=== PATIENT | male | born 1935 | race Caucasian/White ===

== ENCOUNTER → 2017-09-01 14:30 | Outpatient (CLI) | payer MEDICARE, OTHER, SELFPAY ==
--- NOTE | 2017-09-01 14:35 | US_ITS ---
STUDY: SUPERFICIAL ULTRASOUND - AREA OF THE PALPABLE ABNORMALITY JUST LATERAL TO THE KNEE JOINT. REASON FOR EXAM: Male, 82 years old. Palpable abnormality. TECHNIQUE: A superficial ultrasound was performed with real-time and static bloom-scale imaging. COMPARISON: None. FINDINGS: The area of the palpable abnormality corresponds to a 1.2 cm x 1.7 cm x 0.8 cm fluid collection. This may represent a Davila's cyst. US/Ext Non Vasc Limited/Soft Tiss IMPRESSION: Findings suggestive of Davila's cyst. Electronically Signed: Bryson Paige MD at 15:48 EDT Tel [phone], Service support ,
== END ==
PROVIDERS: Family Provider Family Medicine; PCP Family Medicine; Visit Provider Family Medicine
DX: R22.42 Localized swelling, mass and lump, left lower limb (principal)
CPT/HCPCS: 76882

== ENCOUNTER 2018-07-26 19:55 | Emergency (ER) | payer MEDICARE, OTHER, SELFPAY ==
[2018-05-13 10:56] VITALS: BMI 31.4
[2018-07-26 19:56] VITALS: BP 147/72; PULSE 60; RESP 16; TEMP 36.8; O2SAT 96; BMI 29.4
--- NOTE | 2018-07-26 20:13 | EKG12_ITS ---
Test Reason : Blood Pressure : / mmHG Vent. Rate : 072 BPM Atrial Rate : 068 BPM P-R Int : 000 ms QRS Dur : 136 ms QT Int : 396 ms P-R-T Axes : 000 -82 095 degrees QTc Int : 433 ms Ventricular-paced rhythm with occasional AV dual-paced complexes Abnormal ECG Confirmed by LA MATHEW, FAY ([id number]), managing editor YOSEPH DANIEL ([id number]) on 07/28/2018 1:33:59 PM Referred By: TL Confirmed By:FAY TOVAR MD
--- NOTE | 2018-07-26 20:13 | ED.VISSUMM ---
- ER Visit Summary Date of Service: 07/26/18 Chief Complaint: Palpitations History of Present Illness: The patient is a 83 M, reports feeling of palpitation and skipped beats since this afternoon. No chest pains. No lightheaded symptoms. 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 Denies recent cough. Had 2 loose stools yesterday and one small one today. He is on hydrochlorothiazide. No potassium replacement. Followed by Dr. Michaud, last seen 1.5 months ago. States has his pacemaker checked every 3-4 months. It was not checked the last time. Physical Examination: General: Alert and oriented ?3, no acute distress HEENT: Normocephalic, atraumatic. Moist mucosa membranes Neck: supple, nontender. Cardiovascular: Regular rate and irregular rhythm, no murmurs Respiratory: Normal breath sounds, symmetric, no distress Abdomen: Soft, nontender, nondistended Extremities: Nontender, no edema, pulses intact ?4 Neuro: no focal neurological deficits. Test Results: Paced rhythm, rate of 72, irregular rhythm. BMP: Potassium 3.4 Emergency Department Course and Treatment: Patient EKG concerns for more A. fib rhythm with a known right bundle branch block. His rate controlled. Rates in the 70s. Pacemaker likely demand pace usually thresholds at 60. He denies chest pains or lightheaded symptoms. He had diarrhea yesterday BMP sent noted potassium 3.4 is also on hydrochlorothiazide. Potassium will be replaced. Remain stable rate controlled. He is on metoprolol and Eliquis. Discussed following up as an outpatient with Dr. Watts. All questions were answered. Treatment Plan: [] Disposition: Discharge Impression: 1. Palpitations 2. A. fib rate controlled 3. Hypokalemia This note was generated with [employer] software. It may contain incorrect words, spelling, and punctuation that were not noted in review of the chart prior to signing ED Disposition - Plan for ED Patient: Disposition: Home or Assisted Living Diagnosis: Atrial fibrillation with controlled ventricular rate, Hypokalemia Instructions: ED Afib Referrals: Prosper Banks MD [Primary Care Provider] - Cal Michaud MD [STAFF PHYSICIAN] - 3-5 Days
[2018-07-26 21:02] LABS: Anion Gap 5 (5-15); BUN 26 mg/dL (7-18); Chloride 102 mmol/L (98-107); Creatinine, Serum 1.04 mg/dL (0.70-1.30); EST Glomerular Filtration Rate 72 mL/min (>60); Est Glom Filt Rate - Afr Amer 88 mL/min (>60); Estimated Creatinine Clearance 54.59 ml/min; Glucose 115 mg/dL (74-106); Potassium 3.4 mmol/L (3.5-5.1); Sodium Level 139 mmol/L (136-145)
[2018-07-26 21:12] VITALS: BP 131/96; PULSE 69; RESP 15; O2SAT 98
[2018-07-26 21:46] VITALS: BP 131/68; PULSE 60; RESP 18; O2SAT 98
== END 2018-07-26 21:55 | disposition home or self-care (01) ==
PROVIDERS: Emergency Provider Emergency Medicine; Family Provider Family Medicine; PCP Family Medicine
DX: I48.0 Paroxysmal atrial fibrillation (principal); E87.6 Hypokalemia; I10 Essential (primary) hypertension; I45.10 Unspecified right bundle-branch block; Z95.0 Presence of cardiac pacemaker; Z79.01 Long term (current) use of anticoagulants; Z79.899 Other long term (current) drug therapy; Z87.891 Personal history of nicotine dependence
CPT/HCPCS: 80048; 93005; 99285; A4216

== ENCOUNTER → 2018-08-11 16:03 | Outpatient (CLI) | payer MEDICARE, OTHER, SELFPAY ==
[2018-08-11 15:20] VITALS: BMI 29.7
[2018-08-11 17:02] LABS: Anion Gap 3 (5-15); BUN 23 mg/dL (7-18); BUN/Creat Ratio 25.6 RATIO (10-20); Calcium,Total 8.9 mg/dL (8.5-10.1); Chloride 105 mmol/L (98-107); EST Glomerular Filtration Rate 86 mL/min (>60); Est Glom Filt Rate - Afr Amer 104 mL/min (>60); Glucose 105 mg/dL (74-106); Potassium 3.7 mmol/L (3.5-5.1); Sodium Level 139 mmol/L (136-145)
== END ==
PROVIDERS: Family Provider Family Medicine; PCP Family Medicine; Referring Provider Physician Assistant Medical; Visit Provider Physician Assistant Medical
DX: I48.0 Paroxysmal atrial fibrillation (principal)
CPT/HCPCS: 36415; 80048

== ENCOUNTER → 2020-05-28 12:50 | Outpatient (CLI) | payer MEDICARE, OTHER, SELFPAY ==
[2020-05-15 09:32] VITALS: BMI 29.7
--- NOTE | 2020-05-28 12:52 | ECHOD_ITS ---
Reason For Study: Dyspnea/SOB Procedure This was a 2D Doppler, Color Flow transthoracic echocardiogram. Exam performed in department. Left Ventricle Normal LV size. Left ventricular systolic function is normal. The estimated ejection fraction is 65 %. Stage 1 diastolic dysfunction. No regional wall motion abnormalities noted. Right Ventricle Normal RV size. ICD or pacer leads identified within the right ventricle. Normal systolic function. Atria Normal left atrium. Normal right atrium. Mitral Valve Normal mitral valve. Tricuspid Valve Normal tricuspid valve. Mild (1+) tricuspid valve insufficiency. Pulmonary artery systolic pressure is 40 mmHg. Aortic Valve Normal aortic valve. Trisinus/trileaflet aortic valve. Pulmonic Valve Normal pulmonic valve. Great Vessels Normal aortic root. The pulmonary artery is normal size. Normal inferior vena cava. Pericardium/Pleural No pericardial effusion. MMode/2D Measurements & Calculations LVIDd: 4.0 cm IVSd: 1.8 cm Ao root diam: 3.6 cm LVIDs: 2.4 cm LVPWd: 1.3 cm RVDd: 3.7 cm FS: 41.1 % LAV(MOD-bp): 54.5 ml LVAd ap4: 27.6 cm2 SV(MOD-sp4): 46.1 ml LAV(MOD-bp) Indexed: 26.8 ml/m2 EDV(MOD-sp4): 71.2 ml LAV(MOD-sp2): 51.8 ml EDV(sp4-el): 73.2 ml LAV(MOD-sp4): 58.0 ml LVAs ap4: 14.1 cm2 ESV(MOD-sp4): 25.1 ml ESV(sp4-el): 23.9 ml EF(MOD-sp4): 64.8 % EF(sp4-el): 67.4 % SV(sp4-el): 49.4 ml LA A4 area: 20.1 cm2 LA dimension(2D): 4.7 cm RA A4 area: 21.5 cm2 Doppler Measurements & Calculations MV E max tavo: 74.9 cm/sec Lat Peak E' Tavo: 8.6 cm/sec Med Peak E' Tavo: 6.2 cm/sec MV A max tavo: 82.1 cm/sec E/E' lat: 8.7 E/E' med: 12.1 MV E/A: 0.91 Ao V2 max: 187.2 cm/sec LV V1 max: 155.6 cm/sec PA V2 max: 116.5 cm/sec Ao max P.0 mmHg LV V1 max P.7 mmHg Ao V2 mean: 134.3 cm/sec Ao mean P.9 mmHg Ao V2 VTI: 38.7 cm TR max tavo: 298.1 cm/sec TR max P.5 mmHg Interpretation Summary Normal LV size. Left ventricular systolic function is normal. The estimated ejection fraction is 65 %. Stage 1 diastolic dysfunction. Pulmonary artery systolic pressure is 40 mmHg. ICD or pacer leads identified within the right ventricle. Ordering Physician: Cal Michaud Referring Physician: Prosper Banks Performed By: Celsa Jaime, DENICE, RVT
== END ==
PROVIDERS: PCP Family Medicine; Referring Provider Internal Medicine Cardiovascular Disease; Visit Provider Internal Medicine Cardiovascular Disease
DX: Z01.810 Encounter for preprocedural cardiovascular examination (principal); R06.02 Shortness of breath
CPT/HCPCS: 93306

== ENCOUNTER → 2021-04-02 11:03 | Outpatient (CLI) | payer MEDICARE, OTHER, SELFPAY ==
[2021-04-02 12:30] LABS: Hematocrit 40.5 % (40-54); Hemoglobin 13.2 g/dL (13.0-16.5); Mean Corp Hgb Conc 32.6 g/dL (32-36); Mean Platelet Vol. 10.2 fl (6.2-12.0); Platelet Count 137 K/mm3 (150-450); RBC Distribution Width CV 12.6 % (11.6-14.6); RBC Distribution Width SD 42.7 fl (35.1-43.9); White Blood Count 8.7 K/mm3 (4.4-11.0)
[2021-04-02 13:18] LABS: BNP,B-Type NATRIURETIC PEPTIDE 89.7 pg/mL (0-100)
[2021-04-02 13:31] LABS: CRP < 2.90 mg/L (0.0-3.0); Troponin-I HS 8 pg/mL (3.0-78.0)
== END ==
PROVIDERS: PCP Family Medicine; Referring Provider Nurse Practitioner Family; Visit Provider Nurse Practitioner Family
DX: M79.89 Other specified soft tissue disorders (principal); I25.10 Atherosclerotic heart disease of native coronary artery without angina pectoris; I48.0 Paroxysmal atrial fibrillation; I25.9 Chronic ischemic heart disease, unspecified; R06.02 Shortness of breath
CPT/HCPCS: 36415; 83880; 84443; 84484; 85027; 86140

== ENCOUNTER 2021-04-10 10:36 | Outpatient (CLI) | payer MEDICARE, OTHER, SELFPAY ==
--- NOTE | 2021-04-10 10:39 | VDLE_ITS ---
Reason For Study: LLE swelling Procedure LEFT This is a venous duplex using B-mode, color GSV is normal. flow and spectral Doppler. CFV is compressible, spontaneous, phasic, Exam performed in department. competent, and demonstrates normal A preliminary report was called and/or faxed augmentation. to Darcie Patrick @ 11:00 am @ FV is compressible, spontaneous, phasic, . competent and demonstrates normal augmentation. POP V is compressible, spontaneous, phasic, competent and demonstrates normal augmentation. T/P Trunk is compressible. PTV is compressible. LT PerV is compressible. Non-vasuclar structure noted in the pop fossa space measuring 3.17cm x 1.47cm. VL/Venous Duplex US, Unilateral Interpretation Summary There is no evidence of left lower extremity deep vein thrombosis. Left great s aphenous vein appears patent and compressible segmentally. Left popliteal space oval nonvascular cyst ic structure measuring 3.17 x 1.47 cm in diameter. Clinical correlation would be appropriate . This appears to be somewhat more superficial than a typical Davila's cyst. Ordering Physician: Darcie Patrick Referring Physician: Prosper Bakns Performed By: Caity Tian, DENICE, RVT
== END 2021-04-10 23:59 | disposition short-term general hospital (02) ==
PROVIDERS: PCP Family Medicine; Referring Provider Physician Assistant Medical; Visit Provider Physician Assistant Medical
DX: R60.0 Localized edema (principal)
CPT/HCPCS: 93971

== ENCOUNTER 2021-04-12 10:54 | Outpatient (CLI) | payer MEDICARE, OTHER, SELFPAY ==
--- NOTE | 2021-04-12 10:59 | ECHOD_ITS ---
Reason For Study: Murmur Procedure This was a 2D Doppler, Color Flow transthoracic echocardiogram. Exam performed in department. Left Ventricle Normal LV size. Left ventricular systolic function is normal. The estimated ejection fraction is 70 %. Stage 1 diastolic dysfunction. No regional wall motion abnormalities noted. Right Ventricle Normal RV size. ICD or pacer leads identified within the right ventricle. Normal systolic function. Atria Normal left atrium. Normal right atrium. Mitral Valve Normal mitral valve. Tricuspid Valve Normal tricuspid valve. Mild tricuspid valve insufficiency. Pulmonary artery systolic pressure is 34 mmHg. Aortic Valve Normal aortic valve. Trisinus/trileaflet aortic valve. Mild (1+) aortic valve insufficiency. Pulmonic Valve Normal pulmonic valve. Great Vessels Normal aortic root. The pulmonary artery is normal size. Normal inferior vena cava. Pericardium/Pleural No pericardial effusion. MMode/2D Measurements & Calculations LVIDd: 4.2 cm IVSd: 1.1 cm LA dimension: 3.5 cm LVIDs: 2.2 cm LVPWd: 0.71 cm FS: 46.6 % LAV(MOD-bp): 64.1 ml LA A4 area: 22.3 cm2 RA A4 area: 19.1 cm2 LAV(MOD-bp) Indexed: 30.5 ml/m2 LAV(MOD-sp2): 61.7 ml LAV(MOD-sp4): 68.1 ml Time Measurements MV dec time: 0.29 sec Doppler Measurements & Calculations MV E max tavo: 67.7 cm/sec Lat Peak E' Tavo: 6.9 cm/sec Med Peak E' Tavo: 7.1 cm/sec MV A max tavo: 90.5 cm/sec E/E' lat: 9.8 E/E' med: 9.5 MV E/A: 0.75 MV V2 max: 95.1 cm/sec MV P1/2t max tavo: 80.1 cm/sec Ao V2 max: 185.1 cm/sec MV max P.6 mmHg MV P1/2t: 121.1 msec Ao max P.7 mmHg MV V2 mean: 48.7 cm/sec MV dec slope: 193.8 cm/sec2 MV mean P.1 mmHg MVA(P1/2t): 1.8 cm2 MV V2 VTI: 30.1 cm AI max tavo: 344.6 cm/sec LV V1 max: 159.4 cm/sec PA V2 max: 113.4 cm/sec AI max P.5 mmHg LV V1 max P.2 mmHg AI dec slope: 124.5 cm/sec2 AI P1/2t: 810.4 msec TR max tavo: 264.7 cm/sec TR max P.0 mmHg ECHO/Echo Complete Interpretation Summary Normal LV size. Left ventricular systolic function is normal. The estimated ejection fraction is 70 %. Stage 1 diastolic dysfunction. Pulmonary artery systolic pressure is 34 mmHg. Ordering Physician: Darcie Patrick Referring Physician: Darcie Patrick Performed By: Duncan Ambrocio RCS
== END 2021-04-12 23:59 | disposition short-term general hospital (02) ==
LOC: CVS 10:58
PROVIDERS: PCP Family Medicine; Referring Provider Physician Assistant Medical; Visit Provider Physician Assistant Medical
DX: I48.0 Paroxysmal atrial fibrillation (principal)
CPT/HCPCS: 93306

== ENCOUNTER 2021-11-26 18:19 | Emergency (ER) | payer MEDICARE, OTHER, SELFPAY ==
[2021-11-26 18:20] VITALS: BP 145/89; PULSE 70; RESP 18; TEMP 36.6; O2SAT 97; BMI 28.5
--- NOTE | 2021-11-26 18:41 | CT_ITS ---
STUDY: CT BRAIN WITHOUT CONTRAST REASON FOR EXAM: Male, 86 years old. dizzy RADIATION DOSAGE (If Supplied By Facility): CTDIvol = ( 44.99 ) mGy, DLP = ( 829.85 ) mGycm TECHNIQUE: Transaxial CT imaging of the brain was performed without administration of intravenous contrast material. Individualized dose optimization techniques were used for this CT. COMPARISON: No relevant priors. FINDINGS: Normal soft tissue structures. Normal calvarium. There is mild cerebral atrophy with widening of the extra-axial spaces and ventricular dilatation. There are areas of decreased attenuation within the white matter tracts of the supratentorial brain, consistent with microvascular disease changes. There is no intracranial hemorrhage. There are no findings of an acute ischemic infarction. Normal visualized paranasal sinuses. CT/Brain/Head without Contrast IMPRESSION: No acute findings. Mild microvascular ischemic changes. Atrophy. Electronically Signed: Jaki Vargas MD at 19:46 EDT Reading Location ID and State: [id number] / Tel , Service support ,
--- NOTE | 2021-11-26 18:42 | EDS_ITS ---
HPI History of Present Illness Chief Complaint: Dizziness Informant: patient Narrative Narrative: Patient presents with episodic dizziness. He states this first episode was Thursday morning when he woke up. When he first stood up he felt dizzy. He had a true sense of spinning and motion. Once he stabilized himself he was able to walk and do his normal activity during the day. When he laid all the way down at night on Thursday he got the symptoms again but they resolved. He has noticed since then that most of the time if he changes position significantly he will get dizziness. For him dizziness is spinning and a sense of motion. It is not syncope or presyncope or lightheadedness. He is not having it sitting in bed. He does not have a history of vertigo. No change in medications. He is on Eliquis for history of A. fib. He also has a pacer. Other than the dizziness episodes he feels fine. No nausea vomiting really. No fevers. No chest pain palpitations. No blood in the stool. [facility] Medical History Bradycardia Essential (primary) hypertension Hyperlipidemia Obstructive sleep apnea Paroxysmal ventricular tachycardia Premature ventricular contractions 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 Home Medications multivitamin with folic acid 400 mcg tablet 1 tab PO DAILY 01/18/13 [History Last Taken 07/26/18] nitroglycerin 0.4 mg sublingual tablet 0.4 mg sublingual Q5M PRN Chest Pain 01/18/13 [History Last Taken 07/26/18] acetaminophen 500 mg capsule 500 mg PO Q6H PRN Pain 04/10/21 [History Last Taken Unknown] latanoprost 0.005 % eye drops 1 drp ophthalmic (eye) DAILY 30 days #2 mL 04/10/21 [History Last Taken Unknown] hydrochlorothiazide 25 mg tablet 25 mg PO QDAY #90 tabs 05/06/21 [Rx Last Taken Unknown] apixaban 5 mg tablet (Eliquis) 5 mg PO BID #180 tabs 08/05/21 [Rx Last Taken Unknown] metoprolol succinate 50 mg tablet,extended release 24 hr 50 mg PO QDAY #90 tabs 08/05/21 [Rx Last Taken Unknown] pravastatin 40 mg tablet 40 mg PO QHS #90 tabs 05/31/22 [Rx Last Taken Unknown] meclizine 25 mg tablet 25 mg PO TID PRN dizziness #20 tabs 11/26/21 [Rx Last Taken Unknown] Allergy/AdvReac Type Severity Reaction Status Date / Time No Known Allergies Allergy Verified 11/26/21 18:23 Family History Father , age 77 Cancer larynx and prostate Surgical History Cardiac pacemaker in situ (01/2013) Social History Smoking Status: Former smoker how long ago did patient quit smokin alcohol intake: current alcohol intake frequency: a few times a week Alcohol type: wine substance use type: does not use caffeine: No ROS ROS ED Constitutional Constitutional ED: Denies chills, fever(s), subjective or sweats Eyes Eyes: Denies blurry vision, change in vision or diplopia ENT ENT ED: Denies rhinorrhea or sore throat Cardiovascular Cardiovascular: Denies chest pain, palpitations or racing heartbeat Respiratory/Chest Respiratory/Chest: Denies cough or dyspnea Gastrointestinal Gastrointestinal: Denies abdominal pain, nausea or vomiting Genitourinary Genitourinary ED: Denies dysuria Musculoskeletal Musculoskeletal: Denies arthralgias or myalgias Integumentary Denies rash Neurologic Neurologic: Denies headache(s), paresthesias or weakness Psychiatric Psychiatric: Denies anxiety Endocrine Endocrinology: Denies polydipsia or polyuria Hematologic/Lymphatic Hematologic/Lymphatic: Reports easy bleeding and easy bruising Allergic/Immunologic Allergic/Immunologic ED: Denies urticaria EXAM Physical Exam Const Vital Signs: 11/26/21 18:20 11/26/21 18:29 11/26/21 19:38 Temperature 98 F Temperature Source Oral Pulse Rate 70 73 Respiratory Rate 18 26 H Respiratory Effort Normal Non-Labored Blood Pressure 145/89 H 134/95 H Blood Pressure Mean 107 108 Pulse Ox 97 94 Oxygen Delivery Method Room Air Room Air 11/26/21 21:00 Temperature Temperature Source Pulse Rate 70 Respiratory Rate 20 H Respiratory Effort Blood Pressure 148/111 H Blood Pressure Mean 123 Pulse Ox 91 Oxygen Delivery Method Room Air Positive well nourished and well developed General Appearance ED: well developed and NAD; Negative for cyanotic or diaphoretic HEENT Reports moist mucous membranes Eyes PERRL and EOMs intact bilaterally Neck no JVD Chest Wall inspection of chest normal Chest Narrative: Pacer in left upper chest wall. Resp normal respiratory effort Cardio regular rate and regular rhythm Rate: other Other Details: Monitor appears to show paced rhythm GI normal to inspection, nondistended, normoactive bowel sounds, non-tender and no masses Palpation: soft Back/Spine no CVA tenderness Extremity normal to inspection General Extremety ED: Negative for tenderness Neuro oriented x3 Neuro Narrative: Patient is not having symptoms now. I did lay him down looking up into the left and right. He really did not have symptoms this time. He states is not every time he moves just sometimes. However, he also was fixated with his eyes on 1 spot and this can suppress vertigo. There was no nystagmus visible Psych mental status grossly normal Skin no rashes or lesions noted Rashes: No rashes noted Trauma: Negative for abrasion MDM MDM MDM Narrative Medical decision making narrative: Patient's labs show minimal anemia which is a nonspecific finding. Electrolytes are overall normal. CT scan shows no acute process. Patient was treated with 1 meclizine here. He was given a little bit of IV fluids. He is feeling better. He actually walked down the [place] and back without difficulty to go to the bathroom. He is not feeling the vertigo at this point. We discussed that he has had symptoms off and on for 3 days. They are generally motion related. He gets a true spinning sense that then goes away. This is not a typical pattern for stroke. We will get him home with meds and close follow- up. We did talk about specific reasons to bring him back. Lab Data Attestation: I reviewed the patient's lab results. Labs: Laboratory Results - last 24 hr 11/26/21 11/26/21 18:55 18:55 WBC 7.0 RBC 4.30 L Hgb 12.7 L Hct 39.3 L MCV 91.4 MCH 29.5 MCHC 32.3 RDW Std Deviation 43.2 RDW Coeff of Jeremiah 13.0 Plt Count 133 L MPV 9.7 Immature Gran % (Auto) 0.300 Neut % (Auto) 76.0 H Lymph % (Auto) 12.4 L [place] % (Auto) 9.1 Eos % (Auto) 1.9 Baso % (Auto) 0.3 Absolute Neuts (auto) 5.3 Absolute Lymphs (auto) 0.87 Nucleated RBC % 0 Sodium 140 Potassium 3.5 Chloride 103 Carbon Dioxide 31.0 Anion Gap 6 BUN 21 H Creatinine 0.98 Estim Creat Clear Calc 54.83 Est GFR (MDRD) Af Amer 93 Est GFR (MDRD) Non-Af 77 BUN/Creatinine Ratio 21.4 H Glucose 105 Calcium 9.2 Radiography Diagnostic Testing: Clinical Impression(s) from Imaging Studies Brain CT 11/26/21 18:41 IMPRESSION: No acute findings. Mild microvascular ischemic changes. Atrophy. Electronically Signed: Jaki Vargas MD at 19:46 EDT Reading Location ID and State: [id number] / Tel , Service support , Discharge Plan Triage Chief Complaint: Dizziness ED Provider: Ranjit Renteria Dx/Rx/DC Orders Clinical Impression: Vertigo Instructions: ED Vertigo, Unspecified Prescriptions: New meclizine 25 mg tablet 25 mg PO TID PRN (Reason: dizziness) Qty: 20 0RF No Action latanoprost 0.005 % drops 1 drp OPHTHALMIC DAILY 30 Days Qty: 2 acetaminophen 500 mg capsule 500 mg PO Q6H PRN (Reason: Pain) nitroglycerin 0.4 MG tablet 0.4 mg SUBLINGUAL Q5M PRN (Reason: Chest Pain) Label Comments: RELIEF CHEST PAIN multivitamin with folic acid 1 TABLET tablet 1 tab PO DAILY Label Comments: VITAMENS hydrochlorothiazide 25 mg tablet 25 mg PO QDAY Qty: 90 3RF metoprolol succinate 50 mg tablet extended release 24 hr 50 mg PO QDAY Qty: 90 3RF Eliquis 5 mg tablet 5 mg PO BID Qty: 180 3RF pravastatin 40 mg tablet 40 mg PO QHS Qty: 90 3RF Primary Care Provider: Manuela Ribera Referrals: Manuela Ribera, [Primary Care Provider] - 3-5 Days Disposition Disposition: Home, Self Care
[2021-11-26] MEDS: Meclizine HCl 25 MG Tablet PO (18:54)
[2021-11-26 19:00] LABS: Absolute Lymphocyte Count 0.87 X10^3/uL (0.83-4.51); Absolute Neutrophil Count 5.3 X10^3/uL (2.0-7.7); Basophil# 0.02 X10^3/uL; Basophil% 0.3 % (0-1); Eosinophil# 0.13 X10^3/uL; Eosinophils% 1.9 % (0-5); Hematocrit 39.3 % (40-54); Hemoglobin 12.7 g/dL (13.0-16.5); Lymphocyte # 0.87 X10^3/ul (0.83-4.51); Lymphocyte % 12.4 % (19-41); Mean Corp Hgb Conc 32.3 g/dL (32-36); Mean Corpuscular Hgb 29.5 pg (27.0-32.0); Mean Corpuscular Volume 91.4 fL (80-94); Mean Platelet Vol. 9.7 fl (6.2-12.0); Monocyte# 0.64 X10^3/uL; Monocyte% 9.1 % (0-10); NRBC Flagged by Analyzer 0 % (0-5); Neutrophil # 5.33 X10^3/uL (2.7-7.7); Platelet Count 133 K/mm3 (150-450); RBC Distribution Width SD 43.2 fl (35.1-43.9)
[2021-11-26 19:14] LABS: Anion Gap 6 (5-15); BUN 21 mg/dL (7-18); BUN/Creat Ratio 21.4 RATIO (10-20); Calcium,Total 9.2 mg/dL (8.5-10.1); Chloride 103 mmol/L (98-107); Creatinine, Serum 0.98 mg/dL (0.70-1.30); EST Glomerular Filtration Rate 77 mL/min (>60); Est Glom Filt Rate - Afr Amer 93 mL/min (>60); Estimated Creatinine Clearance 54.83 ml/min; Glucose 105 mg/dL (74-106); Potassium 3.5 mmol/L (3.5-5.1); Sodium Level 140 mmol/L (136-145)
[2021-11-26 19:38] VITALS: BP 134/95; PULSE 73; RESP 26; O2SAT 94
[2021-11-26 21:00] VITALS: BP 148/111; PULSE 70; RESP 20; O2SAT 91
[2021-11-26 22:35] VITALS: BP 129/79; PULSE 67; RESP 15; O2SAT 94
== END 2021-11-26 22:58 | disposition home or self-care (01) ==
PROVIDERS: Emergency Provider Emergency Medicine; PCP Family Medicine; Visit Provider Emergency Medicine
DX: R42 Dizziness and giddiness (principal); I48.91 Unspecified atrial fibrillation; I10 Essential (primary) hypertension; E78.5 Hyperlipidemia, unspecified; Z95.0 Presence of cardiac pacemaker; Z79.01 Long term (current) use of anticoagulants; Z79.899 Other long term (current) drug therapy; Z87.891 Personal history of nicotine dependence
CPT/HCPCS: 70450; 80048; 85025; 96360; 99285; J7030

== ENCOUNTER 2022-09-02 22:06 | Inpatient (IN) | payer MEDICARE, OTHER, SELFPAY ==
[2022-09-02 22:07] VITALS: BP 124/77; PULSE 78; RESP 16; TEMP 37; O2SAT 97; BMI 28.5
[2022-09-02 22:25] VITALS: BP 121/67; PULSE 70; RESP 15; TEMP 37; O2SAT 97
--- NOTE | 2022-09-02 23:20 | RAD_ITS ---
STUDY: X-RAY - PELVIS AND RIGHT HIP REASON FOR EXAM: Male, 87 years old. Fell on steps. Severe hip pain. TECHNIQUE: 3 views of the pelvis and hip. COMPARISON: None. FINDINGS: There is a non-specific bowel gas pattern. Normal visualized soft tissue structures. There are multiple calcified phleboliths. There are vascular calcifications along the course of the bilateral iliac and femoral arteries. Normal bilateral iliac wings, sacroiliac joints and visualized sacrum. Normal bilateral superior and inferior pubic rami. Normal pubic symphysis. Normal bilateral ischial tuberosities. Normal visualized right femoral head. Normal right acetabulum. Normal right hip joint. RAD/HIP, UNI W/ Pelvis 2-3 Views IMPRESSION: 1. No evidence of right hip fracture or dislocation. 2. Intact pelvis. Electronically Signed: Aubrey Franz DO at 23:55 EDT ,
[2022-09-03] VITALS (7 sets, daily range): BP systolic 118–154; BP diastolic 70–86; PULSE 68–95; RESP 16–20; TEMP 36.3–37.1; O2SAT 93–97; BMI 27.3
--- NOTE | 2022-09-03 01:37 | HP.PCM.HOS_ITS ---
HPI - General General Date of Admission: 09/03/22 Date of Service: 09/03/22 Chief Complaint: severe right hamstring pain HPI Narrative EMMANUEL MARIE, is a 87 M who presents w/ severe right hamstring pain, worsened after stepping up with right leg on steps and then experiencing excruciating pain. He had soreness in right hamstring prior for several weeks (does not recall inciting event several weeks ago). He required a neighbor for assistance in moving and getting to hospital. He lives alone, with son in basement who is sometimes nearby. There is only pain with attempted weight bearing or flexion. No pain present while lying in bed. Xrays without fracture. He could not walk in ED so was admitted. The patient realizes he may need PT or rehab. He is very active for 87 yo. He is on eliquis for paroxysmal A fib and denies bleeding events but does have easy bruising. [facility] Medical History (Updated 09/03/22 @ 01:[address] David Frederick MD) Bradycardia Essential (primary) hypertension Former smoker Hyperlipidemia Obstructive sleep apnea Osteoporosis Paroxysmal ventricular tachycardia Premature ventricular contractions 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 Home Medications multivitamin with folic acid 400 mcg tablet 1 tab PO DAILY 01/18/13 [History Last Taken 07/26/18] nitroglycerin 0.4 mg sublingual tablet 0.4 mg sublingual Q5M PRN Chest Pain 01/18/13 [History Last Taken 07/26/18] acetaminophen 500 mg capsule 500 mg PO Q6H PRN Pain 04/10/21 [History Last Taken Unknown] latanoprost 0.005 % eye drops 1 drp ophthalmic (eye) DAILY 30 days #2 mL 04/10/21 [History Last Taken Unknown] hydrochlorothiazide 25 mg tablet 25 mg PO QDAY #90 tabs 06/09/22 [Rx Last Taken Unknown] pravastatin 40 mg tablet 40 mg PO QHS #90 tabs 07/08/22 [Rx Last Taken Unknown] apixaban 5 mg tablet (Eliquis) 5 mg PO BID #180 tabs 08/18/22 [Rx Last Taken Unknown] metoprolol succinate 50 mg tablet,extended release 24 hr 50 mg PO QDAY #90 tabs 08/18/22 [Rx Last Taken Unknown] Allergy/AdvReac Type Severity Reaction Status Date / Time No Known Allergies Allergy Verified 04/14/22 11:10 Family History Father , age 77 Cancer larynx and prostate Surgical History Cardiac pacemaker in situ (01/2013) Social History Smoking Status: Former smoker how long ago did patient quit smokin alcohol intake: current alcohol intake frequency: a few times a week Alcohol type: wine substance use type: does not use caffeine: No Vital Signs Vital Signs Vital Signs: 09/02/22 22:07 09/02/22 22:18 09/02/22 22:25 Temperature 98.6 F 98.6 F Temperature Source Oral Oral Pulse Rate 78 70 Respiratory Rate 16 15 Respiratory Effort Normal Respiratory Depth Normal Respiratory Pattern Normal Blood Pressure 124/77 H 121/67 H Blood Pressure Mean 92 85 Pulse Ox 97 97 Oxygen Delivery Method Room Air Room Air Room Air 09/03/22 00:47 Temperature Temperature Source Pulse Rate 87 Respiratory Rate 16 Respiratory Effort Respiratory Depth Respiratory Pattern Blood Pressure 137/73 H Blood Pressure Mean 94 Pulse Ox 97 Oxygen Delivery Method Room Air Weight Weight: 199 lb 4.766 oz Body Mass Index (BMI) 28.5 Physical Exam Const alert, no apparent distress, average body habitus and healthy appearing HEENT normocephalic and head/scalp atraumatic Eyes PERRL Neck no lymphadenopathy Resp normal respiratory effort and no retractions Cardio regular rate and regular rhythm GI normal to inspection, nondistended, normoactive bowel sounds Extremity Extremity Narrative: Pain becomes severe in right hamstring with hip flexion on right side. Psych affect normal Results Radiology Impression Hip/Pelvis X-Ray 09/02/22 23:20 IMPRESSION: 1. No evidence of right hip fracture or dislocation. 2. Intact pelvis. Electronically Signed: Aubrey Franz DO at 23:55 EDT Reading Location ID and State: [facility] / [place] Tel [phone], Service support , Assessment & Plan Assessment/Plan (1) Persistent atrial fibrillation: (2) Central sleep apnea: (3) Cardiac pacemaker in situ: (4) Right leg pain: PLAN: Plan Right hamstring sprain likely Tylenol and Tramadol for pain PT, OT Pelvic xray w/o fracture. Sounds muscular in etiology based on hx and exam. Case management ask Orthopedic consult for advice Paroxysmal Afib - Resume home meds, eliquis. HTN - Continue HCTZ Central Apnea - resume Bipap Charges/Coding Visit Charges Inpatient E&M: 72220 Init Hosp L2
--- NOTE | 2022-09-03 01:45 | EDS_ITS ---
HPI History of Present Illness Chief Complaint: Fall Narrative Narrative: Patient is an 87-year-old male who lives at home with past medical of hypertension and previous atrial fibrillation requiring cardiac pacemaker who is currently on Eliquis. He states that over the last 2 to 3 weeks he has noticed some pain in his right hip/leg. He states the pain is located essentially between his buttocks and upper thigh. He denies any injury or excessive activity prior to the pain beginning. He states he has been able to ambulate but that today after being outside watering his plants as he stepped back up onto his step he used his right leg and as he put pressure down developed severe pain causing him to fall. He states he fell into the bushes denies striking his head or any loss of consciousness. He states however that he could not get back up secondary to pain with each time he tried to bear weight on his right leg and with concern for underlying injury was brought in for evaluation [facility] Medical History (Updated 09/03/22 @ 02:[address] Bonilla Babcock, DO) Bradycardia Essential (primary) hypertension Former smoker Hyperlipidemia Obstructive sleep apnea Osteoporosis Paroxysmal ventricular tachycardia Premature ventricular contractions 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 Home Medications multivitamin with folic acid 400 mcg tablet 1 tab PO DAILY 01/18/13 [History Last Taken 07/26/18] nitroglycerin 0.4 mg sublingual tablet 0.4 mg sublingual Q5M PRN Chest Pain 01/18/13 [History Last Taken 07/26/18] acetaminophen 500 mg capsule 500 mg PO Q6H PRN Pain 04/10/21 [History Last Taken Unknown] latanoprost 0.005 % eye drops 1 drp ophthalmic (eye) DAILY 30 days #2 mL 04/10/21 [History Last Taken Unknown] hydrochlorothiazide 25 mg tablet 25 mg PO QDAY #90 tabs 06/09/22 [Rx Last Taken Unknown] pravastatin 40 mg tablet 40 mg PO QHS #90 tabs 07/08/22 [Rx Last Taken Unknown] apixaban 5 mg tablet (Eliquis) 5 mg PO BID #180 tabs 08/18/22 [Rx Last Taken Unknown] metoprolol succinate 50 mg tablet,extended release 24 hr 50 mg PO QDAY #90 tabs 08/18/22 [Rx Last Taken Unknown] Allergy/AdvReac Type Severity Reaction Status Date / Time No Known Allergies Allergy Verified 04/14/22 11:10 Family History Father , age 77 Cancer larynx and prostate Surgical History (Updated 09/03/22 @ 02:[address] Bonilla Babcock DO) Cardiac pacemaker in situ (01/2013) Social History Smoking Status: Former smoker how long ago did patient quit smokin alcohol intake: current alcohol intake frequency: a few times a week Alcohol type: wine substance use type: does not use caffeine: No ROS ROS ED Constitutional Constitutional ED: Denies chills or fever(s) Eyes Eyes: Denies blurry vision or change in vision ENT ENT ED: Denies sore throat Cardiovascular Cardiovascular: Denies chest pain Respiratory/Chest Respiratory/Chest: Denies cough or dyspnea Gastrointestinal Gastrointestinal: Denies abdominal pain, diarrhea, nausea or vomiting Genitourinary Genitourinary ED: Denies dysuria Musculoskeletal Musculoskeletal: Reports other Details: Positive right hip/leg pain ; Denies back pain or neck pain Integumentary Denies Abrasions or rash Neurologic Neurologic: Denies headache(s), paresthesias or weakness Hematologic/Lymphatic Hematologic/Lymphatic: Reports easy bleeding and easy bruising EXAM Physical Exam Const Vital Signs: 09/02/22 22:07 09/02/22 22:18 09/02/22 22:25 Temperature 98.6 F 98.6 F Temperature Source Oral Oral Pulse Rate 78 70 Respiratory Rate 16 15 Respiratory Effort Normal Respiratory Depth Normal Respiratory Pattern Normal Blood Pressure 124/77 H 121/67 H Blood Pressure Mean 92 85 Pulse Ox 97 97 Oxygen Delivery Method Room Air Room Air Room Air 09/03/22 00:47 09/03/22 01:55 Temperature 98.7 F Temperature Source Oral Pulse Rate 87 89 Respiratory Rate 16 16 Respiratory Effort Respiratory Depth Respiratory Pattern Blood Pressure 137/73 H 133/83 H Blood Pressure Mean 94 99 Pulse Ox 97 97 Oxygen Delivery Method Room Air Room Air Positive well nourished and well developed General Appearance ED: well developed HEENT HEENT Narrative: Normocephalic atraumatic Eyes PERRL and EOMs intact bilaterally Neck supple Neck Narrative: No midline pain on palpation no bony deformity or step-off of the cervical spine Chest Wall palpation of chest normal Resp normal respiratory effort and clear to auscultation bilaterally Cardio regular rate and regular rhythm GI normal to inspection, nondistended, normoactive bowel sounds, non-tender, non- distended and no masses GI Narrative: No voluntary guarding or rigidity no pulsatile mass Auscultation: normoactive bowel sounds Palpation: soft Back/Spine Back/Spine Narrative: No bony deformity or step-off of the thoracic or lumbar spine no midline pain with palpation Extremity Extremity Narrative: Pelvis is stable there is no shortening or external rotation of either lower extremity. There is no pain on palpation in the inguinal regions bilaterally. No pain on palpation over top the greater trochanter. There is mild pain on palpation in the posterior upper thigh just prior to the buttocks without obvious bony deformity or joint effusion. Passive range of motion reveals no pain. Active range of motion is just minimally decreased secondary to pain. There is no asymmetric edema or pitting edema and negative Homans' sign bilaterally. Neuro oriented x3 and CN's II-XII intact bilaterally Sensorium / Orientation: alert Psych mental status grossly normal Skin no rashes or lesions noted MDM MDM MDM Narrative Medical decision making narrative: Patient presented to the ER awake alert and oriented with no signs of trauma and reported a mechanical fall and therefore there is no need for cardiac or syncope work-up. Differential diagnosis includes hip fracture versus hip dislocation versus pubic rami fracture versus muscular tear. I discussed with patient that as he is over 64 and on Eliquis and fell we are not wrong to CT his head. However he has no signs of head trauma he is awake alert and oriented with no headache light sensitivity or nausea or vomiting. I informed him my concern for underlying traumatic brain injury is low yield and therefore he does not want a CT scan obtained. X-rays of the right hip/pelvis were ordered secondary to his pain with weightbearing and revealed no acute finding. The patient was pain- free at rest and did not have signs to suggest DVT and as he only has pain with weightbearing do feel this is most likely a muscular tear which will be noted on MRI. We did attempt to ambulate the patient with a walker but as soon as he goes to bear weight on his right leg is unable to do so secondary to severe pain. Therefore at this time as the patient cannot ambulate I do not feel he is safe for discharge and therefore I will contact medicine. Hospitalist was contacted and they do agree to accept the patient at this time therefore he will be admitted for potential PT OT evaluation and he is agreeable to rehab or assisted if deemed necessary History & Record Review Discussion w/independent historian: Patient and Family Radiography Diagnostic Testing: Clinical Impression(s) from Imaging Studies Hip/Pelvis X-Ray 09/02/22 23:20 IMPRESSION: 1. No evidence of right hip fracture or dislocation. 2. Intact pelvis. Electronically Signed: Aubrey Franz DO at 23:55 EDT Reading Location ID and State: [address] [place] [address] Tel [phone], Service support , X-ray of the right hip with 1 view pelvis as interpreted by the emergency medicine physician reveals no acute fracture or dislocation Discharge Plan Dx/Rx/DC Orders Clinical Impression: Inability to walk, Essential (primary) hypertension, Cardiac pacemaker in situ, Persistent atrial fibrillation, Current use of [employer] anticoagulation Disposition Disposition: Acute Care Hospital [facility]
--- NOTE | 2022-09-03 03:08 | CPS ---
patient stated that he wears asv machine at home. rt explained to patient that hospital doesnt have a asv machine. patient stated that he is fine tonight and will have family bring in machine today.
[2022-09-03] MEDS: Latanoprost 0.005% 1 Bottle 1 DRP EACH EYE ×2 (03:38→21:33)
--- NOTE | 2022-09-03 07:25 | CT_ITS ---
STUDY: CT PELVIS WITHOUT CONTRAST REASON FOR EXAM: Male, 87 years old. Intractable R hip pain, assure no fracture RADIATION DOSAGE (If Supplied By Facility): CTDIvol = ( 22.09 ) mGy, DLP = ( 855.05 ) mGycm TECHNIQUE: Transaxial imaging of the pelvis was performed with oral contrast, and without intravenous administration of contrast material. Multiplanar coronal and sagittal images were reformatted. Individualized dose optimization techniques were used for this CT. COMPARISON: Comparison is made with prior radiograph dated September 02, 2022. FINDINGS: Distended urinary bladder. There is a 6.9 cm x 7.5 cm cyst in the left midabdomen most likely represent a cyst arising from the lower pole of the left kidney. Normal visualized small intestine. Normal visualized colon. There is no pelvic fluid. There is no pelvic mass lesion or lymphadenopathy. Normal visualized pelvic arteries. Normal abdominal wall. Limited visualization of the lumbar spine. Mild loss of height of the superior endplate of the L4 vertebrae. Moderate degree of spinal stenosis at the L3-L4 level. 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 CT/Pelvis without IV Contrast IMPRESSION: No hip fracture seen. Spinal stenosis at the L4-L5 level with loss of height of the superior endplate of the L4 vertebra. Tarlov cyst. Findings suggestive of a cyst in the lower pole of the left kidney. Electronically Signed: Bryson Paige MD at 8:55 EDT ,
--- NOTE | 2022-09-03 07:27 | PCM.PN.HOSP ---
Reason for Visit Reason for Visit: Diagnoses Primary central sleep apnea (09/03/22) Other persistent atrial fibrillation (09/03/22) Pain in right leg (09/03/22) Presence of cardiac pacemaker (09/03/22) Subjective Subjective Patient reports that severe pain to the right hip and right lower extremity has lessened since initial ED arrival with pain regimen. He does state that with any attempt for bearing weight he does feel as though he is going to buckle and pain is severe, 10 out of 10, sharp and dull aching. Discussed plan of care with him which included to obtain CT of the right hip to be cautious and a sternal fracture with already pending orthopedic surgery evaluation to which she is amenable. Patient denies fevers, chills, nausea, emesis, abdominal pain, chest pain or dyspnea. Objective Data Objective Data Vital Signs: Vital Signs Temp Pulse Resp BP Pulse Ox O2 Del Method 97.3 F L 69 20 H 154/86 H 95 Room Air 09/03/22 02:53 09/03/22 02:53 09/03/22 02:53 09/03/22 02:53 09/03/22 02:53 09/03/22 03:06 Oxygen Delivery Method Room Air Weight: 190 lb 4.143 oz Body Mass Index (BMI) 27.3 Intake & Output: Intake and Output for Last 24 Hours 09/01/22 09/02/22 09/03/22 23:59 23:59 23:59 Output Total 1200 / 1200 Balance -1200 / -1200 Lab / Micro Data Result Diagrams: 09/03/22 01:10 09/03/22 01:10 Radiography Diagnostic Testing: Radiology Impression Hip/Pelvis X-Ray 09/02/22 23:20 IMPRESSION: 1. No evidence of right hip fracture or dislocation. 2. Intact pelvis. Electronically Signed: Aubrey Franz DO at 23:55 EDT Reading Location ID and State: [facility] / [place] Tel [phone], Service support , Physical Exam Narrative Physical Examination: General: Awake, alert, oriented x 3 and cooperative, laying in the PCU bed, fatigued otherwise no acute distress, does note with any activity attempt or bearing weight there is recurrent right hip pain. Skin: Normal color, normal turgor, no icterus, no cyanosis except for occasional staged ecchymoses especially with recent fall. HEENT: AT/NC, EOMI, PERRLA, MMM. Lungs: Diminished, greater bases, proper effort, no rales, ronchi or wheezing. Heart: Regular rate and rhythm/suspect paced; no gallop, rub audible. Abdomen: Soft, NTTP, ND, normal BS. Extremities: No cyanosis, no clubbing, bilateral lower extremity with ankle mildly pitting edema, has right lower extremity externally rotated, discomfort with palpation or movement. Neurological: Patient awake, alert, oriented as noted, cognitive function intact; pupils equally reactive to light and accommodation, cranial nerves II-XII grossly normal, moving all 4 extremities although limited right lower extremity given pain elicited, strength accordingly moderately globally decreased. Psychiatric: Affect appears fatigued otherwise normal, no acute evidence of depressive or anxiety feelings. Assessment & Plan Assessment/Plan (1) Right leg pain: PLAN: Plan The patient is an 87 y/o M w/ PMHx: Persistent AF, Hx 2nd degree HB s/p pacemaker placement, HTN, HLD, CHRIS, Chronic bradycardia, Former tobacco use who presents to the [facility] ED on 09/03/22 with history of progressively worsening discomfort and pain to his right hip and right lower extremity over the last 3 weeks primarily located between the buttock and the upper thigh with no recent injury normally able to ambulate however following outside activities he unfortunately fell secondary to sudden onset more severe sharp pain to the R hip/leg. #1. Intractable R hip pain, debility with fall: ED evaluation with plain film of the hip with no evidence of a right hip fracture or dislocation with an intact pelvis, admitted to CT, maintained on fall precautions, pending Orthopedic surgery consultation, will request CT R hip to assure no fracture unidentified, continue as needed pain regimen, as needed antiemetics, PT/OT/CM consultations for discharge planning. #2. Hypertension: Continue home regimen including metoprolol, hydrochlorothiazide, PRN hydralazine. #3. Hyperlipidemia: Continue home statin regimen. #4. Persistent AF: We will continue patient home metoprolol and apixaban regimen. #5. History secondary heart block: Status post pacemaker placement. #6. Former tobacco use: Encourage continued tobacco cessation. #7. CHRIS: PAP nightly. #8. DVT prophylaxis: We will continue patient home apixaban regimen. #9. CODE STATUS: DNR-CCA, no intubation. Admission Evaluation Time spent evaluating chart, patient history, patient evaluation, care planning and discussion with specialists: 35 minutes. Charges/Coding Visit Charges Inpatient E&M: 17979 Subs Hosp L2
--- NOTE | 2022-09-03 07:32 | CON.PCM.OR_ITS ---
HPI Consult Data Date of Consult: 09/03/22 HPI Narrative HPI Narrative: EMMANUEL MARIE, is a 87 M who presents after a ground-level fall at home when he was out performing yard work. Patient attempted to step up approximately 6 inches with his right leg as lead foot noted worsening pain in his posterior thigh causing him to fall. He states he broke his fall and denies any new injuries. Patient reports pain in his posterior right thigh/hamstring region from pelvis to Mid thigh. Denies any numbness or tingling. He denies any inciting injury or event. Patient states the pain has been present for approximately 3 weeks now. Denies any prior issues with his hamstring, radicular pain or sciatica. With regard to the fall yesterday, patient was able to walk following the injury. He was helped up by a neighbor. They made a decision to call EMS and was brought to [facility] emergency department. X-rays of the right hip were benign. Patient was admitted for possible placement and therapies. I was consulted for recommendations. [facility] Medical History (Updated 09/03/22 @ 02:[address] Bonilla Babcock, ) Bradycardia Essential (primary) hypertension Former smoker Hyperlipidemia Obstructive sleep apnea Osteoporosis Paroxysmal ventricular tachycardia Premature ventricular contractions 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 Home Medications multivitamin with folic acid 400 mcg tablet 1 tab PO DAILY 01/18/13 [History La st Taken 07/26/18] nitroglycerin 0.4 mg sublingual tablet 0.4 mg sublingual Q5M PRN Chest Pain 01/18/13 [History Last Taken 07/26/18] acetaminophen 500 mg capsule 500 mg PO Q6H PRN Pain 04/10/21 [History Last Taken Unknown] latanoprost 0.005 % eye drops 1 drp ophthalmic (eye) QHS 30 days #2 mL 04/10/21 [History Last Taken Unknown] hydrochlorothiazide 25 mg tablet 25 mg PO QDAY #90 tabs 06/09/22 [Rx Last Taken Unknown] pravastatin 40 mg tablet 40 mg PO QHS #90 tabs 07/08/22 [Rx Last Taken Unknown] apixaban 5 mg tablet (Eliquis) 5 mg PO BID #180 tabs 08/18/22 [Rx Last Taken Unknown] metoprolol succinate 50 mg tablet,extended release 24 hr 50 mg PO QDAY #90 tabs 08/18/22 [Rx Last Taken Unknown] Allergy/AdvReac Type Severity Reaction Status Date / Time No Known Allergies Allergy Verified 04/14/22 11:10 Family History Father , age 77 Cancer larynx and prostate Surgical History (Updated 09/03/22 @ 02:[address] Bonilla Babcock DO) Cardiac pacemaker in situ (01/2013) Social History Smoking Status: Former smoker how long ago did patient quit smokin alcohol intake: current alcohol intake frequency: a few times a week Alcohol type: wine substance use type: does not use caffeine: No ROS ROS Narrative Review of systems obtained, negative unless otherwise noted in HPI. Vital Signs Vital Signs Vital Signs: 09/02/22 22:07 09/02/22 22:18 09/02/22 22:25 Temperature 98.6 F 98.6 F Temperature Source Oral Oral Pulse Rate 78 70 Respiratory Rate 16 15 Respiratory Effort Normal Respiratory Depth Normal Respiratory Pattern Normal Blood Pressure 124/77 H 121/67 H Blood Pressure Mean 92 85 Blood Pressure Source Blood Pressure Position Blood Pressure Location Pulse Ox 97 97 Oxygen Delivery Method Room Air Room Air Room Air 09/03/22 00:47 09/03/22 01:55 09/03/22 02:53 Temperature 98.7 F 97.3 F L Temperature Source Oral Temporal Pulse Rate 87 89 69 Respiratory Rate 16 16 20 H Respiratory Effort Respiratory Depth Respiratory Pattern Blood Pressure 137/73 H 133/83 H 154/86 H Blood Pressure Mean 94 99 108 Blood Pressure Source Monitor Blood Pressure Position Semi-Fowlers Blood Pressure Location Right Arm Pulse Ox 97 97 95 Oxygen Delivery Method Room Air Room Air Room Air 09/03/22 03:06 Temperature Temperature Source Pulse Rate Respiratory Rate Respiratory Effort Normal Non-Labored Respiratory Depth Normal Respiratory Pattern Normal Blood Pressure Blood Pressure Mean Blood Pressure Source Blood Pressure Position Blood Pressure Location Pulse Ox Oxygen Delivery Method Room Air Weight Weight: 190 lb 4.143 oz Body Mass Index (BMI) 27.3 Physical Exam Narrative General -A&Ox3, NAD, appears stated age. Vital signs stable, afebrile. Respiratory -normal work of breathing, no intercostal retractions. CV -pulses regular, brisk capillary refill ?4 limbs. Abdomen-soft, nontender, nondistended. No guarding, rigidity, rebound tenderness. Musculoskeletal/neurologic -full range of motion nontender throughout bilateral upper extremities, left lower extremity with full sensation and strength in all dermatomes and myotomes. No midline cervical tenderness. Right lower extremity-no obvious deformity. No pain with logroll of the right lower extremity. Tenderness to palpation in the hamstring musculature from mid hamstring and proximal to the ischial tuberosity. No palpable defects. Pain reproduced with resisted hip extension and knee flexion. Nontender throughout the right knee femoral shaft, tibial shaft and left foot/ankle. Brisk capillary refill. Sensation intact light touch L3-S1 dermatomes. DF, PF, EHL intact. DP, PT 2+. Pelvis is stable, nontender. Skin is intact without lacerations, abrasions. No ecchymosis noted. Lab / Micro Data Result Diagrams: 09/03/22 01:10 09/03/22 01:10 Radiology Impression Hip/Pelvis X-Ray 09/02/22 23:20 IMPRESSION: 1. No evidence of right hip fracture or dislocation. 2. Intact pelvis. Electronically Signed: Aubrey Franz DO at 23:55 EDT Reading Location ID and State: [address] [place] [address] Tel [phone], Service support , Assessment & Plan Assessment/Plan (1) Right leg pain: PLAN: Suspect acute exacerbation of hamstring strain, possible avulsion. Avulsion is considered less likely given no history of ecchymosis. Patient can weight-bear as tolerated in the right lower extremity. I would mobilize with physical and Occupational Therapy today. Patient may need skilled care if he is unable to care for himself at home. MRI is of low priority at this time as it is unlikely to change our plan. If patient continues to struggle over the coming days, may consider MRI, however patient does have a pacemaker incompatibility must be confirmed. I explained to the patient that hamstring strains/injuries can take upwards of 6 weeks to improve. Patient may follow-up in the office in the coming weeks if pain is not improving. With anticoagulate use, I would recommend Tylenol and consider judicious narcotic use to assist with ambulation. Certainly narcotic use will increase fall risk so risks and benefits must be weighed. Thank for this consultation. I will follow peripherally. Please not hesitate to call if any questions or concerns arise.
[2022-09-03 07:33] LABS: Absolute Lymphocyte Count 1.13 X10^3/uL (0.83-4.51); Absolute Neutrophil Count 7.2 X10^3/uL (2.0-7.7); Basophil# 0.04 X10^3/uL; Basophil% 0.4 % (0-1); Eosinophil# 0.16 X10^3/uL; Eosinophils% 1.7 % (0-5); Hemoglobin 12.5 g/dL (13.0-16.5); Lymphocyte # 1.13 X10^3/ul (0.83-4.51); Lymphocyte % 12.2 % (19-41); Mean Corp Hgb Conc 32.1 g/dL (32-36); Mean Corpuscular Hgb 30.3 pg (27.0-32.0); Mean Corpuscular Volume 94.4 fL (80-94); Mean Platelet Vol. 11.1 fl (6.2-12.0); Monocyte# 0.76 X10^3/uL; Monocyte% 8.2 % (0-10); NRBC Flagged by Analyzer 0 % (0-5); Neutrophil # 7.16 X10^3/uL (2.7-7.7); Neutrophil % 77.2 % (47-70); Platelet Count 121 K/mm3 (150-450); RBC Distribution Width CV 13.5 % (11.6-14.6); RBC Distribution Width SD 46.9 fl (35.1-43.9); Red Blood Count 4.13 M/mm3 (4.6-6.2); White Blood Count 9.3 K/mm3 (4.4-11.0)
[2022-09-03 07:47] LABS: AST(SGOT) 22 U/L (15-37); Alanine Aminotransfer ALT/SGPT 23 U/L (16-61); Albumin, Serum 3.6 g/dL (3.2-5.0); Alkaline Phosphatase 80 U/L (45-117); Anion Gap 4 (5-15); BUN 31 mg/dL (7-18); BUN/Creat Ratio 33.7 RATIO (10-20); Calcium,Total 9.1 mg/dL (8.5-10.1); Chloride 104 mmol/L (98-107); Creatinine, Serum 0.92 mg/dL (0.70-1.30); EST Glomerular Filtration Rate 82 mL/min (>60); Est Glom Filt Rate - Afr Amer 100 mL/min (>60); Estimated Creatinine Clearance 57.31 ml/min; Globulin 3.7 g/dL (2.2-4.2); Glucose 122 mg/dL (74-106); Potassium 3.5 mmol/L (3.5-5.1); Protein, Total 7.3 g/dL (6.4-8.2); Sodium Level 141 mmol/L (136-145)
[2022-09-03] MEDS: Multivitamins,Therapeutic Tablet 1 TABLET PO (09:00)
[2022-09-03] MEDS: hydroCHLOROthiazide 25 MG Tablet PO (09:42)
[2022-09-03] MEDS: APIXABAN 5 MG TABLET PO ×2 (09:42→21:34)
[2022-09-03] MEDS: 0.9% Saline Lock 10 ML Syringe IV (09:43)
[2022-09-03] MEDS: traMADol 50 MG Tablet PO (09:49)
[2022-09-03] MEDS: Acetaminophen 500 MG Tablet PO (09:50)
--- NOTE | 2022-09-03 10:20 | CASEMGMT ---
RN CM Face to Face with patient for initial transition planning/care coordination assessment. RN CM introduced self and role at [facility]. Patient lying in bed, alert and oriented. Patient willing to participate in assessment and is able to answer all questions appropriately. Care providers, pharmacy, and demographics verified. Patient wishes to discharge home, will monitor progress with therapy. Patient states he has no further needs or concerns at this time. CM to follow for discharge planning needs that may arise. PCP: [facility] Specialists: none Preferred Pharmacy: [facility] Insurance: [employer] Prescription Benefit: yes Living Will/HPOA: yes, son Chintan Davis LNOK: son, daughter Living Arrangements: Patient lives with son in a single story home with 2 steps to enter. Patient states he was independent at home. Transportation: self, son DME/HHC: Patient has raised toilet, cane, walker, bipap, and pulse ox at home. Patient denies previous HHC or SNF. Will monitor progress with therapy Disposition Plan: Patient to discharge home, anticipate HHC vs Outpatient therapy pending progress with therapy. Daysi HILL, RN, CM
[2022-09-03] MEDS: Metoprolol(XL)Succ 50 MG Tablet PO (13:00)
--- NOTE | 2022-09-03 14:43 | CASEMGMT ---
ESPERANZA HANDY updated by therapy that emre will need HHC and wheelchair at discharge. ESPERANZA HANDY in to room to discuss needs. Patient states he would like transport wheelchair and prefers [facility]. Patient states he will have family take script to [facility] to see if insurance will cover, if not patient will pay for transport chair. Script received and provided to patient. ESPERANZA HANDY discuss HHC with patient. A list of HHC providers including quality and resource use data and consistent with the patient?s preferred geographical region, medical needs, and insurance network were provided from the [employer] Guide. Patient reviewed list and prefers [facility]. ESPERANZA HANDY called and made referral to [facility]. [facility] is able to accept the patient with planned start of care for Tuesday 09/05. ESPERANZA HANDY updated the patient, patient had no further questions or concerns at this time.
[2022-09-03] MEDS: Pravastatin 40 MG Tablet PO (21:34)
[2022-09-04 02:20] VITALS: BP 122/72; PULSE 67; RESP 17; TEMP 36.7; O2SAT 96
[2022-09-04 06:26] LABS: Absolute Lymphocyte Count 1.37 X10^3/uL (0.83-4.51); Absolute Neutrophil Count 6.1 X10^3/uL (2.0-7.7); Basophil# 0.04 X10^3/uL; Basophil% 0.5 % (0-1); Eosinophil# 0.21 X10^3/uL; Eosinophils% 2.4 % (0-5); Hematocrit 38.4 % (40-54); Hemoglobin 12.5 g/dL (13.0-16.5); Lymphocyte # 1.37 X10^3/ul (0.83-4.51); Lymphocyte % 15.5 % (19-41); Mean Corp Hgb Conc 32.6 g/dL (32-36); Mean Corpuscular Hgb 30.1 pg (27.0-32.0); Mean Corpuscular Volume 92.5 fL (80-94); Monocyte# 1.06 X10^3/uL; NRBC Flagged by Analyzer 0 % (0-5); Neutrophil # 6.13 X10^3/uL (2.7-7.7); Neutrophil % 69.3 % (47-70); Platelet Count 122 K/mm3 (150-450); RBC Distribution Width CV 13.5 % (11.6-14.6); RBC Distribution Width SD 46.2 fl (35.1-43.9); Red Blood Count 4.15 M/mm3 (4.6-6.2); White Blood Count 8.8 K/mm3 (4.4-11.0)
[2022-09-04 06:57] LABS: ALB/GLOB Ratio 0.9 RATIO (0.9-2.4); AST(SGOT) 17 U/L (15-37); Alanine Aminotransfer ALT/SGPT 16 U/L (16-61); Albumin, Serum 3.2 g/dL (3.2-5.0); Alkaline Phosphatase 65 U/L (45-117); Anion Gap 7 (5-15); BUN 26 mg/dL (7-18); Calcium,Total 8.5 mg/dL (8.5-10.1); Chloride 105 mmol/L (98-107); Creatinine, Serum 0.79 mg/dL (0.70-1.30); EST Glomerular Filtration Rate 99 mL/min (>60); Est Glom Filt Rate - Afr Amer 119 mL/min (>60); Estimated Creatinine Clearance 52.72 ml/min; Globulin 3.4 g/dL (2.2-4.2); Glucose 106 mg/dL (74-106); Potassium 3.3 mmol/L (3.5-5.1); Protein, Total 6.6 g/dL (6.4-8.2); Sodium Level 139 mmol/L (136-145)
[2022-09-04 07:45] VITALS: BP 122/74; PULSE 65; RESP 16; TEMP 36.9; O2SAT 98
[2022-09-04 08:21] VITALS: BP 122/74; PULSE 65; RESP 16; TEMP 36.9; O2SAT 98
[2022-09-04] MEDS: APIXABAN 5 MG TABLET PO ×2 (09:27→23:26)
[2022-09-04] MEDS: Multivitamins,Therapeutic Tablet 1 TABLET PO (09:27)
[2022-09-04] MEDS: hydroCHLOROthiazide 25 MG Tablet PO (09:27)
--- NOTE | 2022-09-04 09:53 | PN.HOSP_ITS ---
Reason for Visit Reason for Visit: Diagnoses Primary central sleep apnea (09/03/22) Other persistent atrial fibrillation (09/03/22) Pain in right leg (09/03/22) Presence of cardiac pacemaker (09/03/22) Subjective Subjective Unable to bear weight on right leg which is very distressing to patient, severe pain when trying to stand Objective Data Objective Data Vital Signs: Vital Signs Temp Pulse Resp BP Pulse Ox O2 Del Method 98.5 F 65 16 122/74 H 98 Room Air 09/04/22 08:21 09/04/22 08:21 09/04/22 08:21 09/04/22 08:21 09/04/22 08:21 09/04/22 08:33 Oxygen Delivery Method Room Air Weight: 86.3 kg Body Mass Index (BMI) 27.3 Intake & Output: Intake and Output for Last 24 Hours 09/02/22 09/03/22 09/04/22 23:59 23:59 23:59 Intake Total 480 / 480 Output Total 1200 / 1200 Balance -720 / -720 Lab / Micro Data Result Diagrams: 09/04/22 05:15 09/04/22 05:15 Labs: Laboratory Results - last 24 hr 09/04/22 05:15: WBC 8.8, RBC 4.15 L, Hgb 12.5 L, Hct 38.4 L, MCV 92.5, MCH 30.1, MCHC 32.6, RDW Std Deviation 46.2 H, RDW Coeff of Jeremiah 13.5, Plt Count 122 L, MPV 11.0, Immature Gran % (Auto) 0.300, Neut % (Auto) 69.3, Lymph % (Auto) 15.5 L, [place] % (Auto) 12.0 H, Eos % (Auto) 2.4, Baso % (Auto) 0.5, Absolute Neuts (auto) 6.1, Absolute Lymphs (auto) 1.37, Nucleated RBC % 0 09/04/22 05:15: Sodium 139, Potassium 3.3 L, Chloride 105, Carbon Dioxide 27.0, Anion Gap 7, BUN 26 H, Creatinine 0.79, Estim Creat Clear Calc 52.72, Est GFR (MDRD) Af Amer 119, Est GFR (MDRD) Non-Af 99, BUN/Creatinine Ratio 33.0 H, Glucose 106, Calcium 8.5, Total Bilirubin 1.50 H, AST 17, ALT 16, Alkaline Phosphatase 65, Total Protein 6.6, Albumin 3.2, Globulin 3.4, Albumin/Globulin Ratio 0.9 Radiography Diagnostic Testing: Radiology Impression Pelvis CT 09/03/22 07:25 IMPRESSION: No hip fracture seen. Spinal stenosis at the L4-L5 level with loss of height of the superior endplate of the L4 vertebra. Tarlov cyst. Findings suggestive of a cyst in the lower pole of the left kidney. Electronically Signed: Bryson Paige MD at 8:55 EDT , ADDENDUM: 09/03/22 1437 IMPRESSION: undefined Physical Exam Narrative General: Alert, oriented, no apparent distress HEENT: Atraumatic, normocephalic Eyes: Anicteric, normal conjunctiva, extraocular movements grossly intact Neck: Supple Respiratory: Clear to auscultation bilaterally, normal respiratory effort Cardiovascular: Regular rate and rhythm GI: Soft, nontender, nondistended Extremities: No edema Musculoskeletal: Moving all extremities, strength equal in bilateral lower extremities while sitting down, pain in right lower extremity 1 extending right leg and lifting causing pain in left thigh, no other maneuvers elicited the same pain Neuro: No overt focal neurological deficits Skin: No rashes appreciated Psych: Cooperative Assessment & Plan Assessment/Plan (1) Right leg pain: PLAN: Plan #Right hip/leg pain after a fall at home -X-rays benign -CT pelvis with prominent soft tissue density with edema and origin of the left hamstring muscle -Ortho consulted and suspect acute exacerbation of hamstring strain versus possible avulsion -Patient unable to bear weight on right leg today and is having significant pain, due to not getting better/if anything worsening will obtain MRI for further evaluation, follows with Dr. Michaud with cardiology, pacemaker is a [employer] Advantio [id number] per notes -PT/OT -Will need placement -We will need to follow-up with Ortho in the office #Hypertension: Continue home regimen including metoprolol, hydrochlorothiazide, PRN hydralazine. #Hyperlipidemia: Continue home statin regimen. #Persistent AF: We will continue patient home metoprolol and apixaban regimen. 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 #CHRIS: PAP nightly. #DVT prophylaxis: We will continue patient home apixaban regimen. Charges/Coding Visit Charges Inpatient E&M: 37841 Subs Hosp L2
[2022-09-04] MEDS: Potassium Chloride Oral Tablet 20 MEQ 40 MEQ PO (10:38)
--- NOTE | 2022-09-04 11:47 | CASEMGMT ---
Patient is now requesting to go to a correction facility. Patient will likely not get a qualifying stay in order for fpc to be covered. KENYON spoke with physician and RN CM both of which do not feel there is a medical reason to keep patient in the hospital. Per therapy patient mentioned he is going to [facility]. SW called [facility] and their room and board is $400 per day. They could bill his part B for his therapy. KENYON met with patient. Introduced self and role at [facility]. SW explained this information to patient. Originally patient thought he came in Thursday night. SW pulled up patient's chart on the computer in the room and the ambulance report indicated they picked up patient Thursday night late. KENYON told patient SW heard he was asking about [facility] so SW called [facility] and their private pay flor is $400 per day. Patient then asked to talk with the doctor as he feels there should be medical reasons for him to stay. KENYON notified physician. Saskia BEAVERS
[2022-09-04 12:11] VITALS: BP 117/65; PULSE 68; RESP 14; TEMP 36.2; O2SAT 97
[2022-09-04 12:13] VITALS: BP 117/74; PULSE 68
[2022-09-04] MEDS: Metoprolol(XL)Succ 50 MG Tablet PO (12:13)
--- NOTE | 2022-09-04 14:43 | CASEMGMT ---
SW spoke with patient after physician spoke with patient. Patient is requesting TCU. SW offered a list and patient declined unless TCU cannot take him. SW made a referral to [facility]. Saskia BEAVERS
[2022-09-04 18:10] VITALS: BP 116/65; PULSE 65; RESP 16; TEMP 36.4; O2SAT 98
[2022-09-04] MEDS: Pravastatin 40 MG Tablet PO (23:26)
[2022-09-04] MEDS: Latanoprost 0.005% 1 Bottle 1 DRP EACH EYE (23:27)
[2022-09-05 00:10] VITALS: BP 125/68; PULSE 65; RESP 17; TEMP 37.1; O2SAT 98
[2022-09-05] MEDS: Acetaminophen 500 MG Tablet PO ×2 (05:00→21:04)
[2022-09-05 06:04] LABS: Absolute Lymphocyte Count 1.44 X10^3/uL (0.83-4.51); Absolute Neutrophil Count 6.6 X10^3/uL (2.0-7.7); Basophil# 0.03 X10^3/uL; Basophil% 0.3 % (0-1); Eosinophils% 1.1 % (0-5); Hematocrit 38.6 % (40-54); Hemoglobin 12.7 g/dL (13.0-16.5); Lymphocyte # 1.44 X10^3/ul (0.83-4.51); Lymphocyte % 15.2 % (19-41); Mean Corp Hgb Conc 32.9 g/dL (32-36); Mean Corpuscular Hgb 30.2 pg (27.0-32.0); Mean Corpuscular Volume 91.9 fL (80-94); Mean Platelet Vol. 10.4 fl (6.2-12.0); Monocyte# 1.25 X10^3/uL; Monocyte% 13.2 % (0-10); NRBC Flagged by Analyzer 0 % (0-5); Neutrophil # 6.64 X10^3/uL (2.7-7.7); Neutrophil % 69.8 % (47-70); Platelet Count 130 K/mm3 (150-450); RBC Distribution Width CV 13.4 % (11.6-14.6); RBC Distribution Width SD 45.2 fl (35.1-43.9); White Blood Count 9.5 K/mm3 (4.4-11.0)
[2022-09-05 06:20] VITALS: BP 130/70; PULSE 70; RESP 17; TEMP 36.6; O2SAT 98
[2022-09-05 06:39] LABS: ALB/GLOB Ratio 0.8 RATIO (0.9-2.4); AST(SGOT) 22 U/L (15-37); Alanine Aminotransfer ALT/SGPT 22 U/L (16-61); Albumin, Serum 3.2 g/dL (3.2-5.0); Alkaline Phosphatase 69 U/L (45-117); Anion Gap 6 (5-15); BUN 25 mg/dL (7-18); BUN/Creat Ratio 29.3 RATIO (10-20); Chloride 104 mmol/L (98-107); Creatinine, Serum 0.85 mg/dL (0.70-1.30); EST Glomerular Filtration Rate 90 mL/min (>60); Est Glom Filt Rate - Afr Amer 109 mL/min (>60); Estimated Creatinine Clearance 62.03 ml/min; Globulin 3.8 g/dL (2.2-4.2); Glucose 119 mg/dL (74-106); Potassium 3.7 mmol/L (3.5-5.1); Sodium Level 138 mmol/L (136-145)
--- NOTE | 2022-09-05 08:32 | PN.HOSP_ITS ---
Reason for Visit Reason for Visit: Diagnoses Primary central sleep apnea (09/03/22) Other persistent atrial fibrillation (09/03/22) Pain in right leg (09/03/22) Presence of cardiac pacemaker (09/03/22) Subjective Subjective Continues to have inability to walk and is unable to walk or climb stairs and requires significant/max assist for sitting down and standing up from chair with arms and moving to and from bed to chair Objective Data Objective Data Vital Signs: Vital Signs Temp Pulse Resp BP Pulse Ox O2 Del Method 97.8 F 70 17 130/70 H 98 Room Air 09/05/22 06:20 09/05/22 06:20 09/05/22 06:20 09/05/22 06:20 09/05/22 06:20 09/05/22 07:16 Oxygen Delivery Method Room Air Weight: 86.3 kg Body Mass Index (BMI) 27.3 Intake & Output: Intake and Output for Last 24 Hours 09/03/22 09/04/22 09/05/22 23:59 23:59 23:59 Intake Total 480 / 480 1300 / 1300 Output Total 1200 / 1200 775 / 975 200 / 200 Balance -720 / -720 525 / 325 -200 / -200 Lab / Micro Data Result Diagrams: 09/05/22 05:11 09/05/22 05:11 Labs: Laboratory Results - last 24 hr 09/05/22 05:11: WBC 9.5, RBC 4.20 L, Hgb 12.7 L, Hct 38.6 L, MCV 91.9, MCH 30.2, MCHC 32.9, RDW Std Deviation 45.2 H, RDW Coeff of Jeremiah 13.4, Plt Count 130 L, MPV 10.4, Immature Gran % (Auto) 0.400, Neut % (Auto) 69.8, Lymph % (Auto) 15.2 L, [place] % (Auto) 13.2 H, Eos % (Auto) 1.1, Baso % (Auto) 0.3, Absolute Neuts (auto) 6.6, Absolute Lymphs (auto) 1.44, Nucleated RBC % 0 09/05/22 05:11: Sodium 138, Potassium 3.7, Chloride 104, Carbon Dioxide 28.0, Anion Gap 6, BUN 25 H, Creatinine 0.85, Estim Creat Clear Calc 62.03, Est GFR (MDRD) Af Amer 109, Est GFR (MDRD) Non-Af 90, BUN/Creatinine Ratio 29.3 H, Glucose 119 H, Calcium 9.0, Total Bilirubin 1.90 H, AST 22, ALT 22, Alkaline Phosphatase 69, Total Protein 7.0, Albumin 3.2, Globulin 3.8, Albumin/Globulin Ratio 0.8 L Physical Exam Narrative General: Alert, oriented, no apparent distress HEENT: Atraumatic, normocephalic Eyes: Anicteric, normal conjunctiva, extraocular movements grossly intact Neck: Supple Respiratory: Clear to auscultation bilaterally, normal respiratory effort Cardiovascular: Regular rate and rhythm GI: Soft, nontender, nondistended Extremities: No edema Musculoskeletal: Moving all extremities well sitting in bed, unable to ambulate Neuro: No overt focal neurological deficits Skin: No rashes appreciated Psych: Cooperative Assessment & Plan Assessment/Plan (1) Right leg pain: PLAN: Plan #Right hip/leg pain after a fall at home w/ concern for hamstring tear -X-rays benign -CT pelvis with prominent soft tissue density with edema and origin of the left hamstring muscle but reviewing films and patient's symptoms believe that this is for the right hamstring -Ortho consulted and suspect acute exacerbation of hamstring strain versus possi ble avulsion -Patient unable to bear weight on right leg today and is having significant pain, due to not getting better/if anything worsening will obtain MRI for further evaluation, follows with Dr. Michaud with cardiology, pacemaker is a [employer] Advantio [id number] per notes -PT/OT -Will need placement -We will need to follow-up with Ortho in the office -09/05: Given patient's complete inability to bear weight on leg yesterday that planned on MRI however is verify that this in fact is not compatible. It will be important for pain control and physical therapy with close Ortho follow-up #Hyperbilirubinemia/thrombocytopenia -Increasing bilirubin and low platelets -No history of liver dysfunction/work-up noted -Given his fall and need for further anticoagulation as well as hamstring tear w ith unclear etiology of thrombocytopenia feel it is important to get right upper quadrant further assess due to his bleeding/fall risk #Hypertension: Continue home regimen including metoprolol, hydrochlorothiazide, PRN hydralazine. #Hyperlipidemia: Continue home statin regimen. #Persistent AF: We will continue patient home metoprolol and apixaban regimen. 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 #CHRIS: PAP nightly. #DVT prophylaxis: We will continue patient home apixaban regimen. Charges/Coding Visit Charges Inpatient E&M: 35291 Subs Hosp L2
[2022-09-05] MEDS: Multivitamins,Therapeutic Tablet 1 TABLET PO (08:57)
[2022-09-05] MEDS: hydroCHLOROthiazide 25 MG Tablet PO (08:58)
[2022-09-05] MEDS: APIXABAN 5 MG TABLET PO ×2 (08:59→20:59)
--- NOTE | 2022-09-05 09:37 | CASEMGMT ---
KENYON notified patient that [facility] can take him when he is medically ready. Plan: [facility] under skilled level of care. Saskia BEAVERS
[2022-09-05 12:20] VITALS: BP 122/65; PULSE 69; RESP 14; TEMP 36.9; O2SAT 97
[2022-09-05 12:28] VITALS: BP 122/65; PULSE 69
[2022-09-05] MEDS: Metoprolol(XL)Succ 50 MG Tablet PO (12:28)
--- NOTE | 2022-09-05 16:08 | US_ITS ---
STUDY: ABDOMINAL ULTRASOUND - RIGHT UPPER QUADRANT REASON FOR VISIT: Male, 87 years old elevated bili, thrombocytopenia TECHNIQUE: Ultrasound evaluation of the right upper quadrant was performed with real-time and static bloom-scale imaging. TECHNICAL QUALITY: Adequate. COMPARISON: None. FINDINGS: Liver: The liver measures 19.3 cm. There is normal echogenicity of the liver. The bile ducts are within normal limits. There is hepatic color flow. The direction of portal flow is hepatopetal. There is no demonstrated mass lesion. Gallbladder: Normal distended gallbladder. The gallbladder wall measures 2 mm. There is a negative sonographic Macias''s sign. There is no pericholecystic fluid. There are no gallstones. Common Bile Duct (C.B.D.): The common bile duct measures 3 mm. Pancreas: Limited visualization of the pancreas without definitive abnormality. CT recommended for more definitive evaluation if indicated Right Kidney: Normal size of the right kidney. The right kidney measures 11.8 x 5.8 x 6 cm. Normal renal cortex. The right cortex measures 1.6 cm. There is a cyst measuring 1.2 x 1.2 x 1 cm. There is no right hydronephrosis. US/Liver IMPRESSION: Nonspecific enlargement of the liver.. Nonvisualization of pancreas which may be further assessed with CAT scan if clinically indicated Small right renal cyst Electronically Signed: Kranthi Mcpherson MD at 20:48 EDT ,
[2022-09-05 17:20] VITALS: BP 114/73; PULSE 70; RESP 14; TEMP 36.9; O2SAT 97
[2022-09-05] MEDS: Pravastatin 40 MG Tablet PO (20:59)
[2022-09-05] MEDS: Latanoprost 0.005% 1 Bottle 1 DRP EACH EYE (21:00)
[2022-09-05 21:05] VITALS: BP 117/58; PULSE 67; RESP 15; TEMP 37; O2SAT 95
[2022-09-06 03:05] VITALS: BP 118/80; PULSE 67; RESP 14; TEMP 37; O2SAT 99
[2022-09-06 06:40] LABS: Absolute Neutrophil Count 5.7 X10^3/uL (2.0-7.7); Basophil# 0.03 X10^3/uL; Basophil% 0.3 % (0-1); Eosinophil# 0.11 X10^3/uL; Eosinophils% 1.3 % (0-5); Hematocrit 36.2 % (40-54); Lymphocyte % 17.2 % (19-41); Mean Corp Hgb Conc 33.1 g/dL (32-36); Mean Corpuscular Hgb 30.6 pg (27.0-32.0); Mean Corpuscular Volume 92.3 fL (80-94); Mean Platelet Vol. 10.7 fl (6.2-12.0); Monocyte# 1.32 X10^3/uL; Monocyte% 15.2 % (0-10); NRBC Flagged by Analyzer 0 % (0-5); Neutrophil # 5.72 X10^3/uL (2.7-7.7); Neutrophil % 65.8 % (47-70); Platelet Count 127 K/mm3 (150-450); RBC Distribution Width CV 13.4 % (11.6-14.6); Red Blood Count 3.92 M/mm3 (4.6-6.2); White Blood Count 8.7 K/mm3 (4.4-11.0)
[2022-09-06 07:14] LABS: ALB/GLOB Ratio 0.8 RATIO (0.9-2.4); AST(SGOT) 19 U/L (15-37); Alanine Aminotransfer ALT/SGPT 19 U/L (16-61); Alkaline Phosphatase 69 U/L (45-117); Anion Gap 6 (5-15); BUN 28 mg/dL (7-18); BUN/Creat Ratio 36.3 RATIO (10-20); Bilirubin, Direct 0.49 mg/dL (0.00-0.30); Calcium,Total 8.5 mg/dL (8.5-10.1); Chloride 105 mmol/L (98-107); Creatinine, Serum 0.77 mg/dL (0.70-1.30); EST Glomerular Filtration Rate 101 mL/min (>60); Est Glom Filt Rate - Afr Amer 122 mL/min (>60); Estimated Creatinine Clearance 52.72 ml/min; Globulin 3.7 g/dL (2.2-4.2); Glucose 105 mg/dL (74-106); Potassium 3.2 mmol/L (3.5-5.1); Protein, Total 6.7 g/dL (6.4-8.2); Sodium Level 142 mmol/L (136-145)
[2022-09-06] MEDS: Acetaminophen 500 MG Tablet PO (07:22)
[2022-09-06 08:50] VITALS: BP 126/71; PULSE 70; RESP 16; TEMP 36.9; O2SAT 99
[2022-09-06] MEDS: Potassium Chloride Oral Tablet 20 MEQ 40 MEQ PO (08:55)
[2022-09-06] MEDS: Multivitamins,Therapeutic Tablet 1 TABLET PO (08:56)
[2022-09-06] MEDS: hydroCHLOROthiazide 25 MG Tablet PO (08:56)
[2022-09-06] MEDS: APIXABAN 5 MG TABLET PO (08:56)
--- NOTE | 2022-09-06 09:33 | PCM.TXEXTCAR ---
Diet Diet Order/Speech Therapy: 09/03/22 01:12 Diet: Regular - General Food consistency:: Regular Liquid Consistency:: Regular/Thin Diet Comments: KEEP NPO till 20:00 after liver US Routine Orders/Code Status Suppository Type: Dulcolax 10mg Suppository Frequency: Daily PRN Code Status: DNC-A Therapies Physical Therapy: Eval and Treat Problem/Diagnosis (1) Right leg pain: Status: Acute Code(s): M79.604 - Pain in right leg Plan #Right hip/leg pain after a fall at home w/ concern for hamstring tear -X-rays benign -CT pelvis with prominent soft tissue density with edema and origin of the left hamstring muscle but reviewing films and patient's symptoms believe that this is for the right hamstring -Ortho consulted and suspect acute exacerbation of hamstring strain versus possible avulsion -Patient unable to bear weight on right leg today and is having significant pain, due to not getting better/if anything worsening will obtain MRI for further evaluation, follows with Dr. Michaud with cardiology, pacemaker is a [employer] Advantio [id number] per notes -PT/OT -Will need placement -We will need to follow-up with Ortho in the office -09/05: Given patient's complete inability to bear weight on leg yesterday, planned on MRI however it was verified that this in fact is not compatible. It will be important for pain control and physical therapy with close Ortho follow-up. Pt for TCU #Hyperbilirubinemia/thrombocytopenia -Increasing bilirubin and low platelets -No history of liver dysfunction/work-up noted 09/06: Liver US w/ nonspecific liver enlargement with no gallbladder pathology or other pathology noted, can follow-up with GI in an outpatient basis for further work-up and monitoring if desired #Central sleep apnea: Follows with pulm, will need NIPPV at bedtime which he uses at home #Hypertension #Persistent AF: metoprolol and apixaban #History secondary heart block: Status post pacemaker placement. #Former tobacco use Allergies/Procedures Done in Hospital Allergies No Known Allergies Allergy (Verified 04/14/22 11:10) Type of Care/Length of Stay Estimated LOS: Convalescent Care Less Than 30 days Type of Care Needed: Skilled Rehab Potential: Fair Prognosis: Fair Additional Orders/Day of Discharge Day of Discharge: 09/06/22 Discharge Plan Admission Admit Date/Time: 09/03/22 04:55 Primary Reason for Your Visit: R thigh pain Attending Provider: Pili Villagomez Primary Care Provider: Manuela Ribera Consulting Providers: Chang Meier ; David Frederick ; Luann Bello Instructions Patient Instructions: ED Fall Prevention Additional Instructions / Restrictions: DISCHARGE INSTRUCTIONS PLEASE READ *Please take this with you to your next doctors appointment* -Please follow-up with orthopedics if your pain is not improving or if it is worsening. You call their office to schedule this appointment if applicable -You are found to have a cyst on your left kidney, this may need further monitoring or work-up but this can be discussed with your primary care physician and on an outpatient basis if indicated -He may benefit from following up with gastroenterology due to a nonspecific large meant of your liver. If desired you can follow-up with Dr. Ling with GI in his office upon discharge. Please call his office to schedule an establish care appointment (ph. [phone]) -Please call your primary care provider's office upon discharge to schedule a hospital follow up within 1 week. -For any concerning signs or symptoms please call 911 or proceed to the nearest emergency department Discharge Orders/Prescriptions Prescriptions: Continued latanoprost 0.005 % drops 1 drp OPHTHALMIC QHS 30 Days Qty: 2 Rx Instructions: both eyes acetaminophen 500 mg capsule 500 mg PO Q6H PRN (Reason: Pain) nitroglycerin 0.4 MG tablet 0.4 mg SUBLINGUAL Q5M PRN (Reason: Chest Pain) Label Comments: RELIEF CHEST PAIN multivitamin with folic acid 1 TABLET tablet 1 tab PO DAILY Label Comments: VITAMENS hydrochlorothiazide 25 mg tablet 25 mg PO QDAY Qty: 90 3RF pravastatin 40 mg tablet 40 mg PO QHS Qty: 90 3RF metoprolol succinate 50 mg tablet extended release 24 hr 50 mg PO QDAY Qty: 90 3RF Rx Instructions: at noon Eliquis 5 mg tablet 5 mg PO BID Qty: 180 3RF Referrals / Follow Up: Manuela Ribera DO [Primary Care Provider] - Within 1 Week Chang Meier DO [Med Staff - Active Staff] - See Referral Note (Please follow-up with the orthopedic doctor if your pain is not improving. Please call their office to schedule ) Disposition Disposition (needs filled in before D/C Order can be placed): Long Term Facility
--- NOTE | 2022-09-06 09:39 | PCM.DC.SUM ---
Providers Date of Admission: 09/03/22 Date of Discharge: 09/06/22 Primary Care Physician: Manuela Ribera, Consultations 09/03/22 01:33 Consult: Orthopedics Routine Consulting Provider: Chang Meier Reason for Consult: Evaluation for torn hamstring muscle, cannot walk EMERGENT Consult: No MD Notified: Yes Date Notified: 09/03/22 Time Notified: 06:30 Method of Notification: phone Reason For Visit: RIGHT HIP PAIN Diagnosis Discharge Diagnosis (1) Right leg pain: Status: Acute Code(s): M79.604 - Pain in right leg Plan #Right hip/leg pain after a fall at home w/ concern for hamstring tear -X-rays benign -CT pelvis with prominent soft tissue density with edema and origin of the left hamstring muscle but reviewing films and patient's symptoms believe that this is for the right hamstring -Ortho consulted and suspect acute exacerbation of hamstring strain versus possible avulsion -Patient unable to bear weight on right leg today and is having significant pain, due to not getting better/if anything worsening will obtain MRI for further evaluation, follows with Dr. Michaud with cardiology, pacemaker is a [employer] Advantio [id number] per notes -PT/OT -Will need placement -We will need to follow-up with Ortho in the office -09/05: Given patient's complete inability to bear weight on leg yesterday, planned on MRI however it was verified that this in fact is not compatible. It will be important for pain control and physical therapy with close Ortho follow-up. Pt for TCU #Hyperbilirubinemia/thrombocytopenia -Increasing bilirubin and low platelets -No history of liver dysfunction/work-up noted 09/06: Liver US w/ nonspecific liver enlargement with no gallbladder pathology or other pathology noted, can follow-up with GI in an outpatient basis for further work-up and monitoring if desired #Central sleep apnea: Follows with pulm, will need NIPPV at bedtime which he uses at home #Hypertension #Persistent AF: metoprolol and apixaban #History secondary heart block: Status post pacemaker placement. #Former tobacco use Medications at Discharge Home Medications multivitamin with folic acid 400 mcg tablet 1 tab PO DAILY 01/18/13 nitroglycerin 0.4 mg sublingual tablet 0.4 mg sublingual Q5M PRN Chest Pain 10/15/13 acetaminophen 500 mg capsule 500 mg PO Q6H PRN Pain 04/10/21 latanoprost 0.005 % eye drops 1 drp ophthalmic (eye) QHS 30 days #2 mL 04/10/21 hydrochlorothiazide 25 mg tablet 25 mg PO QDAY #90 tabs 06/09/22 pravastatin 40 mg tablet 40 mg PO QHS #90 tabs 07/08/22 apixaban 5 mg tablet (Eliquis) 5 mg PO BID #180 tabs 08/18/22 metoprolol succinate 50 mg tablet,extended release 24 hr 50 mg PO QDAY #90 tabs 08/18/22 Hospital Course Summary of Care Provided Minutes Spent on Discharge: 36 Hospital Course: 87-year-old male history of persistent atrial fibrillation, cardiac pacemaker, hypertension, central sleep apnea presented to the [facility] ED 09/03/2022 with severe right hamstring pain. Pain worsened after stepping up on his right leg and stops with fall. Pelvic x-ray without fracture, PT OT and orthopedic surgery consulted. Patient had significant difficulty bearing weight and CT obtained which showed prominent soft tissue density with edema and origin of the left hamstring muscle but reviewing films and patient's symptoms believe that this is for the right hamstring which is consistent with history and exam. Ortho also suspected hamstring strain or involvement and recommended mobilize and weightbearing as tolerated with PT and using Tylenol for pain control and avoiding opioids if possible as he remains on anticoagulation and opioids would increase risk of falls. Initially MRI not recommended as it was unlikely to change plan with consideration in the future and follow-up in the office if needed. Given patient's persistent complaints had planned on obtaining MRI prior to TCU however patient's pacemaker is not MRI compatible. Prior to discharge did have noted slight elevated bili and low platelets so liver ultrasound obtained which showed nonspecific hepatic enlargement. Given labs stable on day of discharge feel this can be followed up on an outpatient basis. On day of discharge still continues to report the pain and inability to bear weight on his leg with no other acute complaints. Discharge instructions as follows: -Please follow-up with orthopedics if your pain is not improving or if it is worsening.? You call their office to schedule this appointment if applicable -You are found to have a cyst on your left kidney, this may need further monitoring or work-up but this can be discussed with your primary care physician and on an outpatient basis if indicated -He may benefit from following up with gastroenterology due to a nonspecific large meant of your liver.? If desired you can follow-up with Dr. Ling with GI in his office upon discharge.? Please call his office to schedule an establish care appointment (ph. [phone]) -Please call your primary care provider's office upon discharge to schedule a hospital follow up within 1 week. -For any concerning signs or symptoms please call 911 or proceed to the nearest emergency department Physical Exam Narrative General: Alert, oriented, no apparent distress HEENT: Atraumatic, normocephalic Eyes: Anicteric, normal conjunctiva, extraocular movements grossly intact Neck: Supple Respiratory: Clear to auscultation bilaterally, normal respiratory effort Cardiovascular: Regular rate and rhythm GI: Soft, nontender, nondistended Extremities: No edema Musculoskeletal: Moving all extremities while sitting in bed, unable to ambulate Neuro: No overt focal neurological deficits Skin: No rashes appreciated Psych: Cooperative Weight / BMI Weight Weight: 86.3 kg Body Mass Index (BMI) 27.3 ABG / Lab / Microbiology Data Result Diagrams: 09/06/22 05:03 09/06/22 05:03 Laboratory: Laboratory Results - last 24 hr 09/06/22 05:03: WBC 8.7, RBC 3.92 L, Hgb 12.0 L, Hct 36.2 L, MCV 92.3, MCH 30.6, MCHC 33.1, RDW Std Deviation 45.0 H, RDW Coeff of Jeremiah 13.4, Plt Count 127 L, MPV 10.7, Immature Gran % (Auto) 0.200, Neut % (Auto) 65.8, Lymph % (Auto) 17.2 L, Roseau % (Auto) 15.2 H, Eos % (Auto) 1.3, Baso % (Auto) 0.3, Absolute Neuts (auto) 5.7, Absolute Lymphs (auto) 1.50, Nucleated RBC % 0 09/06/22 05:03: Sodium 142, Potassium 3.2 L, Chloride 105, Carbon Dioxide 31.0, Anion Gap 6, BUN 28 H, Creatinine 0.77, Estim Creat Clear Calc 52.72, Est GFR (MDRD) Af Amer 122, Est GFR (MDRD) Non-Af 101, BUN/Creatinine Ratio 36.3 H, Glucose 105, Calcium 8.5, Total Bilirubin 1.80 H, Direct Bilirubin 0.49 H, AST 19, ALT 19, Alkaline Phosphatase 69, Total Protein 6.7, Albumin 3.0 L, Globulin 3.7, Albumin/Globulin Ratio 0.8 L Radiography Diagnostic Testing: Radiology Impression Liver Ultrasound 09/05/22 16:08 IMPRESSION: Nonspecific enlargement of the liver.. Nonvisualization of pancreas which may be further assessed with CAT scan if clinically indicated Small right renal cyst Electronically Signed: Kranthi Mcpherson MD at 20:48 EDT Reading Location ID and State: [facility] / [place] , Service support , Meaningful Use Info Meaningful Use Diagnoses (Choose all that apply): None applicable Discharge Plan Admission Admit Date/Time: 09/03/22 04:55 Primary Reason for Your Visit: R thigh pain Attending Provider: Pili Villagomez Primary Care Provider: Manuela Ribera Consulting Providers: Chang Meier ; David Frederick ; Luann Bello Instructions Patient Instructions: ED Fall Prevention Additional Instructions / Restrictions: DISCHARGE INSTRUCTIONS PLEASE READ *Please take this with you to your next doctors appointment* -Please follow-up with orthopedics if your pain is not improving or if it is worsening. You call their office to schedule this appointment if applicable -You are found to have a cyst on your left kidney, this may need further monitoring or work-up but this can be discussed with your primary care physician and on an outpatient basis if indicated -He may benefit from following up with gastroenterology due to a nonspecific large meant of your liver. If desired you can follow-up with Dr. Ling with GI in his office upon discharge. Please call his office to schedule an establish care appointment (ph. [phone]) -Please call your primary care provider's office upon discharge to schedule a hospital follow up within 1 week. -For any concerning signs or symptoms please call 911 or proceed to the nearest emergency department Discharge Orders/Prescriptions Prescriptions: Continued latanoprost 0.005 % drops 1 drp OPHTHALMIC QHS 30 Days Qty: 2 Rx Instructions: both eyes acetaminophen 500 mg capsule 500 mg PO Q6H PRN (Reason: Pain) nitroglycerin 0.4 MG tablet 0.4 mg SUBLINGUAL Q5M PRN (Reason: Chest Pain) Label Comments: RELIEF CHEST PAIN multivitamin with folic acid 1 TABLET tablet 1 tab PO DAILY Label Comments: VITAMENS hydrochlorothiazide 25 mg tablet 25 mg PO QDAY Qty: 90 3RF pravastatin 40 mg tablet 40 mg PO QHS Qty: 90 3RF metoprolol succinate 50 mg tablet extended release 24 hr 50 mg PO QDAY Qty: 90 3RF Rx Instructions: at noon Eliquis 5 mg tablet 5 mg PO BID Qty: 180 3RF Referrals / Follow Up: Manuela Ribera DO [Primary Care Provider] - Within 1 Week Chang Meier DO [Med Staff - Active Staff] - See Referral Note (Please follow-up with the orthopedic doctor if your pain is not improving. Please call their office to schedule ) Disposition Disposition (needs filled in before D/C Order can be placed): Intermediate Facility Charges/Coding Visit Charges Inpatient E&M: 29106 Disch Hosp >30min
[2022-09-06 12:06] VITALS: PULSE 67
[2022-09-06] MEDS: Metoprolol(XL)Succ 50 MG Tablet PO (12:06)
[2022-09-06 12:07] VITALS: BP 131/67; PULSE 67; RESP 16; TEMP 36.8; O2SAT 98
== END 2022-09-06 12:50 | disposition skilled nursing facility (03) | DRG 537 ==
LOC: ED 09-03 01:45 → PCU 09-03 04:57
PROVIDERS: Family Medicine; Admitting Provider Hospitalist; Emergency Provider Emergency Medicine; PCP Family Medicine; Visit Provider Internal Medicine
DX: S76.311A Strain of muscle, fascia and tendon of the posterior muscle group at thigh level, right thigh, initial encounter (principal); I48.19 Other persistent atrial fibrillation; D69.6 Thrombocytopenia, unspecified; E78.5 Hyperlipidemia, unspecified; G47.31 Primary central sleep apnea; I44.1 Atrioventricular block, second degree; E80.7 Disorder of bilirubin metabolism, unspecified; I10 Essential (primary) hypertension; W18.39XA Other fall on same level, initial encounter; M25.551 Pain in right hip; R26.2 Difficulty in walking, not elsewhere classified; N28.1 Cyst of kidney, acquired; R53.81 Other malaise; Z66 Do not resuscitate; Z95.0 Presence of cardiac pacemaker; Z79.01 Long term (current) use of anticoagulants; Z79.899 Other long term (current) drug therapy; Z87.891 Personal history of nicotine dependence
CPT/HCPCS: 36415; 72192; 73502; 76705; 80053; 82248; 85025; 87811; 97110; 97162; 97166; 97530; 97535; 99285; A4216

== ENCOUNTER 2022-09-06 12:40 | Inpatient (IN) | payer MEDICARE, OTHER, SELFPAY ==
[2022-09-06 13:08] VITALS: BP 122/66; PULSE 70; RESP 18; TEMP 36.7; O2SAT 96; BMI 31.7
[2022-09-06 15:00] VITALS: PULSE 70; RESP 18; O2SAT 96
--- NOTE | 2022-09-06 17:26 | NURSING ---
pt wants eliquis at [facility] since he took it at 10am today. will start new time schedule at 6am tomorrow.
--- NOTE | 2022-09-06 17:46 | PCM.HP.STD ---
HPI - General General Date of Admission: 09/06/22 Date of Service: 09/07/22 Chief Complaint: Here for rehabilitation. HPI Narrative 09/03/2022 EMMANUEL MARIE, is a 87 Male who presents to [facility] Emergency Department with fall. Right hip, right leg pain x 2-3 weeks, between buttock, upper thigh. No obvious injury. Outside, watering plants, severe right leg pain, fell into bushes. No head injury, No loss of consciousness. Unable to get up, unable to bear weight right leg. X-ray right hip, pelvis negative. 09/03/2022 Admit to Hospital. Tylenol, Tramadol, PT/OT, Ortho consult for right hamstring pain. 09/03/2022 Severe right hip, right lower extremity pain improved. PT/OT for SNF. CT right hip showed possible right hamstring tear, also L4-L5 spinal stenosis. 09/03/2022 Dr. Meier recommended PT/OT, consider MRI for right hamstring strain. 09/04/2022 Unable to bear weight right leg, severe pain when trying to stand. PT/OT for SNF. 09/05/2022 MRI unable secondary to pacemaker. Liver imaging for hyperbilirubinemia, thrombocytopenia. 09/06/2022 Liver ultrasound showed nonspecific liver enlargement. He has central sleep apnea, needs NIPPV at bedtime. 09/06/2022 Admit to TCU with debility, here for rehabilitation, strengthening, prior to discharge home alone. [facility] Medical History Bradycardia Essential (primary) hypertension Former smoker Hyperlipidemia Obstructive sleep apnea Osteoporosis Paroxysmal ventricular tachycardia Premature ventricular contractions 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 Home Medications multivitamin with folic acid 400 mcg tablet 1 tab PO DAILY vitamin 01/18/13 [History Last Taken 07/26/18] nitroglycerin 0.4 mg sublingual tablet 0.4 mg sublingual Q5M PRN Chest Pain 01/18/13 [History Last Taken 07/26/18] acetaminophen 500 mg capsule 500 mg PO Q6H PRN Pain 04/10/21 [History Last Taken Unknown] latanoprost 0.005 % eye drops 1 drp ophthalmic (eye) QHS eyes 30 days #2 mL 04/10/21 [History Last Taken Unknown] apixaban 5 mg tablet (Eliquis) 5 mg PO BID blood thinner 09/06/22 [History Last Taken Unknown] hydrochlorothiazide 25 mg tablet 25 mg PO QDAY water/BP 09/06/22 [History Last Taken Unknown] metoprolol succinate 50 mg tablet,extended release 24 hr 50 mg PO QDAY BP 09/06/22 [History Last Taken Unknown] pravastatin 40 mg tablet 40 mg PO QHS cholesterol 09/06/22 [History Last Taken Unknown] Allergy/AdvReac Type Severity Reaction Status Date / Time No Known Allergies Allergy Verified 04/14/22 11:10 Family History Father , age 77 Cancer larynx and prostate Surgical History Cardiac pacemaker in situ (01/2013) Social History (Updated 09/06/22 @ 17:[address] Chuck Nogueira MD) household members: none Smoking Status: Former smoker how long ago did patient quit smokin alcohol intake: current alcohol intake frequency: a few times a week Alcohol type: wine substance use type: does not use caffeine: No ROS Constitutional Constitutional: Denies chills, fever(s) or weight gain ENT HEENT: Denies headache(s), nasal congestion or nasal discharge Cardiovascular Cardiovascular: Denies chest pain or palpitations Respiratory/Chest Respiratory/Chest: Denies cough, excessive phlegm production or shortness of breath with exertion Gastrointestinal Gastrointestinal: Denies abdominal pain, nausea or vomiting Genitourinary Genitourinary: Denies dysuria Musculoskeletal Musculoskeletal: Reports other Details: Right hamstring pain. ; Denies joint pain or joint swelling Integumentary Integumentary: Denies rash or wounds Neurologic Neurologic: Denies focal weakness, numbness or tingling Psychiatric Psychiatric: Denies anxiety, auditory hallucinations, depression, homicidal ideation or suicidal ideation Vital Signs Vital Signs Vital Signs: 09/06/22 13:08 09/06/22 15:00 Temperature 98.1 F Temperature Source Oral Pulse Rate 70 70 Pulse Rhythm Irregular Pulse Strength Normal (2+) Respiratory Rate 18 18 Respiratory Effort Normal Respiratory Depth Normal Respiratory Pattern Normal Blood Pressure 122/66 H Blood Pressure Mean 84 Blood Pressure Source Monitor Blood Pressure Position Semi-Fowlers Blood Pressure Location Right Arm Pulse Ox 96 96 Oxygen Delivery Method Room Air Room Air Weight Weight: 97.522 kg Body Mass Index (BMI) 31.7 Physical Exam Const alert General Appearance: cooperative HEENT normocephalic Eyes PERRL and EOMs intact bilaterally Neck supple, no JVD and no carotid bruits Resp normal respiratory effort, normal air movement and clear to auscultation bilaterally Cardio regular rate and regular rhythm GI normal to inspection, nondistended, normoactive bowel sounds, non-tender and non-distended Extremity normal capillary refill General Extremity: Negative for edema Skin no rashes or lesions noted General Skin Exam: no breakdown Psych affect normal Appearance: appropriate Results Lab / Micro Data Result Diagrams: 09/07/22 06:25 09/07/22 06:25 Assessment & Plan Assessment/Plan (1) Debility: (2) Inability to walk: (3) Right leg pain: (4) Persistent atrial fibrillation: (5) Central sleep apnea: (6) Cardiac pacemaker in situ: (7) Essential (primary) hypertension: (8) Hyperlipidemia: (9) Coronary artery disease: (10) Right hamstring muscle strain: PLAN: Plan 87 year old male with below past medical history hospitalized for right hamstring strain, complicated by hyperbilirubinemia, thrombocytopenia, admitted to TCU with debility, here for rehabilitation, strengthening, prior to discharge home alone. Debility - PT/OT. Pain - Tylenol 1000mg q6h prn pain (1-5), Tramadol 50mg q6h prn pain (6-10), Bowel - senna/colace 1 tablet bid, Dulcolax 10mg pr daily prn. Adult immunization - Administer pneumonia vaccine, covid19 vaccine, flu vaccine as appropriate. DVT prophylaxis - on Eliquis. Atrial fibrillation - Metoprolol succinate 50mg daily, Eliquis 5mg bid. Hypertension - Metoprolol succinate 50mg daily, HCTZ 25mg daily. Glaucoma - Latanoprost 1gtt ou qhs. Nutrition - MVI 1 tablet daily. Coronary artery disease - Metoprolol succinate 50mg daily, NTG 0.4mg sl q5m prn. Tinea corporis - Nystatin powder topical bid. Hyperlipidemia - Pravastatin 40mg qhs.
[2022-09-06 20:56] VITALS: BP 112/61; PULSE 69; RESP 16; TEMP 36.9; O2SAT 98
[2022-09-06] MEDS: APIXABAN 5 MG TABLET PO (21:01)
[2022-09-06] MEDS: Pravastatin 40 MG Tablet PO (21:02)
[2022-09-06] MEDS: Latanoprost 0.005% 1 Bottle 1 DRP OPHTHALMIC (21:02)
[2022-09-07] MEDS: hydroCHLOROthiazide 25 MG Tablet PO (06:53)
[2022-09-07] MEDS: APIXABAN 5 MG TABLET PO ×2 (06:53→17:45)
[2022-09-07 06:54] LABS: Absolute Lymphocyte Count 1.63 X10^3/uL (0.83-4.51); Basophil# 0.04 X10^3/uL; Basophil% 0.4 % (0-1); Eosinophil# 0.11 X10^3/uL; Eosinophils% 1.2 % (0-5); Hematocrit 37.8 % (40-54); Hemoglobin 12.2 g/dL (13.0-16.5); Lymphocyte # 1.63 X10^3/ul (0.83-4.51); Lymphocyte % 18.2 % (19-41); Mean Corp Hgb Conc 32.3 g/dL (32-36); Mean Corpuscular Hgb 30.1 pg (27.0-32.0); Mean Corpuscular Volume 93.3 fL (80-94); Mean Platelet Vol. 10.4 fl (6.2-12.0); Monocyte# 1.15 X10^3/uL; Monocyte% 12.8 % (0-10); NRBC Flagged by Analyzer 0 % (0-5); Neutrophil # 5.99 X10^3/uL (2.7-7.7); Platelet Count 160 K/mm3 (150-450); RBC Distribution Width CV 13.3 % (11.6-14.6); RBC Distribution Width SD 45.4 fl (35.1-43.9); Red Blood Count 4.05 M/mm3 (4.6-6.2)
[2022-09-07 06:58] VITALS: BP 136/70; PULSE 69; RESP 16; TEMP 36.9; O2SAT 97
[2022-09-07 07:16] LABS: Anion Gap 5 (5-15); BUN 26 mg/dL (7-18); BUN/Creat Ratio 34.2 RATIO (10-20); Chloride 104 mmol/L (98-107); Creatinine, Serum 0.76 mg/dL (0.70-1.30); EST Glomerular Filtration Rate 103 mL/min (>60); Est Glom Filt Rate - Afr Amer 124 mL/min (>60); Estimated Creatinine Clearance 51.06 ml/min; Glucose 112 mg/dL (74-106); Potassium 3.6 mmol/L (3.5-5.1); Sodium Level 140 mmol/L (136-145)
[2022-09-07] MEDS: Multivitamins,Therapeutic Tablet 1 TABLET PO (08:56)
[2022-09-07] MEDS: Tuberculin,Purif.prot.deriv. 50 TU/ML Vial 0.1 ML ID (10:08)
[2022-09-07 12:04] VITALS: BP 117/63; PULSE 70
[2022-09-07] MEDS: Metoprolol(XL)Succ 50 MG Tablet PO (12:04)
[2022-09-07 16:00] VITALS: BP 119/64; PULSE 67; RESP 16; TEMP 36.6; O2SAT 96
[2022-09-07] MEDS: Pravastatin 40 MG Tablet PO (20:55)
[2022-09-07] MEDS: Nystatin Powder 15gm Bottle 1 APPLIC TOPICAL (20:55)
[2022-09-07] MEDS: Latanoprost 0.005% 1 Bottle 1 DRP OPHTHALMIC (20:55)
[2022-09-07] MEDS: Acetaminophen 500 MG Tablet 1000 MG PO (20:56)
[2022-09-08 07:00] VITALS: BP 125/67; PULSE 70
[2022-09-08] MEDS: hydroCHLOROthiazide 25 MG Tablet PO (07:00)
[2022-09-08] MEDS: APIXABAN 5 MG TABLET PO ×2 (07:00→22:19)
[2022-09-08] MEDS: Nystatin Powder 15gm Bottle 1 APPLIC TOPICAL ×2 (07:05→22:22)
[2022-09-08] MEDS: Multivitamins,Therapeutic Tablet 1 TABLET PO (08:20)
--- NOTE | 2022-09-08 10:08 | NURSING ---
Offered covid booster, education provided on vaccine. Patient refuses at this time.
[2022-09-08 11:39] VITALS: BP 107/67; PULSE 70; RESP 16; TEMP 36.8; O2SAT 95
[2022-09-08 11:41] VITALS: PULSE 70
[2022-09-08] MEDS: Metoprolol(XL)Succ 50 MG Tablet PO (11:41)
--- NOTE | 2022-09-08 15:32 | PCM.PN.DRR ---
TCU RX Drug Regimen Review Subjective: TCU Admission. 87 YOM presented to the ER with a fall. Hospitalized for right hamstring strain, complicated by hyperbilirubinemia, thrombocytopenia. Admitted to TCU with debility for strengthening and rehabilitation. Objective: Allergies No Known Allergies Allergy (Verified 04/14/22 11:10) Current Medications Generic Name Dose Route Start Last Admin Trade Name Freq PRN Reason Stop Dose Admin Acetaminophen 1,000 mg 09/06/22 18:01 09/07/22 20:56 Acetaminophen 500 Mg Tablet PO 1,000 mg Q6H PRN Administration Pain Score 1-5 Apixaban 5 mg 09/08/22 10:00 09/08/22 08:44 Apixaban 5 Mg Tablet PO Not Given 1000,2200 [facility] Bisacodyl 10 mg 09/06/22 13:16 Bisacodyl 10 Mg Suppository RC DAILY PRN Constipation Hydrochlorothiazide 25 mg 09/07/22 06:00 09/08/22 07:00 Hydrochlorothiazide 25 Mg Tablet PO 25 mg DAILY EB Administration Latanoprost 1 drp 09/06/22 22:00 09/07/22 20:55 Latanoprost 0.005% 1 Bottle OPHTHALMIC 1 drp QHS EB Administration Metoprolol Succinate 50 mg 09/07/22 12:00 09/08/22 11:41 Metoprolol(Xl)Succ 50 Mg Tablet PO 50 mg 1200 EB Administration Multivitamins 1 tablet 09/07/22 08:00 09/08/22 08:20 Multivitamins,Therapeutic Tablet PO 1 tablet DAILYCM EB Administration Nitroglycerin 0.4 mg 09/06/22 13:38 Nitroglycerin (Inpatient Use) 0.4 Mg Tab.Subl SL Q5M PRN Chest Pain Nystatin 1 applic 09/06/22 22:00 09/08/22 07:05 Nystatin Powder 15gm Bottle TOPICAL 1 applic 0600,2200 [facility] Administration Protocol Pravastatin Sodium 40 mg 09/06/22 22:00 09/07/22 20:55 Pravastatin 40 Mg Tablet PO 40 mg QHS [facility] Administration Senna/Docusate Sodium 1 tablet 09/06/22 18:00 09/08/22 07:00 Senna/Docusate Sodium 1 Tablet PO Not Given BID EB Sodium Chloride 10 - 40 ml 09/06/22 13:32 0.9% Saline Lock 10 Ml Syringe IV UD PRN SALINE FLUSH Tramadol HCl 50 mg 09/06/22 18:00 Tramadol 50 Mg Tablet PO Q6H PRN PRN Pain Score 6-10 Tuberculin PPD 0.1 ml 09/14/22 10:00 Tuberculin,Purif.Prot.Deriv. 50 Tu/Ml Vial ID 09/14/22 10:01 X1 ONE Problem List (Last Reviewed 09/06/22 @ 17:[address] Chuck Nogueira MD) Right hamstring muscle strain (Acute) Coronary artery disease (Acute) Debility (Acute) Inability to walk (Acute) Right leg pain (Acute) Persistent atrial fibrillation (Acute) Central sleep apnea (Acute) Cardiac pacemaker in situ (Chronic 01/2013) Essential (primary) hypertension (Chronic) Hyperlipidemia (Chronic) Vital Signs Temp Pulse Resp BP Pulse Ox O2 Del Method 98.2 F 70 16 107/67 95 Room Air 09/08/22 11:39 09/08/22 11:41 09/08/22 11:39 09/08/22 11:39 09/08/22 11:39 09/08/22 11:39 Oxygen Delivery Method Room Air Weight: 97.522 kg Body Mass Index (BMI) 31.7 Sodium 140 mmol/L (136-145) 09/07/22 06:25 Potassium 3.6 mmol/L (3.5-5.1) 09/07/22 06:25 Chloride 104 mmol/L (98-107) 09/07/22 06:25 Carbon Dioxide 31.0 mmol/L (21.0-32.0) 09/07/22 06:25 Anion Gap 5 (5-15) 09/07/22 06:25 BUN 26 mg/dL (7-18) H 09/07/22 06:25 Creatinine 0.76 mg/dL (0.70-1.30) 09/07/22 06:25 Est GFR (MDRD) Af Amer 124 mL/min (>60) 09/07/22 06:25 Est GFR (MDRD) Non-Af 103 mL/min (>60) 09/07/22 06:25 BUN/Creatinine Ratio 34.2 RATIO (10-20) H 09/07/22 06:25 Glucose 112 mg/dL (74-106) H 09/07/22 06:25 Assessment/Plan: 1. Pain: acetaminophen 1000mg PO Q6H PRN pain 1-5 and tramadol 50mg PO Q6H PRN pain 6-10. Resident has had 1 dose of acetaminophen for a pain score of 2 in the left leg but no doses of tramadol. Please continue to monitor for increased pain, PRN usage, constipation, renal function, and respiratory depression. 2. Bowel: senna/docusate 1T PO BID and bisacodyl 10mg RC x1 PRN constipation. Resident has not had any PRN doses, last documented bowel movement 09/08. Resident has refused 4/4 doses of senna/docusate. Please consider changing from scheduled to PRN constipation. Thanks. 3. Atrial fibrillation/hypertension/CAD: metoprolol succinate 50mg PO daily, nitroglycerin 0.4mg SL Q5M PRN chest pain, hydrochlorothiazide 25mg PO daily and apixaban 5mg PO BID. Please continue to monitor HR (last 70), BP (last 107/67), sodium (last 140mmol/L), potassium (last 3.6mmol/L), renal function, S/S of bleeding and hemoglobin (last 12.2g/dL). Resident has not used any PRN doses. 4. Hyperlipidemia: pravastatin 40mg PO QHS. Please consider ordering a lipid panel as this resident does not have one in the chart. Thanks. Please continue to monitor LFTs (last 09/06/22) and muscle pain. 5. Glaucoma: latanoprost 0.005% 1gtt OU QHS. Please continue to monitor for S/S of glaucoma and eye irritation. 6. Nutrition: multivitamin 1T PO daily. Please continue to monitor. Assessment/Plan for indications treated with psychotropic medications: None Medical chart and medication regimen reviewed. The following medication irregularities or issues were identified: *1. Senna/docusate 1T PO BID. Resident has refused 4/4 doses of senna/docusate. Please consider changing from scheduled to PRN constipation. Thanks. Date of Note:: 09/08/22
--- NOTE | 2022-09-08 17:03 | CASEMGMT ---
Social Work Met with patient to complete initial assessment. Introduced self and role. Verified contacts. Discussed code status and MOLST form. Pt wishes to be DNR-CCA, no intubation. MOLST form placed in Dr folder. Educated to Medicare benefit. Encouraged to contact secondary insurance to ensure copay coverage. Pt's goal is to return home alone at [facility]. SW to continue to follow for DC planning. RYDER garyW
[2022-09-08] MEDS: Acetaminophen 500 MG Tablet 1000 MG PO (22:16)
[2022-09-08] MEDS: Latanoprost 0.005% 1 Bottle 1 DRP OPHTHALMIC (22:18)
[2022-09-08] MEDS: Pravastatin 40 MG Tablet PO (22:19)
[2022-09-08 23:00] VITALS: PULSE 80; RESP 16; O2SAT 97
[2022-09-09] MEDS: hydroCHLOROthiazide 25 MG Tablet PO (06:19)
[2022-09-09] MEDS: Nystatin Powder 15gm Bottle 1 APPLIC TOPICAL ×2 (06:19→21:48)
[2022-09-09 06:25] VITALS: BP 135/73; PULSE 70
[2022-09-09] MEDS: Multivitamins,Therapeutic Tablet 1 TABLET PO (08:36)
[2022-09-09 09:42] VITALS: BMI 28.0
[2022-09-09 10:00] VITALS: PULSE 69; O2SAT 96
[2022-09-09] MEDS: APIXABAN 5 MG TABLET PO ×2 (10:43→21:45)
[2022-09-09 12:07] VITALS: BP 131/69; PULSE 70
[2022-09-09] MEDS: Metoprolol(XL)Succ 50 MG Tablet PO (12:07)
[2022-09-09 14:21] VITALS: BP 119/58; PULSE 70; RESP 18; TEMP 36.2; O2SAT 94
[2022-09-09] MEDS: Senna/Docusate Sodium 1 Tablet PO (16:56)
[2022-09-09] MEDS: Latanoprost 0.005% 1 Bottle 1 DRP OPHTHALMIC (21:45)
[2022-09-09] MEDS: Pravastatin 40 MG Tablet PO (21:46)
[2022-09-10] MEDS: Nystatin Powder 15gm Bottle 1 APPLIC TOPICAL ×2 (05:54→22:30)
[2022-09-10] MEDS: hydroCHLOROthiazide 25 MG Tablet PO (05:54)
[2022-09-10 05:56] VITALS: BP 175/67; PULSE 70
[2022-09-10] MEDS: Multivitamins,Therapeutic Tablet 1 TABLET PO (08:22)
[2022-09-10 10:00] VITALS: PULSE 70; RESP 16; O2SAT 95
[2022-09-10] MEDS: APIXABAN 5 MG TABLET PO ×2 (10:17→22:29)
--- NOTE | 2022-09-10 12:17 | NURSING ---
Vinyl Installer Note; Activity Asset: Clint Irizarry is independent in his choice of daily activities. When not in therapy he watches tv, visit w/family, friends, confucianism and will read and do word puzzles. Juan C enjoys talking about his time in the and the places he has traveled.
[2022-09-10 12:27] VITALS: BP 109/58; PULSE 70
[2022-09-10] MEDS: Metoprolol(XL)Succ 50 MG Tablet PO (12:27)
--- NOTE | 2022-09-10 14:05 | CASEMGMT ---
Social Work IDT met with patient and son for care plan meeting. Discussed patient's progress in PT/OT/SN. Educated to Medicare benefit. Encouraged to contact secondary insurance to ensure copay coverage. Pt's goal is to return home alone closer to [place]. SW offered to provide assistance with DC planning. RYDER MaloneW
[2022-09-10 15:11] VITALS: BP 129/75; PULSE 70; RESP 16; TEMP 36.6; O2SAT 96
--- NOTE | 2022-09-10 16:07 | CHAPLAIN ---
Type of Pastoral Visit _x__ Initial Visit ___ Follow-up Visit ___ On-call Visit ___ General Patient Visit ___ Spiritual Assessment ___ Family Conference ___ Bereavement ___ Rapid Response ___ Code Blue ___ Other (describe below) Pastoral Care Referral From _x__ Patient ___ Family ___ Nurse ___ Physician ___ Pulp Roller ___ Nuclear Equipment Sales Engineer ___ Other (describe below) Sacrament/Intervention _x__ Active listening ___ Anointing ___ Sikhism ___ Bereavement ___ Communion _x__ Gregoria exploration ___ _x__ Life review _x__ Prayer ___ Reconciliation ___ Sacrament of Sick ___ Supportive presence ___ Wedding ___ Other (describe below) Pastoral Comments patient is welcoming and eager to talk; pt speaks of time when was sick for five years before her and how he cared for her at home; pt has strong gregoria and is active with [employer] including a visit today for communion purposes; pt shares inspirational thoughts of his own; pt is positive about care and outcome; pt welcomes spiritual care in future
[2022-09-10] MEDS: Senna/Docusate Sodium 1 Tablet PO (17:03)
[2022-09-10] MEDS: Latanoprost 0.005% 1 Bottle 1 DRP OPHTHALMIC (22:29)
[2022-09-10] MEDS: Pravastatin 40 MG Tablet PO (22:29)
[2022-09-11] MEDS: hydroCHLOROthiazide 25 MG Tablet PO (05:47)
[2022-09-11 05:48] VITALS: BP 126/70; PULSE 70
[2022-09-11] MEDS: Nystatin Powder 15gm Bottle 1 APPLIC TOPICAL ×2 (05:48→22:38)
[2022-09-11] MEDS: Multivitamins,Therapeutic Tablet 1 TABLET PO (07:54)
[2022-09-11 09:39] VITALS: PULSE 85; O2SAT 98
[2022-09-11] MEDS: APIXABAN 5 MG TABLET PO ×2 (09:48→22:38)
[2022-09-11 11:57] VITALS: BP 102/64; PULSE 85; RESP 17; TEMP 36.7; O2SAT 96
[2022-09-11 12:00] VITALS: PULSE 85
[2022-09-11] MEDS: Metoprolol(XL)Succ 50 MG Tablet PO (12:00)
--- NOTE | 2022-09-11 12:38 | MDS.RN ---
MDS pain interview for triston 09/13/22 completed.
[2022-09-11 14:45] VITALS: BP 120/62; PULSE 70; RESP 16; TEMP 36.6; O2SAT 95
[2022-09-11] MEDS: Senna/Docusate Sodium 1 Tablet PO (16:42)
[2022-09-11] MEDS: Pravastatin 40 MG Tablet PO (22:38)
[2022-09-11] MEDS: Latanoprost 0.005% 1 Bottle 1 DRP OPHTHALMIC (22:38)
[2022-09-12 06:45] VITALS: BP 112/72; PULSE 66
[2022-09-12] MEDS: Senna/Docusate Sodium 1 Tablet PO (06:49)
[2022-09-12] MEDS: hydroCHLOROthiazide 25 MG Tablet PO (06:49)
[2022-09-12] MEDS: Nystatin Powder 15gm Bottle 1 APPLIC TOPICAL ×2 (06:51→23:03)
[2022-09-12] MEDS: APIXABAN 5 MG TABLET PO ×2 (08:43→23:00)
[2022-09-12] MEDS: Multivitamins,Therapeutic Tablet 1 TABLET PO (08:43)
[2022-09-12 12:02] VITALS: PULSE 68
[2022-09-12] MEDS: Metoprolol(XL)Succ 50 MG Tablet PO (12:02)
--- NOTE | 2022-09-12 13:04 | CASEMGMT ---
Social Work BIMS () and PHQ-9 (06/02) completed for MDS assessment. Frances Gibbs MSW ASSEMBLY LINE WORKER
[2022-09-12 15:00] VITALS: BP 125/70; PULSE 70; RESP 16; TEMP 36.8; O2SAT 95
[2022-09-12] MEDS: Pravastatin 40 MG Tablet PO (23:01)
[2022-09-12] MEDS: Latanoprost 0.005% 1 Bottle 1 DRP OPHTHALMIC (23:01)
[2022-09-13] MEDS: Nystatin Powder 15gm Bottle 1 APPLIC TOPICAL ×2 (06:28→20:57)
[2022-09-13] MEDS: hydroCHLOROthiazide 25 MG Tablet PO (06:28)
[2022-09-13] MEDS: Multivitamins,Therapeutic Tablet 1 TABLET PO (08:18)
[2022-09-13 13:08] VITALS: BP 114/59; PULSE 67; RESP 15; TEMP 36.9; O2SAT 97
[2022-09-13 13:12] VITALS: BP 114/59; PULSE 67; RESP 15; TEMP 36.9; O2SAT 97
[2022-09-13 13:54] VITALS: PULSE 67
[2022-09-13] MEDS: APIXABAN 5 MG TABLET PO ×2 (13:54→20:56)
[2022-09-13] MEDS: Metoprolol(XL)Succ 50 MG Tablet PO (13:54)
[2022-09-13] MEDS: Latanoprost 0.005% 1 Bottle 1 DRP OPHTHALMIC (20:55)
[2022-09-13] MEDS: Pravastatin 40 MG Tablet PO (20:56)
[2022-09-13 21:10] VITALS: O2SAT 96
[2022-09-14 04:54] LABS: Absolute Lymphocyte Count 1.53 X10^3/uL (0.83-4.51); Basophil# 0.03 X10^3/uL; Basophil% 0.4 % (0-1); Eosinophil# 0.21 X10^3/uL; Eosinophils% 2.8 % (0-5); Hematocrit 35.4 % (40-54); Hemoglobin 11.1 g/dL (13.0-16.5); Lymphocyte # 1.53 X10^3/ul (0.83-4.51); Lymphocyte % 20.1 % (19-41); Mean Corp Hgb Conc 31.4 g/dL (32-36); Mean Corpuscular Hgb 29.5 pg (27.0-32.0); Mean Corpuscular Volume 94.1 fL (80-94); Mean Platelet Vol. 9.6 fl (6.2-12.0); Monocyte# 0.89 X10^3/uL; Monocyte% 11.7 % (0-10); NRBC Flagged by Analyzer 0 % (0-5); Neutrophil # 4.95 X10^3/uL (2.7-7.7); Neutrophil % 64.7 % (47-70); Platelet Count 165 K/mm3 (150-450); RBC Distribution Width SD 44.7 fl (35.1-43.9); Red Blood Count 3.76 M/mm3 (4.6-6.2); White Blood Count 7.6 K/mm3 (4.4-11.0)
[2022-09-14 05:21] LABS: Anion Gap 2 (5-15); BUN 32 mg/dL (7-18); BUN/Creat Ratio 36.1 RATIO (10-20); Calcium,Total 8.5 mg/dL (8.5-10.1); Chloride 105 mmol/L (98-107); Creatinine, Serum 0.89 mg/dL (0.70-1.30); EST Glomerular Filtration Rate 86 mL/min (>60); Est Glom Filt Rate - Afr Amer 104 mL/min (>60); Estimated Creatinine Clearance 57.37 ml/min; Glucose 103 mg/dL (74-106); Potassium 3.5 mmol/L (3.5-5.1); Sodium Level 140 mmol/L (136-145)
[2022-09-14] MEDS: hydroCHLOROthiazide 25 MG Tablet PO (06:15)
[2022-09-14] MEDS: Nystatin Powder 15gm Bottle 1 APPLIC TOPICAL ×2 (06:17→20:32)
[2022-09-14] MEDS: Multivitamins,Therapeutic Tablet 1 TABLET PO (08:41)
[2022-09-14] MEDS: Tuberculin,Purif.prot.deriv. 50 TU/ML Vial 0.1 ML ID (09:28)
[2022-09-14] MEDS: APIXABAN 5 MG TABLET PO ×2 (09:28→20:28)
[2022-09-14 09:39] VITALS: PULSE 51; O2SAT 96
[2022-09-14 12:59] VITALS: BP 110/53; PULSE 69
[2022-09-14] MEDS: Metoprolol(XL)Succ 50 MG Tablet PO (12:59)
[2022-09-14 14:18] VITALS: BP 113/62; PULSE 69; RESP 16; TEMP 36.8; O2SAT 98
[2022-09-14] MEDS: Pravastatin 40 MG Tablet PO (20:28)
[2022-09-14] MEDS: Latanoprost 0.005% 1 Bottle 1 DRP OPHTHALMIC (20:29)
[2022-09-15 07:52] VITALS: BP 105/63; PULSE 62
[2022-09-15] MEDS: Nystatin Powder 15gm Bottle 1 APPLIC TOPICAL ×2 (07:54→23:07)
[2022-09-15] MEDS: Multivitamins,Therapeutic Tablet 1 TABLET PO (07:54)
[2022-09-15] MEDS: hydroCHLOROthiazide 25 MG Tablet PO (07:54)
[2022-09-15] MEDS: APIXABAN 5 MG TABLET PO ×2 (09:57→23:04)
[2022-09-15 11:14] VITALS: BP 103/68; PULSE 71; RESP 16; TEMP 36.8; O2SAT 96
[2022-09-15 11:17] VITALS: PULSE 71
[2022-09-15] MEDS: Metoprolol(XL)Succ 50 MG Tablet PO (11:17)
[2022-09-15] MEDS: Latanoprost 0.005% 1 Bottle 1 DRP OPHTHALMIC (23:04)
[2022-09-15] MEDS: Pravastatin 40 MG Tablet PO (23:05)
[2022-09-16] MEDS: hydroCHLOROthiazide 25 MG Tablet PO (06:50)
[2022-09-16] MEDS: Multivitamins,Therapeutic Tablet 1 TABLET PO (06:51)
[2022-09-16] MEDS: Nystatin Powder 15gm Bottle 1 APPLIC TOPICAL ×2 (06:52→22:59)
[2022-09-16 08:33] VITALS: BP 125/80; PULSE 83
[2022-09-16 09:42] VITALS: PULSE 70; O2SAT 97
[2022-09-16] MEDS: APIXABAN 5 MG TABLET PO ×2 (09:49→22:58)
--- NOTE | 2022-09-16 10:26 | CASEMGMT ---
Social Work SW spoke with pt about request to DC home 09/18. IDT agreeable. Pt requesting PT at [facility] and has no DME needs. Family to transport. SW faxed referral to [facility]. Plan: DC home alone 09/18, [facility] PT Frances Gibbs, TABULATING CLERK ROUNDER AND BACKER
[2022-09-16 10:31] VITALS: BMI 27.7
--- NOTE | 2022-09-16 10:43 | MDS.RN ---
Information for the mds was obtained from review of the clinical record, interview of resident, staff, and direct observation of resident's care.
[2022-09-16 12:45] VITALS: BP 121/67; PULSE 70
[2022-09-16] MEDS: Metoprolol(XL)Succ 50 MG Tablet PO (12:45)
[2022-09-16 14:49] VITALS: BP 121/67; PULSE 70; RESP 16; TEMP 36.2; O2SAT 95
[2022-09-16 17:31] VITALS: BP 108/63; PULSE 66
--- NOTE | 2022-09-16 17:34 | DS.PCM_ITS ---
Providers Date of Admission: 09/06/22 Primary Care Physician: Manuela Ribera DO Reason For Visit: INABILITY TO WALK/HIP PAIN Diagnosis Discharge Diagnosis (1) Debility: Status: Acute Code(s): R53.81 - Other malaise (2) Inability to walk: Status: Acute Code(s): R26.2 - Difficulty in walking, not elsewhere classified (3) Right leg pain: Status: Acute Code(s): M79.604 - Pain in right leg (4) Persistent atrial fibrillation: Status: Acute Code(s): I48.19 - Other persistent atrial fibrillation (5) Central sleep apnea: Status: Acute Code(s): G47.31 - Primary central sleep apnea (6) Cardiac pacemaker in situ: Status: Chronic Code(s): Z95.0 - Presence of cardiac pacemaker (7) Essential (primary) hypertension: Status: Chronic Code(s): I10 - Essential (primary) hypertension (8) Hyperlipidemia: Status: Chronic Code(s): E78.5 - Hyperlipidemia, unspecified (9) Coronary artery disease: Status: Acute Code(s): I25.10 - Atherosclerotic heart disease of [place] coronary artery without angina pectoris (10) Right hamstring muscle strain: Status: Acute Code(s): S76.311A - Strain of muscle, fascia and tendon of the posterior muscle group at thigh level, right thigh, initial encounter Plan 87 year old male with below past medical history hospitalized for right ham string strain, complicated by hyperbilirubinemia, thrombocytopenia, admitted to TCU with debility, here for rehabilitation, strengthening, prior to discharge home alone. * Debility - PT/OT. * Pain - Tylenol 1000mg q6h prn pain (1-5), Tramadol 50mg q6h prn pain (6-10), * Bowel - senna/colace 1 tablet bid, Dulcolax 10mg pr daily prn. * Adult immunization - Administer pneumonia vaccine, covid19 vaccine, flu vaccine as appropriate. * DVT prophylaxis - on Eliquis. * Atrial fibrillation - Metoprolol succinate 50mg daily, Eliquis 5mg bid. * Hypertension - Metoprolol succinate 50mg daily, HCTZ 25mg daily. * Glaucoma - Latanoprost 1gtt ou qhs. * Nutrition - MVI 1 tablet daily. * Coronary artery disease - Metoprolol succinate 50mg daily, NTG 0.4mg sl q5m prn. * Tinea corporis - Nystatin powder topical bid. * Hyperlipidemia - Pravastatin 40mg qhs. Medications at Discharge Home Medications multivitamin with folic acid 400 mcg tablet 1 tab PO DAILY vitamin 01/18/13 nitroglycerin 0.4 mg sublingual tablet 0.4 mg sublingual Q5M PRN Chest Pain 01/18/13 latanoprost 0.005 % eye drops 1 drp ophthalmic (eye) QHS eyes 30 days #2 mL 04/10/21 apixaban 5 mg tablet (Eliquis) 5 mg PO BID blood thinner 09/06/22 hydrochlorothiazide 25 mg tablet 25 mg PO QDAY water/BP 09/06/22 metoprolol succinate 50 mg tablet,extended release 24 hr 50 mg PO QDAY BP 09/06/22 pravastatin 40 mg tablet 40 mg PO QHS cholesterol 09/06/22 acetaminophen 500 mg tablet 1,000 mg PO Q6H PRN Pain Score 1-5 #0 tabs 09/16/22 Hospital Course Operations None Procedures None Summary of Care Provided Minutes Spent on Discharge: 35 Hospital Course: 87 year old male with below past medical history hospitalized for right hamstring strain, complicated by hyperbilirubinemia, thrombocytopenia, admitted to TCU with debility, here for rehabilitation, strengthening, prior to discharge home alone. Discharge home alone 09/18/2022, [facility]. Physical Exam Const alert General Appearance: cooperative HEENT normocephalic Eyes PERRL and EOMs intact bilaterally Neck supple, no JVD and no carotid bruits Resp normal respiratory effort, normal air movement and clear to auscultation bilaterally Cardio regular rate and regular rhythm GI normal to inspection, nondistended, normoactive bowel sounds, non-tender and non-distended Extremity normal capillary refill General Extremity: Negative for edema Skin no rashes or lesions noted General Skin Exam: no breakdown Psych affect normal Appearance: appropriate Weight / BMI Weight Weight: 85.23 kg Body Mass Index (BMI) 27.7 ABG / Lab / Microbiology Data Result Diagrams: 09/14/22 04:35 09/14/22 04:35 Microbiology: Microbiology 09/10/22 Unknown Nasal Secretion SARS-CoV-2 Antigen (Rapid) - Final 09/08/22 11:04 Nasal Secretion SARS-CoV-2 Antigen (Rapid) - Final D/C Instructions Discharge Diet: No restrictions Discharge Activity: Return to Normal Activity, May Shower and Use Walker Weight Bearing Status: Weight bearing as tolerated Call your doctor if you observe: Fever of 101 or Higher, Inability to urinate, Inability to have a bowel movement, Shortness of breath, Dizziness, Fainting spells, Swelling in the ankles, Chest pain and Uncontrolled pain Additional Instructions: Discharge home alone 09/18/2022, [facility]. Please Follow Up With: RITA When: As scheduled. Meaningful Use Info Meaningful Use Diagnoses (Choose all that apply): None applicable Discharge Plan Admission Admit Date/Time: 09/06/22 12:40 Primary Reason for Your Visit: Debility. Attending Provider: Chuck Nogueira Chi Primary Care Provider: Manuela Ribera Instructions Additional Instructions / Restrictions: Discharge home alone 09/18/2022, [facility] PT. Discharge Orders/Prescriptions Prescriptions: New acetaminophen 500 mg Tablet 1,000 mg PO Q6H PRN (Reason: Pain Score 1-5) Qty: 0 0RF Continued latanoprost 0.005 % drops 1 drp OPHTHALMIC QHS 30 Days Qty: 2 Rx Instructions: both eyes nitroglycerin 0.4 MG tablet 0.4 mg SUBLINGUAL Q5M PRN (Reason: Chest Pain) Label Comments: RELIEF CHEST PAIN multivitamin with folic acid 1 TABLET tablet 1 tab PO DAILY Label Comments: VITAMENS pravastatin 40 mg tablet 40 mg PO QHS metoprolol succinate 50 mg tablet extended release 24 hr 50 mg PO QDAY Rx Instructions: at noon hydrochlorothiazide 25 mg tablet 25 mg PO QDAY Eliquis 5 mg tablet 5 mg PO BID Discontinued acetaminophen 500 mg capsule 500 mg PO Q6H PRN (Reason: Pain) Referrals / Follow Up: Manuela Ribera DO [Primary Care Provider] - Disposition Disposition (needs filled in before D/C Order can be placed): Home, Self Care
[2022-09-16] MEDS: Latanoprost 0.005% 1 Bottle 1 DRP OPHTHALMIC (22:57)
[2022-09-16] MEDS: Pravastatin 40 MG Tablet PO (22:58)
[2022-09-17] MEDS: Nystatin Powder 15gm Bottle 1 APPLIC TOPICAL ×2 (07:18→22:11)
[2022-09-17] MEDS: hydroCHLOROthiazide 25 MG Tablet PO (07:18)
[2022-09-17] MEDS: Multivitamins,Therapeutic Tablet 1 TABLET PO (08:16)
[2022-09-17 11:23] VITALS: BP 100/62; PULSE 66
[2022-09-17] MEDS: Metoprolol(XL)Succ 50 MG Tablet PO (11:23)
[2022-09-17] MEDS: APIXABAN 5 MG TABLET PO ×2 (11:23→22:08)
[2022-09-17 14:29] VITALS: BP 104/58; PULSE 70; RESP 18; TEMP 36.9; O2SAT 96
[2022-09-17 21:00] VITALS: PULSE 70; RESP 16; O2SAT 98
[2022-09-17] MEDS: Pravastatin 40 MG Tablet PO (22:07)
[2022-09-17] MEDS: Latanoprost 0.005% 1 Bottle 1 DRP OPHTHALMIC (22:08)
[2022-09-18] MEDS: Nystatin Powder 15gm Bottle 1 APPLIC TOPICAL (08:08)
[2022-09-18] MEDS: hydroCHLOROthiazide 25 MG Tablet PO (08:08)
[2022-09-18] MEDS: Multivitamins,Therapeutic Tablet 1 TABLET PO (08:08)
--- NOTE | 2022-09-18 08:45 | CASEMGMT ---
Social Work BIMS () and PHQ-9 () completed for MDS assessment. Frances Gibbs MSW TALENT ACQUISITION COORDINATOR
[2022-09-18] MEDS: APIXABAN 5 MG TABLET PO (09:52)
[2022-09-18 10:00] VITALS: PULSE 85; O2SAT 95
[2022-09-18 12:55] VITALS: BP 121/58; PULSE 70; RESP 18; TEMP 36.7; O2SAT 98
[2022-09-18 13:06] VITALS: BP 121/58; PULSE 70
[2022-09-18] MEDS: Metoprolol(XL)Succ 50 MG Tablet PO (13:06)
== END 2022-09-18 13:10 | disposition home or self-care (01) | DRG 949 ==
PROVIDERS: Admitting Provider Family Medicine Geriatric Medicine; PCP Family Medicine; Visit Provider Family Medicine Geriatric Medicine
DX: S76.311D Strain of muscle, fascia and tendon of the posterior muscle group at thigh level, right thigh, subsequent encounter (principal); I48.19 Other persistent atrial fibrillation; G47.31 Primary central sleep apnea; E78.5 Hyperlipidemia, unspecified; B35.4 Tinea corporis; H40.9 Unspecified glaucoma; I10 Essential (primary) hypertension; I25.10 Atherosclerotic heart disease of native coronary artery without angina pectoris; Z87.891 Personal history of nicotine dependence; Z79.01 Long term (current) use of anticoagulants; Z95.0 Presence of cardiac pacemaker; Z79.899 Other long term (current) drug therapy
CPT/HCPCS: 36415; 80048; 85025; 87811; 97110; 97116; 97162; 97165; 97530; 97535; 97802

== ENCOUNTER → 2022-10-17 | Outpatient (CLI) | payer MEDICARE, OTHER, SELFPAY ==
[2022-10-17 12:49] LABS: ALB/GLOB Ratio 0.8 RATIO (0.9-2.4); AST(SGOT) 18 U/L (15-37); Alanine Aminotransfer ALT/SGPT 20 U/L (16-61); Albumin, Serum 3.4 g/dL (3.2-5.0); Alkaline Phosphatase 64 U/L (45-117); Anion Gap 5 (5-15); BUN 23 mg/dL (7-18); BUN/Creat Ratio 25.4 RATIO (10-20); Calcium,Total 8.9 mg/dL (8.5-10.1); Chloride 103 mmol/L (98-107); Cholesterol 108 mg/dL (200); Creatinine, Serum 0.91 mg/dL (0.70-1.30); EST Glomerular Filtration Rate 84 mL/min (>60); Est Glom Filt Rate - Afr Amer 102 mL/min (>60); Glucose 88 mg/dL (74-106); High Density Lipoprotein 62 mg/dL; Potassium 3.8 mmol/L (3.5-5.1); Protein, Total 7.4 g/dL (6.4-8.2); Sodium Level 140 mmol/L (136-145); Triglycerides 57 mg/dL; Very Low Density Lipoprotein 11 mg/dL (5-40)
[2022-10-17 12:52] LABS: Absolute Lymphocyte Count 1.44 X10^3/uL (0.83-4.51); Absolute Neutrophil Count 4.2 X10^3/uL (2.0-7.7); Basophil# 0.02 X10^3/uL; Basophil% 0.3 % (0-1); Eosinophils% 3.1 % (0-5); Hematocrit 39.5 % (40-54); Hemoglobin 12.8 g/dL (13.0-16.5); Lymphocyte # 1.44 X10^3/ul (0.83-4.51); Lymphocyte % 22.1 % (19-41); Mean Corp Hgb Conc 32.4 g/dL (32-36); Mean Corpuscular Hgb 30.4 pg (27.0-32.0); Mean Corpuscular Volume 93.8 fL (80-94); Mean Platelet Vol. 10.6 fl (6.2-12.0); Monocyte# 0.68 X10^3/uL; Monocyte% 10.4 % (0-10); NRBC Flagged by Analyzer 0 % (0-5); Neutrophil # 4.17 X10^3/uL (2.7-7.7); Neutrophil % 63.9 % (47-70); Platelet Count 117 K/mm3 (150-450); RBC Distribution Width SD 44.6 fl (35.1-43.9); Red Blood Count 4.21 M/mm3 (4.6-6.2); White Blood Count 6.5 K/mm3 (4.4-11.0)
== END | disposition home or self-care (01) ==
LOC: MTLAB 09:37
PROVIDERS: PCP Family Medicine; Referring Provider Family Medicine; Visit Provider Family Medicine
DX: I10 Essential (primary) hypertension (principal); E78.5 Hyperlipidemia, unspecified
CPT/HCPCS: 36415; 80053; 80061; 82043; 85025

== ENCOUNTER → 2023-01-06 | Outpatient (CLI) | payer MEDICARE, OTHER, SELFPAY ==
[2023-01-06 19:43] LABS: Color, Urine Yellow (Yellow); Glucose, Dipstick Normal (Normal); Ketone-Dipstick Negative (Negative); Leukocyte Esterase-Dipstick 25 /ul (Negative); Nitrite-Dipstick Negative (Negative); Occult Blood-Urine 250 /ul (Negative); Protein-Dipstick 15 mg/dl (Negative); Specific Gravity, Urine 1.015 (1.002-1.030); Urine Clarity Sl. Cloudy (Clear); Urine Urobilinogen 4 mg/dl (Normal)
[2023-01-06 19:55] LABS: Urine Bilirubin Dipstick 1 mg/dL (Negative)
== END | disposition home or self-care (01) ==
LOC: LABSPEC 18:05
PROVIDERS: PCP Family Medicine; Visit Provider Family Medicine
DX: R31.9 Hematuria, unspecified (principal)
CPT/HCPCS: 81002; 87086; 87088; 87186

== ENCOUNTER 2023-04-15 09:35 | Day surgery (SDC) | payer MEDICARE, OTHER, SELFPAY ==
[2023-04-15 09:36] VITALS: BP 128/72; PULSE 73; RESP 14; RESP 20; TEMP 36.8; O2SAT 96; O2SAT 97; BMI 27.2
--- NOTE | 2023-04-15 09:52 | EKG12_ITS ---
Test Reason : PACE MAKER MAL Blood Pressure : / mmHG Vent. Rate : 081 BPM Atrial Rate : 051 BPM P-R Int : 000 ms QRS Dur : 160 ms QT Int : 440 ms P-R-T Axes : 000 -48 096 degrees QTc Int : 511 ms Ventricular-paced rhythm with frequent Premature ventricular complexes Abnormal ECG Confirmed by DOMINICK MATHEW, NICHOL ([id number]), editor school photograph YOSEPH DANIEL ([id number]) on 04/17/2023 6:41:13 AM Referred By: Confirmed By:NICHOL TAN MD
--- NOTE | 2023-04-15 09:52 | EX.ED.DYSGE1 ---
HPI History of Present Illness Chief Complaint: Dizziness Detail of Chief Complaint: Dizziness and needs pacer batteries replaced Informant: patient Narrative Narrative: Patient presents to the emergency department with complaint of dizziness this morning with standing. Apparently he was contacted by the pacer nurse who told him that he needed to come to the emergency department because he needed his pacer batteries replaced. He had a pacer placed in 2012 and has the original batteries. He denies chest pain or shortness of breath. He states he had COVID over [place] but recovered from that. Otherwise has no complaints. [facility] Medical History Bradycardia Essential (primary) hypertension Former smoker Hyperlipidemia Obstructive sleep apnea Osteoporosis Paroxysmal ventricular tachycardia Premature ventricular contractions 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 Home Medications multivitamin with folic acid 400 mcg tablet 1 tab PO DAILY vitamin 01/18/13 [History Last Taken 07/26/18] nitroglycerin 0.4 mg sublingual tablet 0.4 mg sublingual Q5M PRN Chest Pain 01/18/13 [History Last Taken 07/26/18] latanoprost 0.005 % eye drops 1 drp ophthalmic (eye) QHS eyes 30 days #2 mL 04/10/21 [History Last Taken Unknown] apixaban 5 mg tablet (Eliquis) 5 mg PO BID blood thinner 09/06/22 [History Last Taken Unknown] hydrochlorothiazide 25 mg tablet 25 mg PO QDAY water/BP 09/06/22 [History Last Taken Unknown] metoprolol succinate 50 mg tablet,extended release 24 hr 50 mg PO QDAY BP 09/06/22 [History Last Taken Unknown] pravastatin 40 mg tablet 40 mg PO QHS cholesterol 09/06/22 [History Last Taken Unknown] acetaminophen 500 mg tablet 1,000 mg (2 x 500 mg) PO Q6H PRN Pain Score 1-5 #0 tabs 09/16/22 [Rx Last Taken Unknown] Allergy/AdvReac Type Severity Reaction Status Date / Time No Known Allergies Allergy Verified 04/15/23 09:35 Family History Father , age 77 Cancer larynx and prostate Surgical History Cardiac pacemaker in situ (01/2013) Social History household members: none Smoking Status: Former smoker how long ago did patient quit smokin alcohol intake: current alcohol intake frequency: a few times a week Alcohol type: wine substance use type: does not use caffeine: No ROS ROS ED Review of Systems ROS Unobtainable: other Constitutional Constitutional ED: Reports lethargy; Denies chills, fever(s), sweats or weight loss Eyes Eyes: Denies blurry vision, change in vision or diplopia ENT ENT ED: Denies rhinorrhea or sore throat Cardiovascular Cardiovascular: Denies chest pain, orthopnea or racing heartbeat Respiratory/Chest Respiratory/Chest: Denies cough, dyspnea, dyspnea on exertion, orthopnea or sputum Gastrointestinal Gastrointestinal: Denies abdominal pain, diarrhea, nausea or vomiting Genitourinary Genitourinary ED: Denies dysuria, hematuria or urinary frequency Musculoskeletal Musculoskeletal: Denies arthralgias, back pain, myalgias or neck pain Integumentary Denies abscess, Abrasions or rash Neurologic Neurologic: Reports other Details: Dizziness ; Denies headache(s) or weakness Psychiatric Psychiatric: Denies anxiety, depression or suicidal thoughts Endocrine Endocrinology: Denies polydipsia, polyphagia or polyuria Hematologic/Lymphatic Hematologic/Lymphatic: Denies easy bleeding, easy bruising or lymphadenopathy Allergic/Immunologic Allergic/Immunologic ED: Denies mouth swelling, tongue swelling or urticaria EXAM Physical Exam Const Vital Signs: 04/15/23 09:36 04/15/23 09:36 04/15/23 09:36 Temperature 98.3 F Temperature Source Oral Pulse Rate 73 73 Respiratory Rate 20 H 14 Respiratory Effort Normal Non-Labored Respiratory Pattern Normal Blood Pressure 128/72 H 128/72 H Blood Pressure Mean 90 90 Pulse Ox 97 96 Oxygen Delivery Method Room Air Room Air 04/15/23 10:35 04/15/23 11:00 Temperature Temperature Source Pulse Rate 79 75 Respiratory Rate 11 L 18 Respiratory Effort Respiratory Pattern Blood Pressure 110/67 108/72 Blood Pressure Mean 81 84 Pulse Ox 92 97 Oxygen Delivery Method Room Air Room Air Positive well nourished and well developed General Appearance ED: well developed and NAD HEENT Reports TM's clear and moist mucous membranes normocephalic and atraumatic; Negative for trauma or tenderness Tympanic Membrane ED: Yes TM's clear Eyes PERRL and EOMs intact bilaterally General Eye ED: Negative for pale conjunctiva or scleral icterus Neck no lymphadenopathy, supple and no JVD General: Negative for tenderness Chest Wall inspection of chest normal and palpation of chest normal Chest: Negative for tenderness Resp normal respiratory effort and clear to auscultation bilaterally Effort and Inspection: Negative for respiratory distress or pain with movement Auscultation: Negative for rhonchi, wheezes or diminished lung sounds Cardio regular rate, regular rhythm, S1 normal heart sound, S2 normal heart sound and no murmurs Peripheral Pulses: pulses 2+ throughout GI normal to inspection, nondistended, normoactive bowel sounds, soft to palpation, non-tender, non-distended and no masses Back/Spine no CVA tenderness and no thoracic nor lumbar tenderness Extremity normal to inspection General Extremety ED: Negative for edema General Extremity: Negative for edema Neuro oriented x3, CN's II-XII intact bilaterally, no sensory deficits noted and gait normal Sensorium / Orientation: awake, alert, oriented to person, oriented to place and oriented to time Motor Exam: strength 5/5 throughout and strength abnormal Psych mental status grossly normal Skin no rashes or lesions noted and no wounds MDM MDM MDM Narrative Medical decision making narrative: Patient presents needing replacement batteries for his pacemaker. Discussed case with patient's form press operator Dr. Michaud who asked that we obtain some basic labs. Patient will go to [facility] for procedure to replace his pacer batteries. Lab workup was unremarkable. EKG obtained on arrival showed a paced rhythm with rate of 81 bpm with PVCs. Lab Data Attestation: I reviewed the patient's lab results. Labs: Laboratory Results - last 24 hr 04/15/23 09:55 WBC 5.7 RBC 4.18 L Hgb 12.5 L Hct 38.6 L MCV 92.3 MCH 29.9 MCHC 32.4 RDW Std Deviation 45.1 H RDW Coeff of Jeremiah 13.2 Plt Count 142 L MPV 10.3 Immature Gran % (Auto) 0.200 Neut % (Auto) 68.4 Lymph % (Auto) 19.3 [place] % (Auto) 9.5 Eos % (Auto) 2.1 Baso % (Auto) 0.5 Absolute Neuts (auto) 3.9 Absolute Lymphs (auto) 1.09 Nucleated RBC % 0 Sodium 141 Potassium 3.3 L Chloride 106 Carbon Dioxide 29.0 Anion Gap 6 BUN 20 H Creatinine 1.02 Estim Creat Clear Calc 50.06 Est GFR (MDRD) Af Amer 89 Est GFR (MDRD) Non-Af 73 BUN/Creatinine Ratio 19.6 Glucose 106 Calcium 9.2 EKG Initial EKG: Attestation: I personally reviewed and interpreted this EKG as follows: Comments: Ventricularly paced rhythm with rate of 81 bpm with PVCs. Discharge Plan Dx/Rx/DC Orders Clinical Impression: Dizziness, Encounter for care of pacemaker Disposition Disposition: Acute Care Hospital [facility] Discharge Date/Time: 04/15/23 11:39
[2023-04-15 10:05] LABS: Absolute Lymphocyte Count 1.09 X10^3/uL (0.83-4.51); Absolute Neutrophil Count 3.9 X10^3/uL (2.0-7.7); Basophil# 0.03 X10^3/uL; Basophil% 0.5 % (0-1); Eosinophil# 0.12 X10^3/uL; Eosinophils% 2.1 % (0-5); Hematocrit 38.6 % (40-54); Hemoglobin 12.5 g/dL (13.0-16.5); Lymphocyte # 1.09 X10^3/ul (0.83-4.51); Lymphocyte % 19.3 % (19-41); Mean Corp Hgb Conc 32.4 g/dL (32-36); Mean Corpuscular Hgb 29.9 pg (27.0-32.0); Mean Corpuscular Volume 92.3 fL (80-94); Mean Platelet Vol. 10.3 fl (6.2-12.0); Monocyte# 0.54 X10^3/uL; Monocyte% 9.5 % (0-10); NRBC Flagged by Analyzer 0 % (0-5); Neutrophil # 3.87 X10^3/uL (2.7-7.7); Neutrophil % 68.4 % (47-70); Platelet Count 142 K/mm3 (150-450); RBC Distribution Width CV 13.2 % (11.6-14.6); RBC Distribution Width SD 45.1 fl (35.1-43.9); Red Blood Count 4.18 M/mm3 (4.6-6.2); White Blood Count 5.7 K/mm3 (4.4-11.0)
[2023-04-15] MEDS: 0.9% Normal Saline (1000mL) 1,000 ML 150 ML IV (10:13)
[2023-04-15 10:21] LABS: Anion Gap 6 (5-15); BUN 20 mg/dL (7-18); BUN/Creat Ratio 19.6 RATIO (10-20); Calcium,Total 9.2 mg/dL (8.5-10.1); Chloride 106 mmol/L (98-107); Creatinine, Serum 1.02 mg/dL (0.70-1.30); EST Glomerular Filtration Rate 73 mL/min (>60); Est Glom Filt Rate - Afr Amer 89 mL/min (>60); Estimated Creatinine Clearance 50.06 ml/min; Glucose 106 mg/dL (74-106); Potassium 3.3 mmol/L (3.5-5.1); Sodium Level 141 mmol/L (136-145)
[2023-04-15 10:35] VITALS: BP 110/67; PULSE 79; RESP 11; O2SAT 92
--- NOTE | 2023-04-15 10:46 | CON.PCM.CA_ITS ---
Assessment & Plan Assessment/Plan (1) Encounter for care of pacemaker: PLAN: Patient has a permanent pacemaker which is at end-of-life replacement index. This will need to be replaced out urgently. The risk benefits alternatives have been explained to him he understands and agrees to proceed. (2) Essential (primary) hypertension: PLAN: He does have a history of hypertension which is under good control at this particular time. I would not recommend we make any changes. HPI Consult Data Date of Consult: 04/15/23 HPI Narrative HPI Narrative: EMMANUEL MARIE, is a 87 M who presents to the emergency room after we called him from the office because there was an alert on his permanent pacemaker. He is a gentleman with a history of atrial fibrillation, hypertension, sick sinus syndrome status post permanent pacemaker implantation. He also has a history of obstructive sleep apnea and utilizes a CPAP machine. He was recently admitted to the transitional care unit after he suffered a hamstring injury and was in the hospital. He has been seen and being scheduled for an urgent pacemaker placement due to the alert. He denies any neck arm or jaw discomfort to suggest angina no dizziness or diaphoresis no near syncope or syncope. [facility] Medical History Bradycardia Essential (primary) hypertension Former smoker Hyperlipidemia Obstructive sleep apnea Osteoporosis Paroxysmal ventricular tachycardia Premature ventricular contractions 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 Home Medications multivitamin with folic acid 400 mcg tablet 1 tab PO DAILY vitamin 01/18/13 [History Last Taken 07/26/18] nitroglycerin 0.4 mg sublingual tablet 0.4 mg sublingual Q5M PRN Chest Pain 01/18/13 [History Last Taken 07/26/18] latanoprost 0.005 % eye drops 1 drp ophthalmic (eye) QHS eyes 30 days #2 mL 0 04/10/21 [History Last Taken Unknown] apixaban 5 mg tablet (Eliquis) 5 mg PO BID blood thinner 09/06/22 [History Last Taken Unknown] hydrochlorothiazide 25 mg tablet 25 mg PO QDAY water/BP 09/06/22 [History Last Taken Unknown] metoprolol succinate 50 mg tablet,extended release 24 hr 50 mg PO QDAY BP 09/06/22 [History Last Taken Unknown] pravastatin 40 mg tablet 40 mg PO QHS cholesterol 09/06/22 [History Last Taken Unknown] acetaminophen 500 mg tablet 1,000 mg (2 x 500 mg) PO Q6H PRN Pain Score 1-5 #0 tabs 09/16/22 [Rx Last Taken Unknown] Allergy/AdvReac Type Severity Reaction Status Date / Time No Known Allergies Allergy Verified 04/15/23 09:35 Family History Father , age 77 Cancer larynx and prostate Surgical History Cardiac pacemaker in situ (01/2013) Social History household members: none Smoking Status: Former smoker how long ago did patient quit smokin alcohol intake: current alcohol intake frequency: a few times a week Alcohol type: wine substance use type: does not use caffeine: No ROS Constitutional Constitutional: Denies chills, fever(s) or weight gain ENT HEENT: Denies headache(s), nasal congestion or nasal discharge Cardiovascular Cardiovascular: Denies chest pain or palpitations Respiratory/Chest Respiratory/Chest: Denies cough, excessive phlegm production or shortness of breath with exertion Gastrointestinal Gastrointestinal: Denies abdominal pain, nausea or vomiting Genitourinary Genitourinary: Denies dysuria Musculoskeletal Musculoskeletal: Reports other Details: Right hamstring pain. ; Denies joint pain or joint swelling Integumentary Integumentary: Denies rash or wounds Neurologic Neurologic: Denies focal weakness, numbness or tingling Psychiatric Psychiatric: Denies anxiety, auditory hallucinations, depression, homicidal ideation or suicidal ideation Physical Exam Const alert, oriented x3 and no apparent distress General Appearance: cooperative HEENT hearing grossly normal bilaterally Head and Scalp: atraumatic Eyes EOMs intact bilaterally Neck General: normal visual inspection Chest inspection of chest normal and palpation of chest normal Resp normal respiratory effort Auscultation: clear to auscultation bilaterally Cardio regular rate, regular rhythm, S1 normal heart sound and S2 normal heart sound Jugular Venous Distention: JVD GI normal to inspection, nondistended, normoactive bowel sounds Extremity normal capillary refill and no pedal edema Peripheral Pulses: Yes pulses 2+ throughout and femoral pulses present Skin no rashes or lesions noted Neuro oriented x3 and CN's II-XII intact bilaterally Psych Appearance: grossly normal and appropriate Risk Stratification Risk Stratification Applicable: No Objective Data Vital Signs: Vital Signs Temp Pulse Resp BP Pulse Ox O2 Del Method 98.3 F 73 14 128/72 H 96 Room Air 04/15/23 09:36 04/15/23 09:36 04/15/23 09:36 04/15/23 09:36 04/15/23 09:36 04/15/23 09:36 Oxygen Delivery Method Room Air Weight: 184 lb 8.43 oz Body Mass Index (BMI) 27.2 Lab / Micro Data 04/15/23 09:55 04/15/23 09:55 Labs: Laboratory Results - last 24 hr 04/15/23 09:55: WBC 5.7, RBC 4.18 L, Hgb 12.5 L, Hct 38.6 L, MCV 92.3, MCH 29.9, MCHC 32.4, RDW Std Deviation 45.1 H, RDW Coeff of Jeremiah 13.2, Plt Count 142 L, MPV 10.3, Immature Gran % (Auto) 0.200, Neut % (Auto) 68.4, Lymph % (Auto) 19.3, [place] % (Auto) 9.5, Eos % (Auto) 2.1, Baso % (Auto) 0.5, Absolute Neuts (auto) 3.9, Absolute Lymphs (auto) 1.09, Nucleated RBC % 0, Sodium 141, Potassium 3.3 L , Chloride 106, Carbon Dioxide 29.0, Anion Gap 6, BUN 20 H, Creatinine 1.02, Estim Creat Clear Calc 50.06, Est GFR (MDRD) Af Amer 89, Est GFR (MDRD) Non-Af 73, BUN/Creatinine Ratio 19.6, Glucose 106, Calcium 9.2 Cardiology Labs/Tests 04/15/23 09:55: WBC 5.7, RBC 4.18 L, Hgb 12.5 L, Hct 38.6 L, MCV 92.3, MCH 29.9, MCHC 32.4, Plt Count 142 L, MPV 10.3, Immature Gran % (Auto) 0.200, Neut % (Auto) 68.4, Lymph % (Auto) 19.3, [place] % (Auto) 9.5, Eos % (Auto) 2.1, Baso % (Auto) 0.5, Absolute Neuts (auto) 3.9, Nucleated RBC % 0, Sodium 141, Potassium 3.3 L, Chloride 106, Carbon Dioxide 29.0, Anion Gap 6, BUN 20 H, Creatinine 1.02, Est GFR (MDRD) Af Amer 89, Est GFR (MDRD) Non-Af 73, BUN/Creatinine Ratio 19.6, Glucose 106, Calcium 9.2 Rhythm: EKG: ECHO: Stress Test: Cardiac Cath: PCI: CT Surgery: Holter monitor: EPS: PPM: CXR: Chest CT Scan:
[2023-04-15 11:00] VITALS: BP 108/72; PULSE 75; RESP 18; O2SAT 97
[2023-04-15] MEDS: Potassium Chloride Oral Tablet 20 MEQ 40 MEQ PO (11:05)
--- OUTSIDE RECORDS SUMMARY | 2023-04-15 11:32 | XMS RPT_ITS | CCD ---
Author Name Unknown Address [address] [place] [address] Organization [facility] Care Team Providers Care Supervisor Telephone Clerks Name Role Phone ESPERANZA Barnes, Sirisha Shaw Unavailable Unavailable ESPERANZA Barnes, Sirisha Shaw Unavailable Unavailable ESPERANZA Barnes, Sirisha Shaw Unavailable Unavailable ESPERANZA Barnes, Sirisha Shaw Unavailable Unavailable ESPERANZA Barnes, Sirisha Shaw Unavailable Unavailable ESPERANZA Barnes, Sirisha Shaw Unavailable Unavailable ESPERANZA Barnes, Sirisha Shaw Unavailable Unavailable ESPERANZA Barnes, Sirisha Shaw Unavailable Unavailable NAMRATA MATHEW, CLAUDY Jay Primary Care Physician Medications Current Medications Medication Drug Class(es) Dates Sig (Normalized) Sig (Original) apixaban 5 mg oral tablet (10 sources) Factor Xa Inhibitor Start: 11-01-2018 Eliquis 5 mg oral tablet Dose : 5 mg = 1 tab(s), Oral, BID, 0 Refill(s) Start Date: 11/01/18 Status: Ordered Completed/Discontinued Medications Medication Drug Class(es) Dates Sig (Normalized) Sig (Original) ascorbic acid 500 mg oral tablet (16 sources) Vitamin C Start: 09-17-2011 End: 10-11-2013 take 1 tablet by mouth once daily VITAMIN C 500 MG TABS One tablet by mouth daily ASCORBIC ACID [id number] Darcie Patrick PA-C aspirin 81 mg oral tablet (16 sources) Platelet Aggregation Inhibitor, Nonsteroidal Anti-inflammatory Drug Start: 11-04-2010 End: 04-19-2015 take 1 tablet by mouth once daily ASPIRIN 81 MG TABS One tablet by mouth daily ASPIRIN [id number] Cal Michaud MD Problems Active Problems Problem Classification Problem Date Documented Da te Episodic/Chronic Anxiety disorders (2 sources) Anxiety disorder 11-01-2018 Chronic Cardiac dysrhythmias (20 sources) Bradycardia; Translations: [Paroxysmal atrial fibrillation] Onset: 11-04-2010 01-14-2013 Chronic Conduction disorders (20 sources) Cardiac pacemaker in situ; Translations: [Atrioventricular block] Onset: 11-04-2010 01-24-2013 Chronic Congestive heart failure; nonhypertensive (2 sources) 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 Past or Other Problems Problem Classification Problem Date Documented Da te Episodic/Chronic Other lower respiratory disease (8 sources) Dyspnea; Translations: [Shortness of breath] Onset: 11-04-2010 11-04-2010 Episodic Other nutritional; endocrine; and metabolic disorders (16 sources) Body mass index (BMI) 29.0-29.9, adult; Translations: [Body mass index (BMI) 29.0-29.9, adult] Onset: 01-17-2013 10-09-2014 Episodic Results Test Name Value Interpretation Reference Range Facil ity Vital Signs Date Time Vital Sign Value Performing Clinician Levi cason 10-20-2016 08:53-0400 BMI (Body Mass Index) 29.93 kg/m2 ESPERANZA [facility] Work Phone: 10-20-2016 08:53-0400 BP Diastolic 68 mm[Hg] ESPERANZA [facility] Work Phone: 10-20-2016 08:53-0400 BP Systolic 130 mm[Hg] ESPERANZA [facility] Work Phone: 10-20-2016 08:53-0400 Height 177.8 cm ESPERANZA [facility] Work Phone: 10-20-2016 08:53-0400 Pulse (Heart Rate) 60 /min ESPERANZA [facility] Work Phone: 10-20-2016 08:53-0400 Respiratory Rate 20 /min ESPERANZA [facility] Work Phone: 10-20-2016 08:53-0400 Weight 94.62 kg ESPERANZA [facility] Work Phone: 04-11-2016 11:45-0500 BMI (Body Mass Index) 30.13 kg/m2 ESPERANZA [facility] Work Phone: 04-11-2016 11:45-0500 BP Diastolic 70 mm[Hg] Sirisha Barnes RN [facility] Work Phone: 04-11-2016 11:45-0500 BP Systolic 124 mm[Hg] ESPERANZA [facility] Work Phone: 04-11-2016 11:45-0500 BSA (Body Surface Area) 2.13 m2 ESPERANZA [facility] Work Phone: 04-11-2016 11:45-0500 Height 177.8 cm ESPERANZA [facility] Work Phone: 04-11-2016 11:45-0500 Pulse (Heart Rate) 64 /min ESPERANZA [facility] Work Phone: 04-11-2016 11:45-0500 Respiratory Rate 18 /min Sirisha Barnes RN [facility] Work Phone: 04-11-2016 11:45-0500 Weight 95.26 kg Sirisha Barnes RN [facility] Work Phone: 01-17-2013 11:08-0400 Heart rate 39 /min ESPERANZA [facility] Work Phone: 01-14-2013 12:21-0400 Heart rate 431 ms Sirisha Barnes RN [facility] Work Phone: Encounters Encounter Date Encounter Type Care Provider Facility Start: 09-06-2021 End: 09-06-2021 Patient encounter procedure CLAUDY OTT MD [facility] Start: 07-22-2021 End: 07-22-2021 Patient encounter procedure CLAUDY OTT MD [facility] Procedures Date Procedure Procedure Detail Performing Clinician Start: 01-29-2017 End: 02-01-2017 Program eval implantable in persn dual ld pacer Cal Michaud MD Start: 10-20-2016 End: 10-20-2016 Program eval implantable in persn dual ld pacer Darcie Patrick PA-C Work Phone: Start: 10-20-2016 End: 10-20-2016 Dietary management education, guidance, and counseling Sirisha Barnes RN Start: 10-20-2016 End: 10-20-2016 Pm device progr eval, dual Darcie Humphreys PA-C Work Phone: Start: 06-11-2016 End: 06-12-2016 Interrogation eval remote 90 d 1/2/aoc operations intelligence chief lead pm Darcie Patrick PA-C Work Phone: Start: 06-11-2016 End: 06-12-2016 Pm device interrogate remote Darcie Patrick PA-C Work Phone: Start: 04-28-2016 End: 04-28-2016 Interrogation eval remote 90 d 1/2/aoc operations intelligence chief lead pm Darcie Patrick PA-C Work Phone: Start: 04-28-2016 End: 04-28-2016 Pm device interrogate remote Darcie Patrick PA-C Work Phone: Start: 04-11-2016 End: 04-11-2016 Follow Up Appt 6 months Valeria Lipscomb Start: 04-11-2016 End: 04-11-2016 MMValeria Michaud MD Start: 04-11-2016 End: 04-11-2016 Dietary management education, guidance, and counseling Sirisha Barnes RN Start: 04-11-2016 End: 04-11-2016 Follow Up Appt 6 months Valeria Lipscomb Start: 04-11-2016 End: 04-11-2016 SHE Michaud MD Start: 03-26-2016 End: 04-11-2016 Follow Up Appt 3 months Darcie rogers PA-C Work Phone: Start: 03-26-2016 End: 04-02-2016 Interrogation eval remote 90 d 1/2/aoc operations intelligence chief lead pm Darcie Patrick PA-C Work Phone: Start: 03-26-2016 End: 04-11-2016 [facility] Clinic Darcie Patrick PA-C Work Phone: Start: 03-26-2016 End: 04-11-2016 Follow Up Appt 3 months Darcie rogers PA-C Work Phone: Start: 03-26-2016 End: 04-11-2016 Pac[facility] Clinic Darcie Patrick PA-C Work Phone: Start: 03-26-2016 End: 04-02-2016 Pm device interrogate remote Darcie Patrick PA-C Work Phone: Start: 01-28-2016 End: 01-28-2016 Interrogation eval remote 90 d 1/2/aoc operations intelligence chief lead pm Kiko Camargo MD Start: 01-28-2016 End: 01-28-2016 Pm device interrogate remote Kiko Camargo MD Start: 11-16-2015 End: 11-16-2015 ANTHONY Patrick PA-C Work Phone: Start: 11-16-2015 End: 11-16-2015 Follow Up Appt 6 months Darcie rogers PA-C Work Phone: Start: 11-16-2015 End: 11-16-2015 ANTHONY Patrick PA-C Work Phone: Start: 11-16-2015 End: 11-16-2015 Follow Up Appt 6 months Darcie rogers PA-C Work Phone: Start: 10-22-2015 End: 11-06-2015 Follow Up Appt 3 months Kiko Camargo MD Start: 10-22-2015 End: 10-22-2015 Interrogation eval remote 90 d 1/2/aoc operations intelligence chief lead pm Kiko Camargo MD Start: 10-22-2015 End: 11-06-2015 Pacer Clinic Kiko Camargo MD Start: 10-22-2015 End: 11-06-2015 Follow Up Appt 3 months Kiko Camargo MD Start: 10-22-2015 End: 11-06-2015 Pacer Clinic Kiko Camargo MD Start: 10-22-2015 End: 10-22-2015 Pm device interrogate remote Kiko Camargo MD Start: 07-23-2015 End: 11-06-2015 Follow Up Appt 3 months Darcie rogers PA-C Work Phone: Start: 07-23-2015 End: 07-23-2015 Interrogation eval remote 90 d 1/2/aoc operations intelligence chief lead pm Darcie Patrick PA-C Work Phone: Start: 07-23-2015 End: 11-06-2015 Pac[facility] Clinic Darcie Patrick PA-C Work Phone: Start: 07-23-2015 End: 11-06-2015 Follow Up Appt 3 months Darcie rogers PA-C Work Phone: Start: 07-23-2015 End: 11-06-2015 [facility] Clinic Darcie Patrick PA-C Work Phone: Start: 07-23-2015 End: 07-23-2015 Pm device interrogate remote Darcie Patrick PA-C Work Phone: Start: 04-19-2015 End: 11-06-2015 Follow Up Appt 3 months Valeria Lipscomb Start: 04-19-2015 End: 04-19-2015 Follow Up Appt 6 months Valeria Lipscomb Start: 04-19-2015 End: 04-19-2015 MMM Cal Michaud MD Start: 04-19-2015 End: 11-06-2015 Pacer Clinic Cal Michaud MD Start: 04-19-2015 End: 04-20-2015 Program eval implantable in persn dual ld pacer Cal Michaud MD Start: 04-19-2015 End: 11-06-2015 Follow Up Appt 3 months Valeria Lipscomb Start: 04-19-2015 End: 04-19-2015 Follow Up Appt 6 months Valeria Lipscomb Start: 04-19-2015 End: 04-19-2015 SHE Michaud MD Start: 04-19-2015 End: 11-06-2015 Pacer Clinic Cal Michaud MD Start: 04-19-2015 End: 04-20-2015 Pm device progr eval, dual Cal Michaud MD Start: 01-15-2015 End: 11-06-2015 Follow Up Appt 3 months Darcie rogers PA-C Work Phone: Start: 01-15-2015 End: 01-16-2015 Interrogation eval remote 90 d 1/2/aoc operations intelligence chief lead pm Darcie Patrick PA-C Work Phone: Start: 01-15-2015 End: 11-06-2015 [facility] Clinic Darcie Patrick PA-C Work Phone: Start: 01-15-2015 End: 11-06-2015 Follow Up Appt 3 months Darcie rogers PA-C Work Phone: Start: 01-15-2015 End: 11-06-2015 Pac[facility] Clinic Darcie Patrick PA-C Work Phone: Start: 01-15-2015 End: 01-16-2015 Pm device interrogate remote Darcie Patrick PA-C Work Phone: Start: 10-16-2014 End: 11-06-2015 Follow Up Appt 3 months Valeria Lipscomb Start: 10-16-2014 End: 10-16-2014 Interrogation eval remote 90 d //aoc operations intelligence chief lead pm Cal Michaud MD Start: 10-16-2014 End: 11-06-2015 Pacer Clinic Cal Michaud MD Start: 10-16-2014 End: 11-06-2015 Follow Up Appt 3 months Valeria Lipscomb Start: 10-16-2014 End: 11-06-2015 Pacer Clinic Cal Michaud MD Start: 10-16-2014 End: 10-16-2014 Pm device interrogate remote Cal Michaud MD Start: 10-09-2014 End: 10-09-2014 ANTHONY Michaud MD Start: 10-09-2014 End: 10-10-2014 Documentation of current medications Darcie Patrick PA-C Work Phone: Start: 10-09-2014 End: 10-09-2014 Follow Up Appt 6 months Valeria Lipscomb Start: 10-09-2014 End: 10-09-2014 ANTHONY Michaud MD Start: 10-09-2014 End: 10-10-2014 Documentation of current medications Darcie Patrick PA-C Work Phone: Start: 10-09-2014 End: 10-09-2014 Follow Up Appt 6 months Valeria Lipscomb Start: 07-17-2014 End: 10-04-2014 Follow Up Appt 3 months Valeria Lipscomb Start: 07-17-2014 End: 07-17-2014 Interrogation eval remote 90 d 1/2/aoc operations intelligence chief lead pm Cal Michaud MD Start: 07-17-2014 End: 10-04-2014 Pacer Clinic Cal Michaud MD Start: 07-17-2014 End: 10-04-2014 Follow Up Appt 3 months Valeria Lipscomb Start: 07-17-2014 End: 10-04-2014 Pacer Clinic Cal Michaud MD Start: 07-17-2014 End: 07-17-2014 Pm device interrogate remote Cal Michaud MD Start: 04-13-2014 End: 10-04-2014 Follow Up Appt 3 months Valeria Lipscomb Start: 04-13-2014 End: 04-13-2014 Interrogation eval remote 90 d 1/2/aoc operations intelligence chief lead pm Cal Michaud MD Start: 04-13-2014 End: 10-04-2014 Pacer Clinic Cal Michaud MD Start: 04-13-2014 End: 10-04-2014 Follow Up Appt 3 months Valeria Lipscomb Start: 04-13-2014 End: 10-04-2014 Pacer Clinic Cal Michaud MD Start: 04-13-2014 End: 04-13-2014 Pm device interrogate remote Cal Michaud MD Start: 04-11-2014 End: 04-11-2014 Follow Up Appt 6 months Valeria Lipscomb Start: 04-11-2014 End: 04-11-2014 SHE Michaud MD Start: 04-11-2014 End: 04-11-2014 Follow Up Appt 6 months Valeria Lipscomb Start: 04-11-2014 End: 04-11-2014 SHE Michaud MD Start: 03-09-2014 End: 03-09-2014 Follow Up BP Check Cal Michaud MD Start: 03-09-2014 End: 03-09-2014 Follow Up BP Check Cal Michaud MD Start: 12-22-2013 End: 10-04-2014 Follow Up Appt 3 months Darcie rogers PA-C Work Phone: Start: 12-22-2013 End: 12-22-2013 Interrogation eval remote 90 d /2/aoc operations intelligence chief lead pm Darcie Patrick PA-C Work Phone: Start: 12-22-2013 End: 10-04-2014 Pac[facility] Clinic Darcie Patrick PA-C Work Phone: Start: 12-22-2013 End: 10-04-2014 Follow Up Appt 3 months Darcie rogers PA-C Work Phone: Start: 12-22-2013 End: 10-04-2014 Pacer Clinic Darcie Patrick PA-C Work Phone: Start: 12-22-2013 End: 12-22-2013 Pm device interrogate remote Darcie Patrick PA-C Work Phone: Start: 10-11-2013 End: 10-11-2013 ANTHONY Patrick PA-C Work Phone: Start: 10-11-2013 End: 10-11-2013 Follow Up Appt 6 months Darcie rogers PA-C Work Phone: Start: 10-11-2013 End: 10-11-2013 ANTHONY Patrick PA-C Work Phone: Start: 10-11-2013 End: 10-11-2013 Follow Up Appt 6 months Darcie rogers PA-C Work Phone: Start: 09-15-2013 End: 09-28-2013 Follow Up Appt 3 months Valeria Lipscomb Start: 09-15-2013 End: 09-15-2013 Interrogation eval remote 90 d //aoc operations intelligence chief lead pm Cal Michaud MD Start: 09-15-2013 End: 09-28-2013 Pacer Clinic Cal Michaud MD Start: 09-15-2013 End: 09-28-2013 Follow Up Appt 3 months Valeria Lipscomb Start: 09-15-2013 End: 09-28-2013 Pacer Clinic Cal Michaud MD Start: 09-15-2013 End: 09-15-2013 Pm device interrogate remote Cal Michaud MD Start: 06-09-2013 End: 09-28-2013 Follow Up Appt 3 months Valeria Lipscomb Start: 06-09-2013 End: 09-28-2013 Pacer Clinic Cal Michaud MD Start: 06-09-2013 End: 06-09-2013 Program eval implantable in persn dual ld pacer Cal S Keily, MD Start: 06-09-2013 End: 09-28-2013 Follow Up Appt 3 months Valeria Lipscomb Start: 06-09-2013 End: 09-28-2013 Pacer Clinic Cal Michaud MD Start: 06-09-2013 End: 06-09-2013 Pm device progr summeral, dual Cal Michaud MD Start: 04-14-2013 End: 04-14-2013 Follow Up Appt 6 months Valeria Lipscomb Start: 04-14-2013 End: 04-14-2013 MMValeria Michaud MD Start: 04-14-2013 End: 04-14-2013 Follow Up Appt 6 months Valeria Lipscomb Start: 04-14-2013 End: 04-14-2013 MMValeria Michaud MD Start: 03-08-2013 End: 09-28-2013 Follow Up Appt 3 months Valeria Lipscomb Start: 03-08-2013 End: 09-28-2013 Pacer Clinic Cal Michaud MD Start: 03-08-2013 End: 03-08-2013 Program eval implantable in persn dual ld pacer Cal Michaud MD Start: 03-08-2013 End: 09-28-2013 Follow Up Appt 3 months Valeria Lipscomb Start: 03-08-2013 End: 09-28-2013 Pacer Clinic Cal Michaud MD Start: 03-08-2013 End: 03-08-2013 Pm device progr eval, dual Cal Michaud MD Start: 02-04-2013 End: 02-04-2013 Nurse, Teaching, Wound Check (no charge) Cal Michaud MD Start: 02-04-2013 End: 02-04-2013 Nurse, Teaching, Wound Check (no charge) Cal Michaud MD Start: 02-01-2013 End: 02-01-2013 Nurse, Teaching, Wound Check (no charge) Cal Michaud MD Start: 02-01-2013 End: 02-01-2013 Nurse, Teaching, Wound Check (no charge) Cal Michaud MD Start: 01-24-2013 End: 09-28-2013 Follow Up Appt 1 month Cal Michaud MD Start: 01-24-2013 End: 01-24-2013 Nurse, Teaching, Wound Check (no charge) Cal Michaud MD Start: 01-24-2013 End: 09-28-2013 Pacer Clinic Cal Michaud MD Start: 01-24-2013 End: 09-28-2013 Follow Up Appt 1 month Cal Michaud MD Start: 01-24-2013 End: 01-24-2013 Nurse, Teaching, Wound Check (no charge) Cal Michaud MD Start: 01-24-2013 End: 09-28-2013 Pacer Clinic Cal Michaud MD Start: 01-17-2013 End: 09-28-2013 *BMP Cal Michaud MD Start: 01-17-2013 End: 09-28-2013 *UA - Urinalysis w/o Micro Cal Michaud MD Start: 01-17-2013 End: 09-28-2013 CBC W Auto Differential panel - Blood Cal Michaud MD Start: 01-17-2013 End: 09-28-2013 Chest x-ray Cal Michaud MD Start: 01-17-2013 End: 09-28-2013 Ecg routine ecg w/least 12 lds w/i&r Cal Michaud MD Start: 01-17-2013 End: 09-28-2013 Follow Up Appt 6 weeks Cal Michaud MD Start: 01-17-2013 End: 09-28-2013 INR in Platelet poor plasma by Coagulation assay Cal Michaud MD Start: 01-17-2013 End: 09-28-2013 MMM Cal Michaud MD Start: 01-17-2013 End: 01-17-2013 Nurse, Teaching, Wound Check (no charge) Cal Michaud MD Start: 01-17-2013 End: 09-28-2013 Pacemaker Primary Insertion Cal Arizmendi i, MD Start: 01-17-2013 End: 09-28-2013 *BMP Cal Michaud MD Start: 01-17-2013 End: 09-28-2013 *UA - Urinalysis w/o Micro Cal Michaud MD Start: 01-17-2013 End: 09-28-2013 CBC W Auto Differential panel - Blood Cal Michaud MD Start: 01-17-2013 End: 09-28-2013 Chest x-ray Cal Michaud MD Start: 01-17-2013 End: 09-28-2013 Coagulation factor induced.INR assay in platelet poor plasma Cal Michaud MD Start: 01-17-2013 End: 09-28-2013 Electrocardiogram, complete Cal Arizmendi i, MD Start: 01-17-2013 End: 09-28-2013 Follow Up Appt 6 weeks Cal Michaud MD Start: 01-17-2013 End: 09-28-2013 MMM Cal Michaud MD Start: 01-17-2013 End: 01-17-2013 Nurse, Teaching, Wound Check (no charge) Cal Michaud MD Start: 01-17-2013 End: 09-28-2013 Pacemaker Primary Insertion Cal Arizmendi i, MD Start: 01-14-2013 End: 01-14-2013 Ecg routine ecg w/least 12 lds w/i&r Cal Michaud MD Start: 01-14-2013 End: 01-14-2013 Electrocardiogram, complete Cal Arizmendi i, MD Start: 04-06-2012 Dual chamber pulse generator, device (physical object) CLAUDY OTT MD Start: 03-24-2012 End: 03-24-2012 Ecg routine ecg w/least 12 lds w/i&r Cal Michaud MD Start: 03-24-2012 End: 03-24-2012 Follow Up Appt 1 year Cal Michaud MD Start: 03-24-2012 End: 03-24-2012 Electrocardiogram, complete Cal Arizmendi i, MD Start: 03-24-2012 End: 03-24-2012 Follow Up Appt 1 year Cal Michaud MD Start: 09-17-2011 End: 09-17-2011 Follow Up Appt 6 months Valeria Lipscomb Start: 09-17-2011 End: 09-17-2011 Follow Up Appt 6 months Valeria Lipscomb Removal of mole of s kin by excision CLAUDY OTT MD Plan of Treatment Date Care Activity Detail Author Start: 05-04-2017 End: 05-04-2017 Appointment Appointment [facility] Work Phone: Start: 04-23-2017 End: 04-23-2017 Appointment Appointment [facility] Work Phone: Start: 01-29-2017 End: 02-01-2017 Follow Up Appt 3 months Follow Up Appt 3 months [facility] Work Phone: Start: 01-29-2017 End: 02-01-2017 [facility] Work Phone: Start: 01-29-2017 End: 01-29-2017 Appointment Appointment [facility] Work Phone: Start: 10-20-2016 End: 10-20-2016 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 [facility] Work Phone: Start: 10-20-2016 End: 10-20-2016 Follow Up Appt 3 months Follow Up Appt 3 months [facility] Work Phone: Start: 10-20-2016 End: 10-20-2016 Follow Up Appt 6 months Follow Up Appt 6 months [facility] Work Phone: Start: 10-20-2016 End: 10-20-2016 Pacer Clinic [facility] Work Phone: Start: 10-20-2016 End: 10-20-2016 Appointment Appointment [facility] Work Phone: Start: 10-20-2016 End: 10-20-2016 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 [facility] Work Phone: Start: 10-20-2016 End: 10-20-2016 Follow Up Appt 3 months Follow Up Appt 3 months [facility] Work Phone: Start: 10-20-2016 End: 10-20-2016 Follow Up Appt 6 months Follow Up Appt 6 months [facility] Work Phone: Start: 10-20-2016 End: 10-20-2016 Pacer Clinic [facility] Work Phone: Start: 06-11-2016 End: 06-12-2016 Follow Up Appt 3 months Follow Up Appt 3 months [facility] Work Phone: Start: 06-11-2016 End: 06-12-2016 Pac[facility] Clinic [facility] Work Phone: Start: 06-11-2016 End: 06-12-2016 Follow Up Appt 3 months Follow Up Appt 3 months [facility] Work Phone: Start: 06-11-2016 End: 06-12-2016 Pacer Clinic [facility] Work Phone: Start: 04-28-2016 End: 04-28-2016 Follow Up Appt 3 months Follow Up Appt 3 months [facility] Work Phone: Start: 04-28-2016 End: 04-28-2016 [facility] Clinic [facility] Work Phone: Start: 04-28-2016 End: 04-28-2016 Follow Up Appt 3 months Follow Up Appt 3 months [facility] Work Phone: Start: 04-28-2016 End: 04-28-2016 Pac[facility] Clinic [facility] Work Phone: Start: 04-11-2016 End: 04-11-2016 Follow Up Appt 6 months Follow Up Appt 6 months [facility] Work Phone: Start: 04-11-2016 End: 04-11-2016 MMM MMM [facility] Work Phone: Start: 04-11-2016 End: 04-11-2016 Follow Up Appt 6 months Follow Up Appt 6 months [facility] Work Phone: Start: 04-11-2016 End: 04-11-2016 MMM MMM [facility] Work Phone: Start: 03-26-2016 End: 04-11-2016 Follow Up Appt 3 months Follow Up Appt 3 months [facility] Work Phone: Start: 03-26-2016 End: 04-11-2016 Pac[facility] Clinic [facility] Work Phone: Start: 03-26-2016 End: 04-11-2016 Follow Up Appt 3 months Follow Up Appt 3 months [facility] Work Phone: Start: 03-26-2016 End: 04-11-2016 Pacer Clinic [facility] Work Phone: Start: 01-28-2016 End: 01-28-2016 Follow Up Appt 3 months Follow Up Appt 3 months [facility] Work Phone: Start: 01-28-2016 End: 01-28-2016 [facility] Clinic [facility] Work Phone: Start: 01-28-2016 End: 01-28-2016 Follow Up Appt 3 months Follow Up Appt 3 months [facility] Work Phone: Start: 01-28-2016 End: 01-28-2016 [facility] Clinic [facility] Work Phone: Start: 11-16-2015 End: 11-16-2015 [facility] Work Phone: Start: 11-16-2015 End: 11-16-2015 Follow Up Appt 6 months Follow Up Appt 6 months [facility] Work Phone: Start: 11-16-2015 End: 11-16-2015 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 [facility] Work Phone: Start: 11-16-2015 End: 11-16-2015 Follow Up Appt 6 months Follow Up Appt 6 months [facility] Work Phone: Start: 10-22-2015 End: 11-06-2015 Follow Up Appt 3 months Follow Up Appt 3 months [facility] Work Phone: Start: 10-22-2015 End: 11-06-2015 [facility] Clinic [facility] Work Phone: Start: 10-22-2015 End: 11-06-2015 Follow Up Appt 3 months Follow Up Appt 3 months [facility] Work Phone: Start: 10-22-2015 End: 11-06-2015 [facility] Clinic [facility] Work Phone: Start: 07-23-2015 End: 11-06-2015 Follow Up Appt 3 months Follow Up Appt 3 months [facility] Work Phone: Start: 07-23-2015 End: 11-06-2015 [facility] Clinic [facility] Work Phone: Start: 07-23-2015 End: 11-06-2015 Follow Up Appt 3 months Follow Up Appt 3 months [facility] Work Phone: Start: 07-23-2015 End: 11-06-2015 [facility] Clinic [facility] Work Phone: Start: 04-19-2015 End: 11-06-2015 Follow Up Appt 3 months Follow Up Appt 3 months [facility] Work Phone: Start: 04-19-2015 End: 04-19-2015 Follow Up Appt 6 months Follow Up Appt 6 months [facility] Work Phone: Start: 04-19-2015 End: 04-19-2015 MMM MMM [facility] Work Phone: Start: 04-19-2015 End: 11-06-2015 Pac[facility] Clinic [facility] Work Phone: Start: 04-19-2015 End: 11-06-2015 Follow Up Appt 3 months Follow Up Appt 3 months [facility] Work Phone: Start: 04-19-2015 End: 04-19-2015 Follow Up Appt 6 months Follow Up Appt 6 months [facility] Work Phone: Start: 04-19-2015 End: 04-19-2015 MMM MMM [facility] Work Phone: Start: 04-19-2015 End: 11-06-2015 [facility] Clinic [facility] Work Phone: Start: 01-15-2015 End: 11-06-2015 Follow Up Appt 3 months Follow Up Appt 3 months [facility] Work Phone: Start: 01-15-2015 End: 11-06-2015 [facility] Work Phone: Start: 01-15-2015 End: 11-06-2015 Follow Up Appt 3 months Follow Up Appt 3 months [facility] Work Phone: Start: 01-15-2015 End: 11-06-2015 [facility] Clinic [facility] Work Phone: Start: 10-16-2014 End: 11-06-2015 Follow Up Appt 3 months Follow Up Appt 3 months [facility] Work Phone: Start: 10-16-2014 End: 11-06-2015 [facility] Clinic [facility] Work Phone: Start: 10-16-2014 End: 11-06-2015 Follow Up Appt 3 months Follow Up Appt 3 months [facility] Work Phone: Start: 10-16-2014 End: 11-06-2015 Pacer Clinic [facility] Work Phone: Start: 10-09-2014 End: 10-09-2014 [facility] 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 [facility] Work Phone: Start: 10-09-2014 End: 10-09-2014 Follow Up Appt 6 months Follow Up Appt 6 months [facility] Work Phone: Start: 10-09-2014 End: 10-09-2014 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 [facility] Work Phone: Start: 10-09-2014 End: 10-09-2014 Follow Up Appt 6 months Follow Up Appt 6 months [facility] Work Phone: Start: 07-17-2014 End: 10-04-2014 Follow Up Appt 3 months Follow Up Appt 3 months [facility] Work Phone: Start: 07-17-2014 End: 10-04-2014 Pacer Clinic [facility] Work Phone: Start: 07-17-2014 End: 10-04-2014 Follow Up Appt 3 months Follow Up Appt 3 months [facility] Work Phone: Start: 07-17-2014 End: 10-04-2014 [facility] Clinic [facility] Work Phone: Start: 04-13-2014 End: 10-04-2014 Follow Up Appt 3 months Follow Up Appt 3 months [facility] Work Phone: Start: 04-13-2014 End: 10-04-2014 [facility] Clinic [facility] Work Phone: Start: 04-13-2014 End: 10-04-2014 Follow Up Appt 3 months Follow Up Appt 3 months [facility] Work Phone: Start: 04-13-2014 End: 10-04-2014 [facility] Clinic [facility] Work Phone: Start: 04-11-2014 End: 04-11-2014 Follow Up Appt 6 months Follow Up Appt 6 months [facility] Work Phone: Start: 04-11-2014 End: 04-11-2014 MMM MMM [facility] Work Phone: Start: 04-11-2014 End: 04-11-2014 Follow Up Appt 6 months Follow Up Appt 6 months [facility] Work Phone: Start: 04-11-2014 End: 04-11-2014 MMM MMM [facility] Work Phone: Start: 03-09-2014 End: 03-09-2014 Follow Up BP Check Follow Up BP Check [facility] Work Phone: Start: 03-09-2014 End: 03-09-2014 Follow Up BP Check Follow Up BP Check [facility] Work Phone: Start: 12-22-2013 End: 10-04-2014 Follow Up Appt 3 months Follow Up Appt 3 months [facility] Work Phone: Start: 12-22-2013 End: 10-04-2014 Pacer Clinic [facility] Work Phone: Start: 12-22-2013 End: 10-04-2014 Follow Up Appt 3 months Follow Up Appt 3 months [facility] Work Phone: Start: 12-22-2013 End: 10-04-2014 Pacer Clinic [facility] Work Phone: Start: 10-11-2013 End: 10-11-2013 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 [facility] Work Phone: Start: 10-11-2013 End: 10-11-2013 Follow Up Appt 6 months Follow Up Appt 6 months [facility] Work Phone: Start: 10-11-2013 End: 10-11-2013 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 [facility] Work Phone: Start: 10-11-2013 End: 10-11-2013 Follow Up Appt 6 months Follow Up Appt 6 months [facility] Work Phone: Start: 09-15-2013 End: 09-28-2013 Follow Up Appt 3 months Follow Up Appt 3 months [facility] Work Phone: Start: 09-15-2013 End: 09-28-2013 Pacer Clinic [facility] Work Phone: Start: 09-15-2013 End: 09-28-2013 Follow Up Appt 3 months Follow Up Appt 3 months [facility] Work Phone: Start: 09-15-2013 End: 09-28-2013 Pacer Clinic [facility] Work Phone: Start: 06-09-2013 End: 09-28-2013 Follow Up Appt 3 months Follow Up Appt 3 months [facility] Work Phone: Start: 06-09-2013 End: 09-28-2013 Pacer Clinic [facility] Work Phone: Start: 06-09-2013 End: 09-28-2013 Follow Up Appt 3 months Follow Up Appt 3 months [facility] Work Phone: Start: 06-09-2013 End: 09-28-2013 Pacer Clinic [facility] Work Phone: Start: 04-14-2013 End: 04-14-2013 Follow Up Appt 6 months Follow Up Appt 6 months [facility] Work Phone: Start: 04-14-2013 End: 04-14-2013 MMM MMM [facility] Work Phone: Start: 04-14-2013 End: 04-14-2013 Follow Up Appt 6 months Follow Up Appt 6 months [facility] Work Phone: Start: 04-14-2013 End: 04-14-2013 MMM MMM [facility] Work Phone: Start: 03-08-2013 End: 09-28-2013 Follow Up Appt 3 months Follow Up Appt 3 months [facility] Work Phone: Start: 03-08-2013 End: 09-28-2013 Pacer Clinic [facility] Work Phone: Start: 03-08-2013 End: 09-28-2013 Follow Up Appt 3 months Follow Up Appt 3 months [facility] Work Phone: Start: 03-08-2013 End: 09-28-2013 Pacer Clinic [facility] Work Phone: Start: 01-24-2013 End: 09-28-2013 Follow Up Appt 1 month Follow Up Appt 1 month [facility] Work Phone: Start: 01-24-2013 End: 09-28-2013 Pacer Clinic [facility] Work Phone: Start: 01-24-2013 End: 09-28-2013 Follow Up Appt 1 month Follow Up Appt 1 month [facility] Work Phone: Start: 01-24-2013 End: 09-28-2013 Pacer Clinic [facility] Work Phone: Start: 01-17-2013 End: 09-28-2013 *BMP *BMP [facility] Work Phone: Start: 01-17-2013 End: 09-28-2013 *UA - Urinalysis w/o Micro *UA - Urinalysis w/o Micro [facility] Work Phone: Start: 01-17-2013 End: 09-28-2013 CBC W Auto Differential panel - Blood *CBC without Diff [facility] Work Phone: Start: 01-17-2013 End: 09-28-2013 Chest x-ray X-Ray, Chest, PA & Lateral [facility] Work Phone: Start: 01-17-2013 End: 09-28-2013 Ecg routine ecg w/least 12 lds w/i&r EKG (In office) [facility] Work Phone: Start: 01-17-2013 End: 09-28-2013 Follow Up Appt 6 weeks Follow Up Appt 6 weeks [facility] Work Phone: Start: 01-17-2013 End: 09-28-2013 INR Coag RelTime (PPP) *PT/INR [facility] Work Phone: Start: 01-17-2013 End: 09-28-2013 MMM MMM [facility] Work Phone: Start: 01-17-2013 End: 01-17-2013 Pacemaker Primary Insertion Pacemaker Primary Insertion [facility] Work Phone: Start: 01-17-2013 End: 09-28-2013 *BMP *BMP [email or web address] Work Phone: Start: 01-17-2013 End: 09-28-2013 *UA - Urinalysis w/o Micro *UA - Urinalysis w/o Micro [email or web address] Work Phone: Start: 01-17-2013 End: 09-28-2013 CBC W Auto Differential panel - Blood *CBC without Diff [email or web address] Work Phone: Start: 01-17-2013 End: 09-28-2013 Chest x-ray X-Ray, Chest, PA & Lateral [email or web address] Work Phone: Start: 01-17-2013 End: 09-28-2013 Coagulation factor induced.INR assay in platelet poor plasma *PT/INR [email or web address] Work Phone: Start: 01-17-2013 End: 09-28-2013 Electrocardiogram, complete EKG (In office) [email or web address] Work Phone: Start: 01-17-2013 End: 09-28-2013 Follow Up Appt 6 weeks Follow Up Appt 6 weeks [email or web address] Work Phone: Start: 01-17-2013 End: 09-28-2013 MMM MMM [email or web address] Work Phone: Start: 01-17-2013 End: 01-17-2013 Pacemaker Primary Insertion Pacemaker Primary Insertion [email or web address] Work Phone: Start: 01-14-2013 End: 01-14-2013 Ecg routine ecg w/least 12 lds w/i&r EKG (In office) [email or web address] Work Phone: Start: 01-14-2013 End: 01-14-2013 Electrocardiogram, complete EKG (In office) [email or web address] Work Phone: Start: 03-24-2012 End: 03-24-2012 Ecg routine ecg w/least 12 lds w/i&r EKG (In office) [email or web address] Work Phone: Start: 03-24-2012 End: 03-24-2012 Follow Up Appt 1 year Follow Up Appt 1 year [facility] Work Phone: Start: 03-24-2012 End: 03-24-2012 Electrocardiogram, complete EKG (In office) [facility] Work Phone: Start: 03-24-2012 End: 03-24-2012 Follow Up Appt 1 year Follow Up Appt 1 year [facility] Work Phone: Start: 09-17-2011 End: 09-17-2011 Follow Up Appt 6 months Follow Up Appt 6 months [facility] Work Phone: Start: 09-17-2011 End: 09-17-2011 Follow Up Appt 6 months Follow Up Appt 6 months [facility] Work Phone: Immunizations Immunization Date Immunization Notes Care Provider Fa [facility] 02-13-2021 COVID-19, mRNA, LNP- S, PF, 100 mcg or 50 mcg dose; Translations: [Moderna COVID-19 Vaccine] CLAUDY OTT MD [facility] 01-31-2021 influenza, high dose seasonal, preservative-free; Translations: [Fluad Quadrivalent PF ] CLAUDY OTT MD [facility] 05-31-2020 SARS-CoV-2 (COVID-19 ) mRNA-1273 vaccine CLAUDY OTT MD [facility] Social History Date Type Detail Facility Start: 11-01-2018 Tobacco smoking status Ex-smoker (fi nding) [facility] Sex Assigned At Male [facility] Evaluation + Plan note Laboratory Note Date & Type Note Facility Evaluation + Plan note Future Appointments Appointment Date:09/09/2021 10:05:00 AM Scheduled Provider:CLAUDY OTT MD Location:[facility] Appointment Type:PC OV Future Scheduled TestsComplete Blood Count 03/11/21Lipid Profile 03/11/21Complete Metabolic Panel 03/11/21 [facility] Evaluation + Plan note Note Date & Type Note Facility Evaluation + Plan note Future Appointments Appointment Date:09/09/2021 10:05:00 AM Scheduled Provider:CLAUDY OTT MD Location:[facility] Appointment Type:PC OV [facility] Hospital course Narrative Note Date & Type Note Facility Hospital course Narrative No data available for this section [facility] Hospital Discharge instructions Note Date & Type Note Facility Hospital Discharge instructions No data available for this section [facility] Progress note Note Date & Type Note Facility Progress note No data available for this section [facility] Summary Purpose Family History No Family History Records Found Advance Directives No Advanced Directives Records Found Additional Source Comments Care Team (unrecognized sect ion and content) Personnel Name: CLAUDY OTT MD Address: [address] [place] [address] Personnel Name: CLAUDY OTT MD Address: [address] [place] [address] (unrecognized sect ion and content) No Status Records Found INFORMATION SOURCE (unrecogn ized section and content) FOR RECORDS PERTAINING TO PATIENTS WHO ARE OR HAVE BEEN ENROLLED IN A CHEMICAL DEPENDENCY/SUBSTANCEABUSE PROGRAM, SOME INFORMATION MAY BE OMITTED. This clinical summary was aggregated from multiple sources. Caution should be exercised in using it in the provision of clinical care. This summary normalizes information from multiple sources, and as a consequence, information in this document may materially change the coding, format and clinical context of patient data. In addition, data may be omitted in some cases. CLINICAL DECISIONS SHOULD BE BASED ON THE PRIMARY CLINICAL RECORDS. [facility] provides no warranty or guarantee of the accuracy or completeness of information in this document.
--- NOTE | 2023-04-15 13:01 | CL.IE_ITS ---
Patient: EMMANUEL MARIE Study Date: 04/15/2023 Performing: Cal Michaud MD : 1935 Age: 87 Gender: male PROCEDURES PERFORMED [id number])BATTERY REMOVAL+REPLACEMENT PACER-DUAL LEAD INDICATIONS End-of-life replacement indicator PROCEDURE DETAILS The patient was brought to the Catheterization Lab in the postabsorptive nonsedated state. Informed consent was obtained prior to the procedure. Local anesthetic was given subcutaneously to the left upper chest area with Lidocaine 2%. Incision was made to the left upper chest. PPM generator was removed. PPM generator was attached to the lead(s) and inserted into the pocket. PPM generator was then interrogated by the cad programmer. Device pocket was irrigated with antibiotic. Subcutaneous closure was completed with 3-0 Vicryl. Skin closure was completed with 4-0 Vicryl. Steri-strips applied to Lt chest area. Instrument, sponge, and needle counts were noted to be normal. The patient tolerated the procedure well. Estimated Blood Loss: 10 ml's IMPLANTED / EX-PLANTED DEVICES IMPLANTED DEVICE(S): PPM Generator - Semicon[employer] Wafers Marker: [employer]otoup, Model # [id number] , Serial # [id number] DEVICE PARAMETERS DEVICE PARAMETERS: Mode - DDDR lower rate - 60 upper rate - 130 rate response on Mode- DDDR Lower rate- 60 Upper rate- 130 CONCLUSIONS / RECOMMENDATIONS Device Conclusions: Successful implantation of a dual chamber pacemaker battery change and replacement Device Recommendations: Follow up with Primary Care Physician PROCEDURE MEDICATIONS Versed 1 mg IV Fentanyl 50 mcg IV Fentanyl 25 mcg IV Oxygen: 2 L/min via nasal cannula Antibiotic given in appropriate timeframe. Ancef 2 Gm IV @ 04/15/2023 11:52:09 Signed By Cal Michaud MD On 04/15/2023 13:00:16 Cal Michaud MD
== END 2023-04-15 15:24 | disposition home or self-care (01) ==
LOC: ED 10:41 → CLSP 11:06
PROVIDERS: Emergency Provider Emergency Medicine; PCP Family Medicine; Visit Provider Internal Medicine Cardiovascular Disease
DX: Z45.010 Encounter for checking and testing of cardiac pacemaker pulse generator [battery] (principal); I48.91 Unspecified atrial fibrillation; I49.5 Sick sinus syndrome; R42 Dizziness and giddiness; E78.5 Hyperlipidemia, unspecified; I10 Essential (primary) hypertension; I49.3 Ventricular premature depolarization; G47.33 Obstructive sleep apnea (adult) (pediatric); Z79.01 Long term (current) use of anticoagulants; Z79.899 Other long term (current) drug therapy; Z86.16 Personal history of COVID-19; Z87.891 Personal history of nicotine dependence
CPT/HCPCS: 33228; 80048; 85025; 93005; 99152; 99153; 99284; J7030; J7050; A4216

== ENCOUNTER → 2023-05-11 | Outpatient (CLI) | payer MEDICARE, OTHER, SELFPAY | END | disposition home or self-care (01) | LOC: SL 11:03 | PROVIDERS: PCP Family Medicine; Visit Provider Internal Medicine Critical Care Medicine | DX: G47.31 Primary central sleep apnea (principal) | CPT/HCPCS: 98960; G0463 ==

== ENCOUNTER 2023-08-14 06:47 | Day surgery (SDC) | payer MEDICARE, OTHER, SELFPAY ==
--- NOTE | 2023-08-03 09:02 | EKG12_ITS ---
Test Reason : PRE-OP Blood Pressure : / mmHG Vent. Rate : 070 BPM Atrial Rate : 081 BPM P-R Int : 000 ms QRS Dur : 164 ms QT Int : 450 ms P-R-T Axes : 000 -77 091 degrees QTc Int : 486 ms Ventricular-paced rhythm Abnormal ECG Confirmed by TEOFILO MATHEW, SHREYAS ([id number]), social media editor YOSEPH DANIEL ([id number]) on 08/03/2023 1:42:52 PM Referred By: Odell Sheriff Confirmed By:ADIA RED MD
[2023-08-03 09:45] LABS: Hematocrit 38.6 % (40-54); Hemoglobin 12.5 g/dL (13.0-16.5); Mean Corp Hgb Conc 32.4 g/dL (32-36); Mean Corpuscular Hgb 29.8 pg (27.0-32.0); Mean Corpuscular Volume 91.9 fL (80-94); Mean Platelet Vol. 10.1 fl (6.2-12.0); Platelet Count 166 K/mm3 (150-450); RBC Distribution Width CV 12.6 % (11.6-14.6); RBC Distribution Width SD 42.2 fl (35.1-43.9); White Blood Count 7.8 K/mm3 (4.4-11.0)
[2023-08-03 09:56] LABS: International Normalized Ratio 1.3; Prothrombin Time (Protime)PT. 16.5 SECONDS (11.7-14.9)
[2023-08-03 09:57] LABS: Partial Thromboplast Time 33.5 Seconds (24.1-36.2)
[2023-08-03 10:56] LABS: AST(SGOT) 18 U/L (15-37); Alanine Aminotransfer ALT/SGPT 17 U/L (16-61); Albumin, Serum 3.3 g/dL (3.2-5.0); Alkaline Phosphatase 89 U/L (45-117); Anion Gap 3 (5-15); BUN 22 mg/dL (7-18); BUN/Creat Ratio 24.9 RATIO (10-20); Bilirubin, Direct 0.34 mg/dL (0.00-0.30); Calcium,Total 9.1 mg/dL (8.5-10.1); Chloride 103 mmol/L (98-107); Creatinine, Serum 0.88 mg/dL (0.70-1.30); EST Glomerular Filtration Rate 86 mL/min (>60); Est Glom Filt Rate - Afr Amer 104 mL/min (>60); Globulin 4.1 g/dL (2.2-4.2); Glucose 107 mg/dL (74-106); Potassium 3.5 mmol/L (3.5-5.1); Protein, Total 7.4 g/dL (6.4-8.2); Sodium Level 139 mmol/L (136-145)
[2023-08-14] VITALS (8 sets, daily range): BP systolic 117–159; BP diastolic 72–93; PULSE 70; RESP 14–18; TEMP 36.1–37; O2SAT 92–99; BMI 25.8
[2023-08-14] MEDS: Lactated Ringers 1,000 ML 15 ML IV (07:21)
[2023-08-14] MEDS: Cefazolin 2 GM in 0.9% Normal Saline (100mL Bag) 100 ML IV (08:57)
--- NOTE | 2023-08-14 08:57 | HP.PCM_ITS ---
[facility] - General General Date of Service: 08/14/23 Chief Complaint: 88-year-old male with bladder cancer [facility] Narrative EMMANUEL MARIE, is a 88 M who presents transurethral section of a large bladder tumor [facility] Medical History (Updated 07/31/23 @ 08:44 by Penny Arriola) Alcohol use Ambulates with cane Arthritis BiPAP (biphasic positive airway pressure) dependence Bradycardia Cardiology follow-up encounter Difficulty swallowing Essential (primary) hypertension Excessive bleeding Former smoker History of atrial fibrillation History of diverticulitis History of echocardiogram History of edema History of pacemaker Hyperlipidemia Injury of head and neck Obstructive sleep apnea Osteoporosis Paroxysmal ventricular tachycardia Premature ventricular contractions 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 Shortness of breath on exertion Walker as ambulation aid Wears glasses Wears partial dentures Home Medications multivitamin with folic acid 400 mcg tablet 1 tab PO DAILY vitamin 01/18/13 [History Last Taken 07/26/18] nitroglycerin 0.4 mg sublingual tablet 0.4 mg sublingual Q5M PRN Chest Pain 01/18/13 [History Last Taken 07/26/18] latanoprost 0.005 % eye drops 1 drp ophthalmic (eye) QHS eyes 30 days #2 mL 04/10/21 [History Last Taken Unknown] pravastatin 40 mg tablet 40 mg PO QHS cholesterol 09/06/22 [History Last Taken Unknown] acetaminophen 500 mg tablet 1,000 mg (2 x 500 mg) PO Q6H PRN Pain Score 1-5 #0 tabs 09/16/22 [Rx Last Taken Unknown] hydrochlorothiazide 25 mg tablet 25 mg PO QDAY water/BP #90 tabs 05/15/23 [Rx Last Taken Unknown] apixaban 5 mg tablet (Eliquis) 5 mg PO BID #180 TABLETS 08/13/23 [Rx Last Taken 08/11/23] metoprolol succinate 50 mg tablet,extended release 24 hr 50 mg PO DAILY #90 TABLETS 08/13/23 [Rx Last Taken 08/13/23 12:00] ciprofloxacin HCl 500 mg tablet (Cipro) 500 mg PO BID #14 tabs 08/14/23 [Rx Last Taken Unknown] Allergy/AdvReac Type Severity Reaction Status Date / Time No Known Allergies Allergy Verified 08/14/23 07:04 Family History Father , age 77 Cancer larynx and prostate Surgical History (Updated 07/31/23 @ 08:44 by Penny Arriola) Cardiac pacemaker in situ (01/2013) History of bilateral cataract extraction History of colonoscopy History of surgery Social History household members: none Smoking Status: Former smoker how long ago did patient quit smokin alcohol intake: current alcohol intake frequency: a few times a week Alcohol type: wine substance use type: does not use caffeine: No Vital Signs Vital Signs Vital Signs: 08/14/23 07:05 08/14/23 07:05 Temperature 97.2 F L Temperature Source Temporal Pulse Rate 70 Respiratory Rate 16 Respiratory Pattern Normal Blood Pressure 159/93 H Blood Pressure Mean 115 Blood Pressure Source Monitor Blood Pressure Position Sitting Blood Pressure Location Left Arm Pulse Ox 98 Oxygen Delivery Method Room Air Weight Weight: 79.379 kg Body Mass Index (BMI) 25.8 Results Lab / Micro Data 08/03/23 09:14 08/03/23 09:14
--- NOTE | 2023-08-14 08:58 | PCM.DC ---
Discharge Instructions Diet Discharge Diet: No restrictions Activity Discharge Activity: Return to Normal Activity and May Not Drive (while taking narcotic pain medications.) Dressing / Incision Call your doctor if you observe: Fever of 101 or Higher Catheter: Jaffe to leg bag and Jaffe to large bag Drain: [place] Follow Up Care Please Follow Up With: Odell Sheriff MD When: Call [phone] for an appointment Test Results: Test results from this visit will be discussed in further detail at your follow-up appointment, if applicable. Discharge Plan Admission Primary Reason for Your Visit: TURBT Attending Provider: Odell Sheriff Primary Care Provider: Manuela Ribera Discharge Orders/Prescriptions Prescriptions: New ciprofloxacin HCl [Cipro] 500 mg tablet 500 mg PO BID Qty: 14 0RF Continued latanoprost 0.005 % drops 1 drp OPHTHALMIC QHS 30 Days Qty: 2 Rx Instructions: both eyes nitroglycerin 0.4 MG tablet 0.4 mg SUBLINGUAL Q5M PRN (Reason: Chest Pain) Patient Comments: RELIEF CHEST PAIN multivitamin with folic acid 1 TABLET tablet 1 tab PO DAILY Patient Comments: VITAMINS pravastatin 40 mg tablet 40 mg PO QHS acetaminophen 500 mg Tablet 1,000 mg PO Q6H PRN (Reason: Pain Score 1-5) Qty: 0 0RF hydrochlorothiazide 25 mg tablet 25 mg PO QDAY Qty: 90 3RF metoprolol succinate 50 mg tablet extended release 24 hr 50 mg PO DAILY Qty: 90 3RF Held Eliquis 5 mg tablet 5 mg PO BID Qty: 180 3RF Hold Instructions: Resume on 08/28/23. Other Ambulatory Orders: 12 Lead EKG (Routine) Timeframe: [id number] Location: None Selected Ordered By: Dr. Rupert Aguayo Referrals / Follow Up: Odell Sheriff MD [Med Staff - Active Staff] - Manulea Ribera DO [Primary Care Provider] - Disposition Disposition (needs filled in before D/C Order can be placed): Home, Self Care
--- NOTE | 2023-08-14 09:05 | BLB_PTH ---
PATIENT: EMMANUEL MARIE [place] [facility] [id number] AGE/SX: 88/M ROOM: RE08/14/[address]: Dr. Odell Sheriff MD : 1935 BED: DIS: 08/14/2023 SPEC #: [id number] RECD: 08/14/23 11:00 STATUS: ANNE DAWKINS #: [id number] BRONSON: 08/14/23 09:[address]: Odell Sheriff DEPT: SURGICAL PATHOLOGY RECD BY: Dae Keith ENTERED: 08/14/23 11:47 SP TYPE: TURB OTHR DR: Manuela Ribera DO Tissues: Urinary bladder, NOS Procedures: Surgery Specimen Level V HEADER OPERATION: Cysto, transurethral resection, bladder tumor PRE-OP DIAGNOSIS: Bladder tumor TISSUE SUBMITTED: Bladder tumor MICROSCOPIC DIAGNOSIS Urinary bladder tumor, transurethral resection: Papillary urothelial carcinoma. See cancer template below: JEANETTE/ 08/17/23 COMMENT BLADDER CANCER (TUR) SUMMARY Procedure: Transurethral resection of bladder tumor (TURBT) Tumor site: Not specified Histologic type: Papillary urothelial carcinoma Associated epithelial lesions: None identified Histologic grade: 1/3 (WHO Grade I) Tumor configuration: Papillary Muscularis propria presence: muscularis propria not present Lymphvascular invasion: Not identified Tumor extension: Confined to urothelium Additional pathologic findings: None PATHOLOGIC STAGE: Tis Nx Mx The above summary is in compliance with College of [place] Path[employer] (CAP) Cancer Protocols Checklist and [place] Joint Committee on Cancer (AJCC), Staging Manual, 8th Ed. MICROSCOPIC DESCRIPTION Slides are reviewed. GROSS DESCRIPTION Received in fixative is one container labeled with the patient's name and designated Bladder tumor. The specimen consists of two minute fragments of bonds soft tissue each measuring 0.1cm in greatest dimension. The entire specimen is submitted in one cassette. OFELIA/ 08/14/2023 TC: 0 CPT: 62362
[2023-08-14] MEDS: MitoMYcin 40 MG in Syringe 1 EACH 2400 MG INSTILLAT (09:25)
--- NOTE | 2023-08-14 09:27 | OP.PCM_ITS ---
Report of Operation Date of Procedure: 08/14/23 Pre-Operative Diagnosis: Bladder tumor medium in size 3 cm x 3 cm in size later al wall of the bladder Post-Operative Diagnosis: Same Surgery/Procedure Performed:: Transurethral section of bladder tumor instillation of Mitomycin-C Description of Surgical Findings:: Patient presented to the hospital for treatment of a tumor that was found in the bladder with a very large bladder tumor. Patient understands is possible it may not be able to resect the entire tumor. Patient also understands is possible that the patient may need multiple procedures or more invasive procedures to cure him of this cancer. Patient was taken back to the operating room after smooth induction of anesthesia the patient was placed supine on the table. The patient was placed in dorsolithotomy position. The urethra and genitals prepped and draped in usual sterile fashion. I went into the bladder with a 30 degree lens and a cystoscope was performed and identified the tumor the tumors which was about 3 centimeters in size and occupying mostly the left lateral wall of the bladder. I then switched over to the 70 degree lens and inspected the rest of the bladder with a 70 degree lens to make sure there is no other tumors in the bladder and to identify all the tumor locations. The right and left ureteral orifice were identified. The tumor was not involved in the ureteral orifices. I then placed the Olympus bipolar resectoscope with a large loop into the bladder. I then started resected the tumor and started superficially shaving small little pieces working my way to the base of the tumor. As I went along I then cauterize any bleeders that were encountered during the resection. The tumor pieces were then flushed out of the bladder and continued resecting the tumor until finally I got down to the base of the tumor and the muscle of the bladder was then identified a small little bit of muscle was taken with the resection. The Ellik was used then to evacuate all the tumor pieces out of the bladder. I then cauterized extensively the tumor base and also circumferentially around where the tumor was. Again we made sure to evacuate all the pieces out the bladder. I made sure there was no more bleeding from the base of the bladder and then over the tumor pieces were then evacuated out and sent off as a specimen. After the resection of the entire tumor was completed then treatment with Mitomycin-C was performed. We then placed the catheter in the bladder and the patient was taken back to the PACU in stable condition. Tumor appeared to be a non invasive superficial bladdder cancer. Surgeon: Odell Sheriff Type of Anesthesia: General Drains: 18 fr. Estimated Blood Loss (mL): 0 Admit VTE Documentation VTE Present on Admission: No VTE Mechan Device Prophylaxis: SCD's VTE Pharm Prophylaxis ordered?: No
[2023-08-14] MEDS: Ketorolac 15 MG/ML Vial IV (09:51)
== END 2023-08-14 13:59 | disposition home or self-care (01) ==
LOC: SDC 06:48 → AC 06:49
PROVIDERS: Anesthesiology; PCP Family Medicine; Referring Provider Urology; Visit Provider Urology
PROC: 0T5B8ZZ Destruction of Bladder, Via Natural or Artificial Opening Endoscopic (ICD-10-PCS; CPT 51720; principal; 2023-08-14 08:55)
DX: C67.9 Malignant neoplasm of bladder, unspecified (principal); I48.19 Other persistent atrial fibrillation; I47.20 Ventricular tachycardia, unspecified; I10 Essential (primary) hypertension; E78.5 Hyperlipidemia, unspecified; Z87.891 Personal history of nicotine dependence; Z79.01 Long term (current) use of anticoagulants; Z79.899 Other long term (current) drug therapy; Z95.0 Presence of cardiac pacemaker
CPT/HCPCS: 52235; 51720; 00912; 36415; 80048; 80076; 85027; 85610; 85730; 88307; 93005; J7120; J9280; J2405

== ENCOUNTER → 2024-01-08 | Outpatient (CLI) | payer MEDICARE, OTHER, SELFPAY ==
[2024-01-08 12:07] LABS: Absolute Lymphocyte Count 1.27 X10^3/uL (0.83-4.51); Absolute Neutrophil Count 4.5 X10^3/uL (2.0-7.7); Basophil# 0.04 X10^3/uL; Basophil% 0.6 % (0-1); Eosinophil# 0.21 X10^3/uL; Eosinophils% 3.1 % (0-5); Hematocrit 38.6 % (40-54); Hemoglobin 12.4 g/dL (13.0-16.5); Lymphocyte # 1.27 X10^3/ul (0.83-4.51); Lymphocyte % 18.7 % (19-41); Mean Corp Hgb Conc 32.1 g/dL (32-36); Mean Corpuscular Hgb 30.5 pg (27.0-32.0); Mean Corpuscular Volume 94.8 fL (80-94); Mean Platelet Vol. 10.2 fl (6.2-12.0); Monocyte# 0.75 X10^3/uL; NRBC Flagged by Analyzer 0 % (0-5); Neutrophil # 4.51 X10^3/uL (2.7-7.7); Neutrophil % 66.3 % (47-70); Platelet Count 119 K/mm3 (150-450); RBC Distribution Width CV 12.9 % (11.6-14.6); RBC Distribution Width SD 44.5 fl (35.1-43.9); Red Blood Count 4.07 M/mm3 (4.6-6.2); White Blood Count 6.8 K/mm3 (4.4-11.0)
[2024-01-08 12:49] LABS: Vitamin D,25 Hydroxy 39.9 ng/mL
[2024-01-08 13:17] LABS: AST(SGOT) 21 U/L (15-37); Alanine Aminotransfer ALT/SGPT 22 U/L (16-61); Albumin, Serum 3.6 g/dL (3.2-5.0); Alkaline Phosphatase 67 U/L (45-117); Anion Gap 6 (5-15); BUN 21 mg/dL (7-18); BUN/Creat Ratio 22.7 RATIO (10-20); Calcium,Total 9.4 mg/dL (8.5-10.1); Chloride 102 mmol/L (98-107); Cholesterol 133 mg/dL (200); Creatinine, Serum 0.92 mg/dL (0.70-1.30); EST Glomerular Filtration Rate 82 mL/min (>60); Est Glom Filt Rate - Afr Amer 99 mL/min (>60); Globulin 3.7 g/dL (2.2-4.2); Glucose 96 mg/dL (74-106); High Density Lipoprotein 76 mg/dL; Potassium 3.6 mmol/L (3.5-5.1); Protein, Total 7.3 g/dL (6.4-8.2); Sodium Level 138 mmol/L (136-145); Triglycerides 66 mg/dL; Very Low Density Lipoprotein 13 mg/dL (5-40)
== END | disposition home or self-care (01) ==
LOC: MTLAB 10:44
PROVIDERS: PCP Family Medicine; Referring Provider Family Medicine; Visit Provider Family Medicine
DX: D64.9 Anemia, unspecified (principal); C67.9 Malignant neoplasm of bladder, unspecified; I10 Essential (primary) hypertension; Z12.5 Encounter for screening for malignant neoplasm of prostate
CPT/HCPCS: 36415; 80053; 80061; 82306; 84153; 84443; 85025; G0103

== ENCOUNTER → 2024-06-23 | Outpatient (CLI) | payer MEDICARE, OTHER, SELFPAY ==
[2024-06-23 17:47] LABS: Absolute Lymphocyte Count 1.22 X10^3/uL (0.83-4.51); Basophil# 0.03 X10^3/uL; Basophil% 0.4 % (0-1); Eosinophil# 0.13 X10^3/uL; Eosinophils% 1.5 % (0-5); Hematocrit 37.2 % (40-54); Hemoglobin 12.6 g/dL (13.0-16.5); Lymphocyte # 1.22 X10^3/ul (0.83-4.51); Lymphocyte % 14.3 % (19-41); Mean Corp Hgb Conc 33.9 g/dL (32-36); Mean Corpuscular Volume 91.4 fL (80-94); Mean Platelet Vol. 10.2 fl (6.2-12.0); Monocyte# 1.12 X10^3/uL; Monocyte% 13.1 % (0-10); NRBC Flagged by Analyzer 0 % (0-5); Neutrophil # 5.99 X10^3/uL (2.7-7.7); Neutrophil % 70.2 % (47-70); Platelet Count 168 K/mm3 (150-450); RBC Distribution Width CV 12.4 % (11.6-14.6); RBC Distribution Width SD 41.5 fl (35.1-43.9); Red Blood Count 4.07 M/mm3 (4.6-6.2); White Blood Count 8.5 K/mm3 (4.4-11.0)
[2024-06-23 18:35] LABS: ALB/GLOB Ratio 1.1 RATIO (0.9-2.4); AST(SGOT) 26 U/L (<=37); Alanine Aminotransfer ALT/SGPT 15 U/L (<=46); Albumin, Serum 3.6 g/dL (3.4-4.8); Alkaline Phosphatase 73 U/L (40-129); Anion Gap 10 (5-15); BUN 22 mg/dL (4-19); BUN/Creat Ratio 27.4 RATIO (10-20); Calcium,Total 9.2 mg/dL (7.6-11.0); Carbon Dioxide 29.9 mmol/L (21.0-32.0); Chloride 97 mmol/L (98-108); EST Glomerular Filtration Rate 84 (>60); Globulin 3.2 g/dL (2.2-4.2); Glucose 132 mg/dL (70-99); Potassium 3.2 mmol/L (3.3-5.1); Protein, Total 6.9 g/dL (5.9-8.4); Sodium Level 137 mmol/L (133-145); Total Bilirubin 1.38 mg/dL (0.00-1.30)
[2024-06-23 18:40] LABS: PSA,Total- Diagnostic 7.73 ng/mL (0.00-4.00); Vitamin D,25 Hydroxy 33.7 ng/mL (30-100)
== END | disposition home or self-care (01) ==
LOC: MTLAB 16:26
PROVIDERS: PCP Family Medicine; Referring Provider Family Medicine; Visit Provider Family Medicine
DX: I10 Essential (primary) hypertension (principal); C61 Malignant neoplasm of prostate; E55.9 Vitamin D deficiency, unspecified
CPT/HCPCS: 36415; 80053; 82306; 84153; 84443; 85025